=== PATIENT | male | born 1955 | race Caucasian/White ===

== ENCOUNTER → 2017-02-24 | Outpatient (CLI) | payer BC ==
--- NOTE | 2017-02-24 15:54 | MR ---
EXAMINATION TYPE: MR shoulder RT wo con DATE OF EXAM: 02/24/2017 COMPARISON: NONE HISTORY: Rt shoulder pain TECHNIQUE: Multiplanar, multisequence imaging of the right shoulder is performed without contrast. FINDINGS: Rotator Cuff: There is complete tear of the supraspinatus tendon. The supraspinatus muscle is severel y atrophic with fatty signal change. Small joint effusion is present. The infraspinatus muscle has so me fatty infiltration and degenerative changes. Acromioclavicular Joint: Hypertrophy with mild inferior spurring Glenohumeral Joint: Narrowed Labrum: There is degenerative type change within the glenoid labrum Biceps Tendon: Long head of the biceps tendon is poorly visualized. Small portion may be visualized w ithin the bicipital groove. Bone marrow signal: Postsurgical changes are within the humeral head. Marrow signal appears normal Other: The recess appears to have a filling defect present. Loose body could be present. Postsurgical changes are within the shoulder. IMPRESSION: 1. Complete tear of the supraspinatus tendon with retraction. 2. Probable complete tear of the infraspinatus tendon. 3. Fatty infiltration and atrophy of supraspinatus muscle and to a lesser degree the infraspinatus mu scle. 4. Small joint effusion. 5. Degenerative joint changes glenohumeral junction
== END | disposition home or self-care (01) ==
LOC: RADMRIMAIN 06:59
PROVIDERS: ATTEND Orthopaedic Surgery
DX: M75.121 Complete rotator cuff tear or rupture of right shoulder, not specified as traumatic (principal); M62.511 Muscle wasting and atrophy, not elsewhere classified, right shoulder

== ENCOUNTER → 2017-04-30 | Outpatient (CLI) | payer BC ==
[2017-04-30 12:54] LABS: Basophils # (A) 0.1 k/uL (0-0.2); Basophils % (A) 0 %; CH 29.9; CHCM 33.2; Eosinophils # (A) 0.2 k/uL (0-0.7); Eosinophils % (A) 2 %; HCT 45.4 % (39.0-53.0); HDW 2.73; HGB 15.3 gm/dL (13.0-17.5); Luc # (Auto) 0.33; Luc % (Auto) 2; Lymphocytes # (A) 2.5 k/uL (1.0-4.8); Lymphocytes % (A) 18 %; MCH 30.6 pg (25.0-35.0); MCHC 33.7 g/dL (31.0-37.0); MCV 90.6 fL (80.0-100.0); Mean Platelet Volume 7.7; Monocytes # (A) 0.9 k/uL (0-1.0); Monocytes % (A) 7 %; Neutrophils # (A) 9.7 k/uL (1.3-7.7); Neutrophils % (A) 71 %; RBC 5.01 m/uL (4.30-5.90); RDW 15.5 % (11.5-15.5); WBC 13.7 k/uL (3.8-10.6); WBC (Perox) 13.53
[2017-04-30 13:10] LABS: Anion Gap 9 mmol/L; Blood Urea Nitrogen 16 mg/dL (9-20); Calcium 9.1 mg/dL (8.4-10.2); Carbon Dioxide 24 mmol/L (22-30); Chloride 102 mmol/L (98-107); Glucose 143 mg/dL (74-99); Non-African American GFR(MDRD) >60 (>60 ml/min/1.73 sqM); Potassium 4.5 mmol/L (3.5-5.1); Sodium 135 mmol/L (137-145)
== END | disposition home or self-care (01) ==
LOC: LABWHC1 12:24
PROVIDERS: ATTEND Internal Medicine
DX: M12.812 Other specific arthropathies, not elsewhere classified, left shoulder (principal); Z79.1 Long term (current) use of non-steroidal anti-inflammatories (NSAID); Z79.84 Long term (current) use of oral hypoglycemic drugs; Z79.899 Other long term (current) drug therapy
CPT/HCPCS: 36415; 80048; 85025

== ENCOUNTER → 2017-08-12 | Outpatient (CLI) | payer BC ==
[2017-08-12 12:22] LABS: HCT 52.7 % (39.0-53.0); HGB 17.3 gm/dL (13.0-17.5); MCH 29.1 pg (25.0-35.0); MCHC 32.8 g/dL (31.0-37.0); MCV 88.8 fL (80.0-100.0); Mean Platelet Volume 7.1; Platelet Count 249 k/uL (150-450); RBC 5.94 m/uL (4.30-5.90); RDW 14.8 % (11.5-15.5); WBC 12.2 k/uL (3.8-10.6)
[2017-08-12 12:40] LABS: ALT 47 U/L (21-72); AST 25 U/L (17-59); Albumin 4.4 g/dL (3.5-5.0); Alkaline Phosphatase 73 U/L (38-126); Anion Gap 9 mmol/L; Blood Urea Nitrogen 19 mg/dL (9-20); Calcium 10.3 mg/dL (8.4-10.2); Carbon Dioxide 29 mmol/L (22-30); Chloride 102 mmol/L (98-107); Glucose 144 mg/dL (74-99); Potassium 5.3 mmol/L (3.5-5.1); Sodium 140 mmol/L (137-145); Total Bilirubin 0.5 mg/dL (0.2-1.3); Total Protein 7.8 g/dL (6.3-8.2)
== END | disposition home or self-care (01) ==
LOC: LABWHC1 11:59
PROVIDERS: ATTEND Physical Medicine & Rehabilitation
DX: Z51.81 Encounter for therapeutic drug level monitoring (principal); Z79.1 Long term (current) use of non-steroidal anti-inflammatories (NSAID)
CPT/HCPCS: 36415; 80053; 85027

== ENCOUNTER → 2019-08-31 | Outpatient (CLI) | payer BC, MEDICARE ==
--- NOTE | 2019-08-31 14:36 | US ---
EXAMINATION TYPE: US carotid duplex BILAT DATE OF EXAM: 08/31/2019 COMPARISON: NONE CLINICAL HISTORY: R10.84 Abd pain, R09.89 Carotid bruit, R22.41. Bruit EXAM MEASUREMENTS: RIGHT: Peak Systolic Velocity (PSV) cm/sec ----- Right CCA: 53.2 ----- Right ICA: 247.6 ----- Right ECA: 176.5 ICA/CCA ratio: 4.7 RIGHT: End Diastole cm/sec ----- Right CCA: 21.2 ----- Right ICA: 105.4 ----- Right ECA: 53.7 LEFT: Peak Systolic Velocity (PSV) cm/sec ----- Left CCA: 53.5 ----- Left ICA: 97.9 ----- Left ECA: 104.3 ICA/CCA ratio: 1.8 LEFT: End Diastole cm/sec ----- Left CCA: 20.5 ----- Left ICA: 46.2 ----- Left ECA: 22.0 VERTEBRALS (direction of flow): Right Vertebral: Antegrade Left Vertebral: Antegrade Rhythm: Normal Bilateral plaque in bulbs and right ICA. Elevated velocities in right ICA and ECA. IMPRESSION: 1. Greater than 70% stenosis within the right internal and external carotid arteries. 2. No hemodynamically significant stenosis seen in the visualized left carotid arterial system. Criteria for Assigning % of Stenosis / Diameter reduction (Estimation based on the indirect measurements of the internal carotid artery velocities (ICA PSV). 1. Normal (no stenosis)=ICA PSV < 125 cm/s: ratio < 2.0: ICA EDV<40 cm/s. 2. Less than 50% stenosis=ICA PSV < 125 cm/s: ratio < 2.0: ICA EDV<40 cm/s. 3. 50 to 69% stenosis=ICA PSV of 125 to 230 cm/s: ration 2.0 ? 4.0: ICA EDV 40-100 cm/s. 4. Greater than 70% stenosis to near occlusion= ICA PSV > 230 cm/s: ratio > 4.0: ICA EDV > 100 cm/s. 5. Near occlusion= ICA PSV velocities may be low or undetectable: variable ratio and ICA EDV. 6. Total occlusion=unable to detect flow.
--- NOTE | 2019-08-31 14:38 | US ---
EXAMINATION TYPE: US abdomen complete DATE OF EXAM: 08/31/2019 COMPARISON: NONE CLINICAL HISTORY: R10.84 Abd pain, R09.89 Carotid bruit, R22.41. Pain EXAM MEASUREMENTS: Liver Length: 18.0 cm Gallbladder Wall: .2 cm CBD: .4 cm Spleen: 13.6 cm Right Kidney: 11.5 x 4.7 x 4.5 cm Left Kidney: 12.3 x 4.8 x 4.7 cm Pancreas: Tail obscured by overlying bowel gas Liver: There is increased echogenicity of the hepatic parenchyma with diminished visualization of th e portal triads most commonly relating to hepatic steatosis and limiting evaluation for underlying he patic masses. Gallbladder: wnl Evidence for sonographic Tracy's sign: No CBD: wnl Spleen: Upper limits Right Kidney: wnl Left Kidney: Cystic area upper pole 4.8 x 4.8 x 4.8 cm. Upper IVC: wnl Abd Aorta: wnl The liver is heterogenous and hyperechoic. The intrahepatic portion of the IVC and proximal abdomina l aorta are within normal limits. There is no evidence of cholelithiasis. Common bile duct is unrem arkable. The visualized portions of the pancreas are homogenous. The spleen is upper limits of norm al size. IMPRESSION: 1. Sonographic findings most commonly related to hepatic steatosis. Correlate with liver function emy ts. 2. Borderline splenomegaly. 3. Left renal cyst measuring 4.8 cm appears simple.
== END | disposition home or self-care (01) ==
LOC: RADUSWWP 11:29
PROVIDERS: ATTEND Internal Medicine
DX: I65.21 Occlusion and stenosis of right carotid artery (principal); K76.0 Fatty (change of) liver, not elsewhere classified; N28.1 Cyst of kidney, acquired
CPT/HCPCS: 76700; 93880; 93922; 93923

== ENCOUNTER → 2019-11-05 | Outpatient (CLI) | payer MEDICARE ==
[2019-11-05 10:10] LABS: HGB 14.9 gm/dL (13.0-17.5); MCH 30.5 pg (25.0-35.0); MCHC 33.9 g/dL (31.0-37.0); Mean Platelet Volume 7.5; Platelet Count 229 k/uL (150-450); RBC 4.88 m/uL (4.30-5.90); RDW 14.3 % (11.5-15.5); WBC 13.2 k/uL (3.8-10.6)
[2019-11-05 10:15] LABS: INR 0.9 (<1.2); Prothrombin Time 9.8 sec (9.0-12.0)
[2019-11-05 10:22] LABS: ALT 24 U/L (4-49); AST 20 U/L (17-59); African American GFR (CKD) >90 (>60 ml/min/1.73 sqM); Albumin 4.4 g/dL (3.5-5.0); Albumin/Globulin Ratio 1.3; Alkaline Phosphatase 74 U/L (38-126); Anion Gap 10 mmol/L; Blood Urea Nitrogen 15 mg/dL (9-20); Calcium 9.7 mg/dL (8.4-10.2); Carbon Dioxide 23 mmol/L (22-30); Chloride 103 mmol/L (98-107); Globulin 3.3 g/dL; Glucose 167 mg/dL (74-99); Non-African American GFR(CKD) >90 (>60 ml/min/1.73 sqM); Potassium 4.5 mmol/L (3.5-5.1); Sodium 136 mmol/L (137-145); Total Bilirubin 0.5 mg/dL (0.2-1.3); Total Protein 7.7 g/dL (6.3-8.2)
== END | disposition home or self-care (01) ==
LOC: LABWHC1 08:40
PROVIDERS: ATTEND Internal Medicine Interventional Cardiology
DX: M79.604 Pain in right leg (principal); M79.605 Pain in left leg
CPT/HCPCS: 36415; 80053; 85027; 85610

== ENCOUNTER → 2019-11-22 | Outpatient (CLI) | payer MEDICARE ==
[2019-11-22 09:15] LABS: HCT 44.3 % (39.0-53.0); HGB 15.3 gm/dL (13.0-17.5); MCH 31.1 pg (25.0-35.0); MCHC 34.5 g/dL (31.0-37.0); MCV 90.2 fL (80.0-100.0); Mean Platelet Volume 7.6; Platelet Count 249 k/uL (150-450); RBC 4.91 m/uL (4.30-5.90); RDW 14.5 % (11.5-15.5); WBC 11.8 k/uL (3.8-10.6)
[2019-11-22 18:42] LABS: Albumin 4.4 g/dL (3.80-4.90); Albumin/Globulin Ratio 1.57 (1.60-3.17); Bilirubin, Conjugated 0.2 mg/dL (0.20-0.40); Bilirubin,Unconjugated 0.3 mg/dL; Chol/HDL Ratio 4.04; Globulin 2.8 g/dL (1.6-3.3); LDL Cholesterol,Calculated 39.8 mg/dL (0.0-131.0); Total Bilirubin 0.5 mg/dL (0.3-1.2); Total Protein 7.2 g/dL (6.2-8.2); VLDL Calculation 36.2 mg/dL (5.00-40.00)
== END | disposition home or self-care (01) ==
LOC: LABWHC1 08:29
PROVIDERS: ATTEND Internal Medicine
DX: E11.9 Type 2 diabetes mellitus without complications (principal); D72.829 Elevated white blood cell count, unspecified; E78.5 Hyperlipidemia, unspecified
CPT/HCPCS: 36415; 80061; 80076; 85027

== ENCOUNTER → 2019-11-27 | Outpatient (CLI) | payer MEDICARE ==
[2019-11-27 12:10] LABS: HCT 42.8 % (39.0-53.0); HGB 14.2 gm/dL (13.0-17.5); MCH 30.2 pg (25.0-35.0); MCHC 33.3 g/dL (31.0-37.0); MCV 90.6 fL (80.0-100.0); Mean Platelet Volume 7.6; Platelet Count 213 k/uL (150-450); RBC 4.72 m/uL (4.30-5.90); RDW 14.3 % (11.5-15.5); WBC 10.7 k/uL (3.8-10.6)
[2019-11-27 12:11] LABS: Prothrombin Time 10.2 sec (9.0-12.0)
[2019-11-27 19:34] LABS: African American GFR (CKD) 73.6 (60.0-200.0); Albumin 4.4 g/dL (3.80-4.90); Albumin/Globulin Ratio 1.69 (1.60-3.17); Anion Gap 10.3 mmol/L (4.00-12.00); Calcium 9.6 mg/dL (8.7-10.3); Carbon Dioxide 21.7 mmol/L (21.6-31.8); Globulin 2.6 g/dL (1.6-3.3); Non-African American GFR(CKD) 63.5 (60.0-200.0); Potassium 4.5 mmol/L (3.5-5.5); Total Bilirubin 0.5 mg/dL (0.3-1.2)
== END | disposition home or self-care (01) ==
LOC: LABWHC1 10:08
PROVIDERS: ATTEND Internal Medicine Interventional Cardiology
DX: I70.212 Atherosclerosis of native arteries of extremities with intermittent claudication, left leg (principal)
CPT/HCPCS: 36415; 80053; 85027; 85610

== ENCOUNTER 2020-01-05 19:46 | Emergency (ER) | payer MEDICARE ==
[2020-01-05 20:17] VITALS: BP 122/69; PULSE 96; RESP 20; TEMP 99.1
--- NOTE | 2020-01-05 20:57 | ED ---
Extremity Problem HPI - General Chief complaint: Extremity Problem,Nontraumatic Stated complaint: swelling at procedure site Time Seen by Provider: 01/05/20 20:28 Source: patient, family Mode of arrival: ambulatory Limitations: no limitations - History of Present Illness Initial comments: 64-year-old male patient presents to the emergency department today for evaluation of bruising and swelling to the left groin. Patient states a couple days ago he had stents placed in his right leg. States the access the site twice. States today he noticed that the area looked bruised and is swollen. States it is mildly tender but denies any pain to the area without palpation. Denies any difficulty with walking. Denies numbness, tingling, or swelling to the leg. Denies fever or chills. Patient denies any recent rash, cough, shortness of breath, chest pain, abdominal pain, nausea, vomiting, diarrhea, constipation, back pain, numbness, tingling, dizziness, weakness, hematuria, dysuria, urinary urgency, urinary frequency, headache, visual changes, or any other complaints. - Related Data Home Medications Medication Instructions Recorded Confirmed Empagliflozin/Linagliptin 1 tab PO DAILY 04/22/17 04/26/17 [Glyxambi 25 mg-5 mg Tablet] Ibuprofen [Motrin] 800 mg PO TID 04/22/17 04/26/17 Previous Rx's Medication Instructions Recorded Rivaroxaban [Xarelto] 10 mg PO DAILY #12 tab 04/26/17 Lisinopril [Prinivil] 5 mg PO DAILY #30 tablet 04/27/17 oxyCODONE-APAP 10-325MG [Percocet 1 tab PO Q6HR PRN #40 tab 04/27/17 10-325 mg] Allergies Allergy/AdvReac Type Severity Reaction Status Date / Time adhesive tape AdvReac Unknown Rash/Hives Verified 01/05/20 20:17 Review of Systems ROS Statement: Those systems with pertinent positive or pertinent negative responses have been documented in the HPI. ROS Other: All systems not noted in ROS Statement are negative. Past Medical History Past Medical History: Diabetes Mellitus Additional Past Medical History / Comment(s): STATES TYPE 2 DIABETES-NO LONGER NEEDS MEDICATION DUE TO WT LOSS-BUT TAKES IT TO HELP WITH CONTINUED WT LOSS. , PAST HX OF STAPH INFECTION RIGHT SHOULDER WITH PICC LINE ., STATES PAIN RIGHT SHOULDER AND NECK. History of Any Multi-Drug Resistant Organisms: None Reported Past Surgical History: Orthopedic Surgery Additional Past Surgical History / Comment(s): RIGHT SHOULDER X8., LEFT SHOULDER X2., PICC LINE. Past Anesthesia/Blood Transfusion Reactions: No Reported Reaction Past Psychological History: No Psychological Hx Reported Smoking Status: Former smoker Past Alcohol Use History: Occasional Past Drug Use History: None Reported - Past Family History Father Family Medical History: Cancer Additional Family Medical History / Comment(s): PROSTATE CANCER General Exam Limitations: no limitations General appearance: alert, in no apparent distress, other (This is a well- developed, well-nourished adult male patient in no acute distress. Vital signs upon presentation are temperature 99.1F, pulse 96, respirations 20, blood pressure 122/69, pulse ox 98% on room air.) Respiratory exam: Present: normal lung sounds bilaterally. Absent: respiratory distress, wheezes, rales, rhonchi, stridor Cardiovascular Exam: Present: regular rate, normal rhythm, normal heart sounds. Absent: systolic murmur, diastolic murmur, rubs, gallop, clicks GI/Abdominal exam: Present: soft, normal bowel sounds. Absent: distended, tenderness, guarding, rebound, rigid Extremities exam: Present: full ROM, normal capillary refill, other (Left groin exhibits a 2cm x 3cm area of ecchymosis and swelling. The are is tender. skin is otherwise pink, warm, dry. Cap refills less than 3 seconds. Pedal and posttibial pulses are 2+ and equal bilaterally). Absent: tenderness, pedal edema, joint swelling, calf tenderness Neurological exam: Present: alert, oriented X3, CN II-XII intact Psychiatric exam: Present: normal affect, normal mood Skin exam: Present: warm, dry, intact, normal color. Absent: rash Course Vital Signs 01/05/20 20:13 Temperature 99.1 F Pulse Rate 96 Respiratory 20 Rate Blood Pressure 122/69 O2 Sat by Pulse 98 Oximetry Medical Decision Making - Medical Decision Making 64-year-old male patient presents to the emergency department today for evaluation of bruising to the left groin. Patient had stents placed to the right leg through this access site. Physical examination did reveal a 3 cm area of ecchymosis and swelling. This is consistent with hematoma. Patient has no pain with ambulation, neurovascular status is intact to the leg. Patient be discharged follow-up with his vascular specialist for further evaluation as is possible. Return parameters discussed in detail. He verbalizes understanding and agrees with this plan. Disposition Clinical Impression: Hematoma of left lower extremity Disposition: HOME SELF-CARE Condition: Good Instructions (If sedation given, give patient instructions): Hematoma (ED) Additional Instructions: Apply ice to the area. Continue your medications as directed. Follow-up with your administrative library assistant for further evaluation as soon as possible. Return to the emergency department immediately for any new, worsening, or concerning symptoms. Is patient prescribed a controlled substance at d/c from ED?: No Referrals: None,Stated [Primary Care Provider] - 1-2 days Time of Disposition: 20:57
== END 2020-01-05 21:13 | disposition home or self-care (01) ==
LOC: EC 19:46
DX: S80.12XA Contusion of left lower leg, initial encounter (principal); E11.9 Type 2 diabetes mellitus without complications; Z79.84 Long term (current) use of oral hypoglycemic drugs; Z87.891 Personal history of nicotine dependence; Z91.048 Other nonmedicinal substance allergy status; Z98.890 Other specified postprocedural states; X58.XXXA Exposure to other specified factors, initial encounter
CPT/HCPCS: 99283

== ENCOUNTER → 2020-04-15 | Outpatient (CLI) | payer MEDICARE ==
[2020-04-15 11:24] LABS: African American GFR (CKD) 81.8 (60.0-200.0); Non-African American GFR(CKD) 70.6 (60.0-200.0)
== END | disposition home or self-care (01) ==
LOC: LABWHC1 07:04
PROVIDERS: ATTEND Surgery Vascular Surgery
DX: Z01.818 Encounter for other preprocedural examination (principal); I73.9 Peripheral vascular disease, unspecified
CPT/HCPCS: 36415; 82565; 84520

== ENCOUNTER → 2021-06-18 | Outpatient (CLI) | payer MEDICARE | END | disposition home or self-care (01) | LOC: RADUSWWP 12:12 | PROVIDERS: ATTEND Surgery Vascular Surgery | DX: M16.11 Unilateral primary osteoarthritis, right hip (principal); M87.051 Idiopathic aseptic necrosis of right femur | CPT/HCPCS: 93923 ==

== ENCOUNTER 2021-10-19 02:50 | Emergency (ER) | payer MEDICARE ==
[2021-10-19] MEDS ORDERED: PANTOPRAZOLE 40 MG/10 ML VIAL IVP STA (02:58)
[2021-10-19] MEDS ORDERED: MORPHINE SULFATE 4 MG/ML SYRINGE IV STA (03:27)
[2021-10-19 03:28] LABS: Anisocytosis Slight; Basophils % (A) 0 %; Eosinophils # (A) 0.1 k/uL (0-0.7); Eosinophils % (A) 1 %; Hypochromasia Marked; Lymphocytes # (A) 2.4 k/uL (1.0-4.8); Lymphocytes % (A) 15 %; MCH 26.8 pg (25.0-35.0); MCHC 30.9 g/dL (31.0-37.0); MCV 86.8 fL (80.0-100.0); Mean Platelet Volume 8.2; Monocytes % (A) 6 %; Neutrophils # (A) 11.7 k/uL (1.3-7.7); Neutrophils % (A) 75 %; Platelet Count 285 k/uL (150-450); Poikilocytosis Moderate; RBC 1.92 m/uL (4.30-5.90); RDW 16.2 % (11.5-15.5); WBC 15.7 k/uL (3.8-10.6)
[2021-10-19 03:37] LABS: INR 1.3 (<1.2); Partial Thromboplastin Time 26.4 sec (22.0-30.0)
--- NOTE | 2021-10-19 03:40 | ED ---
Abdominal Pain HPI - General Chief Complaint: Abdominal Pain Stated Complaint: Abd Pain Time Seen by Provider: 10/19/21 02:58 Source: patient, EMS Mode of arrival: EMS Limitations: no limitations - History of Present Illness Initial Comments: This patient is a 66-year-old man who presents to have evaluation for left-sided upper abdominal pain. He also had some blood with last bowel movement. The patient states that the pains of been going on someone intermittently for number days to week. Tonight the pain was worse. The patient usually takes Percocet but states she is out of this. He has not noted fever or chills. No vomiting. No change in urination. MD Complaint: abdominal pain -: days(s) Location: [facility] Radiation: none Migration to: no migration Severity: severe Quality: cramping, stabbing Consistency: intermittent Improves With: nothing Worsens With: nothing Associated Symptoms: hematochezia - Related Data Home Medications Medication Instructions Recorded Confirmed Atorvastatin [Lipitor] 40 mg PO DAILY 10/19/21 10/19/21 Clopidogrel [Plavix] 75 mg PO DAILY 10/19/21 10/19/21 Famotidine [Pepcid] 20 mg PO DAILY 10/19/21 10/19/21 Ferrous Sulfate [Feosol] 325 mg PO DAILY 10/19/21 10/19/21 Gabapentin [Neurontin] 100 mg PO HS 10/19/21 10/19/21 Glimepiride [Amaryl] 1 mg PO AC-BID 10/19/21 10/19/21 lisinopriL [Zestril] 2.5 mg PO DAILY 10/19/21 10/19/21 metFORMIN HCL [Glucophage] 1,000 mg PO BID 10/19/21 10/19/21 oxyCODONE-APAP 7.5-325MG [Percocet 1 tab PO TID PRN 10/19/21 10/19/21 7.5-325 mg] Allergies Allergy/AdvReac Type Severity Reaction Status Date / Time adhesive tape AdvReac Unknown Rash/Hives Verified 10/19/21 03:12 Review of Systems ROS Statement: Those systems with pertinent positive or pertinent negative responses have been documented in the HPI. ROS Other: All systems not noted in ROS Statement are negative. Constitutional: Denies: fever, chills, weakness Respiratory: Denies: cough, dyspnea Cardiovascular: Denies: chest pain, palpitations, orthopnea, edema, syncope Gastrointestinal: Reports: abdominal pain, hematochezia. Denies: nausea, vomiting, diarrhea, constipation, hematemesis, melena Genitourinary: Denies: dysuria, hematuria Musculoskeletal: Denies: back pain Skin: Denies: rash Neurological: Denies: headache, weakness, numbness Hematological/Lymphatic: Reports: easy bleeding Past Medical History Past Medical History: Diabetes Mellitus Additional Past Medical History / Comment(s): STATES TYPE 2 DIABETES-NO LONGER NEEDS MEDICATION DUE TO WT LOSS-BUT TAKES IT TO HELP WITH CONTINUED WT LOSS. , PAST HX OF STAPH INFECTION RIGHT SHOULDER WITH PICC LINE ., STATES PAIN RIGHT S HOULDER AND NECK. History of Any Multi-Drug Resistant Organisms: None Reported Past Surgical History: Orthopedic Surgery Additional Past Surgical History / Comment(s): RIGHT SHOULDER X8., LEFT SHOULDER X2., PICC LINE. Past Anesthesia/Blood Transfusion Reactions: No Reported Reaction Past Psychological History: No Psychological Hx Reported Smoking Status: Former smoker Past Alcohol Use History: Occasional Past Drug Use History: None Reported - Past Family History Father Family Medical History: Cancer Additional Family Medical History / Comment(s): PROSTATE CANCER General Exam Limitations: no limitations General appearance: alert, in no apparent distress Head exam: Present: atraumatic, normocephalic Eye exam: Present: normal appearance, other (Conjunctival pallor). Absent: scleral icterus, conjunctival injection ENT exam: Present: other (Because of pallor) Neck exam: Present: normal inspection, full ROM. Absent: tenderness, meningismus Respiratory exam: Present: normal lung sounds bilaterally. Absent: respiratory distress, wheezes, rales, rhonchi, stridor Cardiovascular Exam: Present: regular rate, normal rhythm, normal heart sounds. Absent: systolic murmur, diastolic murmur, rubs, gallop GI/Abdominal exam: Present: soft, tenderness (There is some mild tenderness left-sided abdomen.). Absent: distended, guarding, rebound, rigid, mass Extremities exam: Present: normal inspection, normal capillary refill. Absent: pedal edema, calf tenderness Back exam: Present: normal inspection. Absent: CVA tenderness (R), CVA tenderness (L) Neurological exam: Present: alert Skin exam: Present: warm, dry, intact, pallor. Absent: rash Course Vital Signs 10/19/21 10/19/21 10/19/21 03:00 03:38 05:17 Temperature 97.2 F L 98.0 F Pulse Rate 99 99 91 Respiratory 20 20 18 Rate Blood Pressure 89/65 82/54 93/58 O2 Sat by Pulse 98 100 Oximetry 10/19/21 10/19/21 10/19/21 05:27 05:57 06:15 Temperature 97.4 F L 97.9 F 97.9 F Pulse Rate 92 96 98 Respiratory 22 20 22 Rate Blood Pressure 95/62 100/76 100/76 O2 Sat by Pulse 100 Oximetry 10/19/21 10/19/21 10/19/21 08:00 08:15 08:30 Temperature 98.2 F 98.5 F Pulse Rate 98 101 H 99 Respiratory 22 22 22 Rate Blood Pressure 103/74 116/73 119/104 O2 Sat by Pulse 99 98 98 Oximetry 10/19/21 10/19/21 10/19/21 08:45 09:00 09:15 Temperature 98.4 F 98.0 F 98.2 F Pulse Rate 93 97 99 Respiratory 22 22 22 Rate Blood Pressure 122/75 118/75 118/90 O2 Sat by Pulse 98 100 98 Oximetry 10/19/21 10/19/21 10/19/21 09:35 09:54 10:42 Temperature 98.4 F Pulse Rate 100 86 Respiratory 22 20 Rate Blood Pressure 128/87 133/94 O2 Sat by Pulse 100 100 100 Oximetry Medical Decision Making - Medical Decision Making This patient is 66-year-old man presenting with lower gastrointestinal bleeding, abdominal pain. On the exam he does appear to be pale. The abdominal exam is not remarkable there is no real tenderness on the exam. The patient is not having further bleeding here in emergency department. Transfusion is started. Patient given analgesia. The troponin is rechecked and is approximately the same. The patient's EKG does not appear frankly ischemic. Further questioning reveals that over the course the past month he has had episodes of chest pain but not having any now. Given that there is no GI coverage here today, I discussed with patient and he would prefer to go back to [facility] where he has some establish care. Case is discussed with the electronic funds transfer coordinator there and they did connect me with Dr. Wu. We discussed the details of the case and he accepts patient for transfer. There is concern for diverticular disease versus ischemic bowel, the patient taking Xarelto so no additional coagulation especially in light of the GI bleed/anemia - Lab Data Result diagrams: 10/19/21 03:16 10/19/21 03:16 Lab Results 10/19/21 10/19/21 10/19/21 Range/Units 03:10 03:15 03:16 WBC 15.7 H (3.8-10.6) k/uL RBC 1.92 L (4.30-5.90) m/uL Hgb 5.1 L* (13.0-17.5) gm/dL Hct 16.7 L* (39.0-53.0) % MCV 86.8 (80.0-100.0) fL MCH 26.8 (25.0-35.0) pg MCHC 30.9 L (31.0-37.0) g/dL RDW 16.2 H (11.5-15.5) % Plt Count 285 (150-450) k/uL MPV 8.2 Neutrophils % 75 % Lymphocytes % 15 % Monocytes % 6 % Eosinophils % 1 % Basophils % 0 % Neutrophils # 11.7 H (1.3-7.7) k/uL Lymphocytes # 2.4 (1.0-4.8) k/uL Monocytes # 1.0 (0-1.0) k/uL Eosinophils # 0.1 (0-0.7) k/uL Basophils # 0.0 (0-0.2) k/uL Hypochromasia Marked Poikilocytosis Moderate Anisocytosis Slight PT (9.0-12.0) sec INR (<1.2) APTT (22.0-30.0) sec Sodium (137-145) mmol/L Potassium (3.5-5.1) mmol/L Chloride (98-107) mmol/L Carbon Dioxide (22-30) mmol/L Anion Gap mmol/L BUN (9-20) mg/dL Creatinine (0.66-1.25) mg/dL Est GFR (CKD-EPI)AfAm (>60 ml/min/1.73 sqM) Est GFR (CKD-EPI)NonAf (>60 ml/min/1.73 sqM) Glucose (74-99) mg/dL Lactic Ac Sepsis Rflx Plasma Lactic Acid Jeremiah (0.7-2.0) mmol/L Calcium (8.4-10.2) mg/dL Total Bilirubin (0.2-1.3) mg/dL AST (17-59) U/L ALT (4-49) U/L Alkaline Phosphatase (38-126) U/L Troponin I (0.000-0.034) ng/mL Total Protein (6.3-8.2) g/dL Albumin (3.5-5.0) g/dL Blood Type O Negative Blood Type Confirm O Negative Blood Type Recheck No Previous Record Bld Type Recheck Status CABO Indicated Antibody Screen NEGATIVE Crossmatch See Detail Spec Expiration Date 10/22/2021 - 230910/19/21 10/19/21 10/19/21 Range/Units 03:16 03:16 03:16 WBC (3.8-10.6) k/uL RBC (4.30-5.90) m/uL Hgb (13.0-17.5) gm/dL Hct (39.0-53.0) % MCV (80.0-100.0) fL MCH (25.0-35.0) pg MCHC (31.0-37.0) g/dL RDW (11.5-15.5) % Plt Count (150-450) k/uL MPV Neutrophils % % Lymphocytes % % Monocytes % % Eosinophils % % Basophils % % Neutrophils # (1.3-7.7) k/uL Lymphocytes # (1.0-4.8) k/uL Monocytes # (0-1.0) k/uL Eosinophils # (0-0.7) k/uL Basophils # (0-0.2) k/uL Hypochromasia Poikilocytosis Anisocytosis PT 14.0 H (9.0-12.0) sec INR 1.3 H (<1.2) APTT 26.4 (22.0-30.0) sec Sodium 129 L (137-145) mmol/L Potassium 4.9 (3.5-5.1) mmol/L Chloride 97 L (98-107) mmol/L Carbon Dioxide 16 L (22-30) mmol/L Anion Gap 16 mmol/L BUN 47 H (9-20) mg/dL Creatinine 1.57 H (0.66-1.25) mg/dL Est GFR (CKD-EPI)AfAm 52 (>60 ml/min/1.73 sqM) Est GFR (CKD-EPI)NonAf 45 (>60 ml/min/1.73 sqM) Glucose 136 H (74-99) mg/dL Lactic Ac Sepsis Rflx Plasma Lactic Acid Jeremiah 9.4 H* (0.7-2.0) mmol/L Calcium 9.4 (8.4-10.2) mg/dL Total Bilirubin 0.5 (0.2-1.3) mg/dL AST 49 (17-59) U/L ALT 31 (4-49) U/L Alkaline Phosphatase 52 (38-126) U/L Troponin I (0.000-0.034) ng/mL Total Protein 6.3 (6.3-8.2) g/dL Albumin 3.6 (3.5-5.0) g/dL Blood Type Blood Type Confirm Blood Type Recheck Bld Type Recheck Status Antibody Screen Crossmatch Spec Expiration Date 10/19/21 10/19/21 10/19/21 Range/Units 03:16 04:14 06:21 WBC (3.8-10.6) k/uL RBC (4.30-5.90) m/uL Hgb (13.0-17.5) gm/dL Hct (39.0-53.0) % MCV (80.0-100.0) fL MCH (25.0-35.0) pg MCHC (31.0-37.0) g/dL RDW (11.5-15.5) % Plt Count (150-450) k/uL MPV Neutrophils % % Lymphocytes % % Monocytes % % Eosinophils % % Basophils % % Neutrophils # (1.3-7.7) k/uL Lymphocytes # (1.0-4.8) k/uL Monocytes # (0-1.0) k/uL Eosinophils # (0-0.7) k/uL Basophils # (0-0.2) k/uL Hypochromasia Poikilocytosis Anisocytosis PT (9.0-12.0) sec INR (<1.2) APTT (22.0-30.0) sec Sodium (137-145) mmol/L Potassium (3.5-5.1) mmol/L Chloride (98-107) mmol/L Carbon Dioxide (22-30) mmol/L Anion Gap mmol/L BUN (9-20) mg/dL Creatinine (0.66-1.25) mg/dL Est GFR (CKD-EPI)AfAm (>60 ml/min/1.73 sqM) Est GFR (CKD-EPI)NonAf (>60 ml/min/1.73 sqM) Glucose (74-99) mg/dL Lactic Ac Sepsis Rflx Y Plasma Lactic Acid Jeremiah (0.7-2.0) mmol/L Calcium (8.4-10.2) mg/dL Total Bilirubin (0.2-1.3) mg/dL AST (17-59) U/L ALT (4-49) U/L Alkaline Phosphatase (38-126) U/L Troponin I 3.050 H* 3.610 H* (0.000-0.034) ng/mL Total Protein (6.3-8.2) g/dL Albumin (3.5-5.0) g/dL Blood Type Blood Type Confirm Blood Type Recheck Bld Type Recheck Status Antibody Screen Crossmatch Spec Expiration Date - EKG Data -: EKG Interpreted by Nv EKG shows normal: sinus rhythm, axis (Normal), intervals (Normal), QRS complexes (Normal), ST-T waves (Normal) Rate: normal (Rate 98 bpm) Interpretation: normal EKG Disposition Clinical Impression: GI bleeding, Anemia, Abdominal pain Narrative: Possible ischemic bowel versus diverticular disease Disposition: OTHER INSTITUTION NOT DEFINED Condition: Serious Instructions (If sedation given, give patient instructions): Abdominal Pain (ED) Is patient prescribed a controlled substance at d/c from ED?: No Referrals: Abbey Radford MD [Primary Care Provider] - 1-2 days - Out of Hospital Transfer - Req. Specs Out of Hospital Transfer - Requested Specifics: Medical ICU
[2021-10-19 03:58] LABS: Albumin 3.6 g/dL (3.5-5.0); Calcium 9.4 mg/dL (8.4-10.2); Potassium 4.9 mmol/L (3.5-5.1); Total Bilirubin 0.5 mg/dL (0.2-1.3); Total Protein 6.3 g/dL (6.3-8.2)
[2021-10-19 03:59] LABS: HCT 16.7 % (39.0-53.0); HGB 5.1 gm/dL (13.0-17.5)
[2021-10-19] MEDS ORDERED: SODIUM CHLORIDE 0.9% 500 ML 500 ML IV STA (05:20)
[2021-10-19] MEDS ORDERED: SODIUM CHLORIDE 0.9% 1,000 ML IV STA (05:20)
--- NOTE | 2021-10-19 05:53 | CT ---
EXAMINATION TYPE: CT abdomen pelvis wo con DATE OF EXAM: 10/19/2021 COMPARISON: None HISTORY: pain Blood in the stool. CT DLP: 781.7 mGycm Automated exposure control for dose reduction was used. Images obtained from the diaphragm to the floor the pelvis without contrast. There is some patchy mild atelectasis at the lung bases. There is no pleural effusion. There is no pe ricardial effusion. Heart is borderline enlarged. Liver and spleen are intact. Stomach is intact. There is no pancreatic mass. The bile ducts are not d ilated. Gallbladder has normal size. There is no adrenal mass. There is a 5 cm cortical cyst upper pole left kidney. There is a 5 mm calcu brannon interpolar right kidney. No hydronephrosis. Ureters are not dilated. There is no retroperitoneal adenopathy. Appendix is posterior and appears normal. There is no mesenteric edema. There is no ascit es or free air. No bowel obstruction. Bladder distends smoothly. There is some fat stranding and complex density in the right inguinal august on. There is atherosclerotic vascular calcification in the femoral arteries. 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 There is 2.4 cm irregular mass on the anterior aspect of the proximal right femoral artery. There is no evidence of inguinal hernia. No free fluid in the pelvis. No mesenteric edema. There is n o ascites or free air. No bowel obstruction. The lumbar vertebrae have normal alignment. There is degenerative disc space narrowing at L4-5 and L5 -S1 with spurring and vacuum disc. The bony pelvis is intact. Hip joints are intact. There are degene rative cysts in the right acetabulum. IMPRESSION: Mild subsegmental atelectasis of the lung bases. Mild hepatomegaly. Liver measures 20 cm. Nonobstructing right renal calculus. Right inguinal mass that could be aneurysm or hematoma on the anterior aspect of the right femoral ar any. Atherosclerotic vascular disease. Correlation with the surgical history is needed. Normal appen joseph. I do not see a cause for rectal bleeding.
[2021-10-19] MEDS ORDERED: HYDROmorphone 1 MG/ML 1 ML SYRINGE IVP STA (05:55)
[2021-10-19] MEDS ORDERED: HYDROmorphone 0.5 MG/0.5 ML SYRINGE IVP STA (06:43)
[2021-10-19] MEDS ORDERED: PIPERACILLIN-TAZOBACTAM 3.375 GM in SODIUM CHLORIDE 0.9% 100 ML IVPB STA (09:04)
[2021-10-19 09:55] VITALS: TEMP 98.4
--- NOTE | 2021-10-19 10:27 | XR ---
EXAMINATION TYPE: XR chest 1V portable DATE OF EXAM: 10/19/2021 COMPARISON: CT abdomen pelvis same date HISTORY: Dyspnea TECHNIQUE: Single frontal view of the chest is obtained. FINDINGS: Patient is rotated, there are overlying leads. Interstitium is increased, patchy density in the perihilar regions, lower lobes. There is no pleural effusion or pneumothorax seen. The cardiac silhouette size is within normal limits. The osseous structures are remarkable for postop change th e right shoulder, arthropathy noted in the left shoulder. IMPRESSION: Correlate for possible interstitial lung disease, there may be basilar atelectasis, diff icult to exclude pneumonia, consider follow-up PA and lateral chest x-ray
[2021-10-19 10:44] VITALS: BP 133/94; PULSE 86; RESP 20
== END 2021-10-19 11:19 | disposition other institution (70) ==
LOC: EC 02:50
DX: D64.9 Anemia, unspecified (principal); N20.0 Calculus of kidney; E11.9 Type 2 diabetes mellitus without complications; Z79.84 Long term (current) use of oral hypoglycemic drugs; Z87.891 Personal history of nicotine dependence; Z79.4 Long term (current) use of insulin; Z91.09 Other allergy status, other than to drugs and biological substances
CPT/HCPCS: 36415; 94660; 93005; 86900; 86901; 80053; 83605; 84484; 85025; 85610; 85730; 86850; 86920; 71045; 74176; 99285; 96374; 96375; 96376; 96361; P9016; J2270; J1170 ×2; C9113

== ENCOUNTER 2021-11-19 08:02 | Observation (INO) | payer MEDICARE ==
--- NOTE | 2021-11-19 08:23 | ED ---
General Adult HPI - General Stated complaint: SHEMAR Time Seen by Provider: 11/19/21 08:04 Source: patient, EMS, RN notes reviewed, old records reviewed Mode of arrival: EMS Limitations: no limitations - History of Present Illness Initial comments: Patient is a 66 from male with past medical history remarkable for CAD, diabetes who recently had 4 cardiac stents placed over the last 2 weeks, last receiving 3 since yesterday presents emergency Department complaining of progressively worsening shortness of breath. She also has a history of peripheral vascular disease with multiple peripheral stents. States that the shortness of breath began last night, however he woke this morning it was worse. Patient was hypoxic on room air for EMS and the 80%'s. He was dyspneic intact. Has been having a mild nonproductive cough. Denies any fevers. Denies any chest pain or discomfort. Denies any abdominal pain, nausea, vomiting. Is on aspirin and Plavix. Received aspirin from EMS. Patient's only complaint is shortness of breath. Uncertain what is causing it. Denies any lower extremity swelling, history of blood clots. Denies any history of heart failure. Once again, sta emy he has never had chest pain over the last few days. - Related Data Home Medications Medication Instructions Recorded Confirmed Atorvastatin [Lipitor] 40 mg PO DAILY 10/19/21 11/19/21 Clopidogrel [Plavix] 75 mg PO DAILY 10/19/21 11/19/21 Ferrous Sulfate [Feosol] 325 mg PO DAILY 10/19/21 11/19/21 Glimepiride [Amaryl] 1 mg PO AC-BID 10/19/21 11/19/21 metFORMIN HCL [Glucophage] 1,000 mg PO DIRECTED 10/19/21 11/19/21 Aspirin 81 mg PO DAILY 11/19/21 11/19/21 Folic Acid 1 mg PO DAILY 11/19/21 11/19/21 Isosorbide Mononitrate ER [Imdur] 30 mg PO DAILY 11/19/21 11/19/21 Nitroglycerin Sl Tabs [Nitrostat] 0.4 mg SUBLINGUAL Q5M PRN 11/19/21 11/19/21 carvediloL [Coreg] 3.125 mg PO BID 11/19/21 11/19/21 lisinopriL [Zestril] 5 mg PO DAILY 11/19/21 11/19/21 Allergies Allergy/AdvReac Type Severity Reaction Status Date / Time adhesive tape Allergy Unknown Rash/Hives Verified 11/19/21 09:43 Review of Systems ROS Statement: Those systems with pertinent positive or pertinent negative responses have been documented in the HPI. Review of Systems: CONST: Denies fever EYES: Denies blurry vision ENT: Denies nasal congestion C/V: Denies Chest pain RESP: Endorses shortness of breath GI: Denies abdominal pain : Denies dysuria SKIN: Denies rash. MSK: Denies joint pain. NEURO: Denies headache ROS Other: All systems not noted in ROS Statement are negative. Past Medical History Past Medical History: Coronary Artery Disease (CAD), Diabetes Mellitus Additional Past Medical History / Comment(s): STATES TYPE 2 DIABETES-NO LONGER NEEDS MEDICATION DUE TO WT LOSS-BUT TAKES IT TO HELP WITH CONTINUED WT LOSS. , PAST HX OF STAPH INFECTION RIGHT SHOULDER WITH PICC LINE ., STATES PAIN RIGHT SHOULDER AND NECK. History of Any Multi-Drug Resistant Organisms: None Reported Past Surgical History: Heart Catheterization With Stent, Orthopedic Surgery Additional Past Surgical History / Comment(s): RIGHT SHOULDER X8., LEFT SHOULDER X2., PICC LINE. Past Anesthesia/Blood Transfusion Reactions: No Reported Reaction Past Psychological History: No Psychological Hx Reported Smoking Status: Former smoker Past Alcohol Use History: Occasional Past Drug Use History: None Reported - Past Family History Father Family Medical History: Cancer Additional Family Medical History / Comment(s): PROSTATE CANCER General Exam - General Exam Comments Initial Comments: General: Appears in no acute distress. HEAD: Normal with no signs of head trauma. EYES: PERRLA, EOMI, conjunctiva normal, no discharge. ENT: Hearing grossly intact, normal oropharynx. RESPIRATORY: Bilateral crackles. Increased work of breathing. Saturating 96- 100% on nonrebreather. C/V: Regular rate and rhythm. S1 and S2 auscultated, no edema, peripheral pulses 2+ and intact throughout ABD: Abd is soft, nontender, nondistended EXT: Normal range of motion, no obvious deformity SKIN: No rashes or lesions observed on exposed skin. NEURO: Alert and oriented 4. No focal sensory strength deficits. Limitations: no limitations Course Vital Signs 11/19/21 11/19/21 11/19/21 08:02 08:12 08:13 Temperature 97.7 F Pulse Rate 121 H Respiratory 44 H Rate Blood Pressure 194/130 O2 Sat by Pulse 96 Oximetry Fraction of 100 100 Inspired Oxygen (FIO2) 11/19/21 11/19/21 11/19/21 08:15 08:22 08:31 Temperature Pulse Rate 115 H 101 H Respiratory 42 H 44 H 30 H Rate Blood Pressure 163/116 139/90 O2 Sat by Pulse 100 100 Oximetry Fraction of Inspired Oxygen (FIO2) 11/19/21 11/19/21 11/19/21 08:45 09:10 09:11 Temperature Pulse Rate 105 H Respiratory 36 H Rate Blood Pressure 147/103 141/95 O2 Sat by Pulse 100 Oximetry Fraction of 60 Inspired Oxygen (FIO2) 11/19/21 09:45 Temperature Pulse Rate 97 Respiratory 23 Rate Blood Pressure 121/75 O2 Sat by Pulse 100 Oximetry Fraction of Inspired Oxygen (FIO2) Medical Decision Making - Medical Decision Making Based on the patient's presentation and physical exam, he is having significant respiratory distress. He is to, tachycardiac. Mildly hypertensive as well. He'll be placed on BiPAP immediately upon arrival. I did do a bedside echo, which revealed bilateral pulmonary edema in the upper, mid, lower lobes. IVC is plethoric as well. This is suggestive of volume overloaded state, possible flash pulmonary edema or cardiogenic cause. Difficult to obtain EF. Therefore we'll obtain cardiac labs, EKG, chest x-ray as well as CT angiogram rule out pulmonary embolism. He was in agreement with this plan. He will be maintained on BiPAP at this time. Will be given nitro if he is persistently hypertensive. Patient was in agreement this plan. He already received 324mg of aspirin from EMS. We will contact [facility] the patient received his cardiac stents to attempt to obtain further records. Patient's EKG shows precordial lead T-wave inversions in V4 through V6. No other acute findings other than the T-wave inversion in II. Chest x-ray shows bilateral pulmonary edema. At this time, patient's respirations are improved. Saturations are improved. Vital signs are normalizing. Tachycardia is resolving. He is maintained on BiPAP at this time. He states he is breathing more easily at this time. Patient's hypertension did resolve on BiPAP alone. We'll continue treatment at this time. We will continue to monitor the patient, I do not believe that he requires any form of Preload reduction with nitroglycerin, as his hypertension has resolved as well as improvement in SHEMAR. Patient was in agreement with this plan. Laboratory studies were remarkable for a leukocytosis of 16.7. Patient's hemoglobin 11 is 11.2, which is slightly decreased below baseline however he did recently have a procedure. No obvious signs of bleeding. D-dimer is elevated to 1.41. Troponin is elevated to 0.594. BNP is elevated to 3800. Patient is Covid and flu negative. CT chests and dry for PE was obtained which revealed no pulmonary embolism but did show bilateral pulmonary edema. There are also trace small pleural effusions bilaterally. Per CT imaging, findings consistent with CHF. On reevaluation, patient's vital signs have normalized. He is on BiPAP. Difficulty in breathing has vastly improved. Echo is pending. I discussed with him that I would like to admit him to the hospital at this time. Be started on IV Lasix. He was in agreement this plan. I did speak with cardiology, Dr. Marley who was in agreement this plan. We discussed elevated troponin which is likely secondary to his recent catheterization and stent placement, for which records are still pending. He recommended trending the troponin, as well as subcutaneous epinephrine at this time which I was in agreement with. He is already on dual antiplatelet therapy, received aspirin as well as morning but we will restart home meds which includes Plavix. I discussed the case with Dr. aldana the admitting physician who accepted the patient. Patient was therefore admitted to 3 S. stepdown on BiPAP in serious condition. Patients documentation from the outside hospital arrived and show that he receiv ed a circumflex stent as well as two RCA stents yesterday. - Lab Data Result diagrams: 11/19/21 08:11 11/19/21 08:11 Lab Results 11/19/21 11/19/21 11/19/21 Range/Units 08:11 08:11 08:11 WBC 16.7 H (3.8-10.6) k/uL RBC 3.93 L (4.30-5.90) m/uL Hgb 11.2 L D (13.0-17.5) gm/dL Hct 35.3 L (39.0-53.0) % MCV 90.0 (80.0-100.0) fL MCH 28.6 (25.0-35.0) pg MCHC 31.8 (31.0-37.0) g/dL RDW 17.8 H (11.5-15.5) % Plt Count 184 (150-450) k/uL MPV 7.6 Neutrophils % 80 % Lymphocytes % 11 % Monocytes % 6 % Eosinophils % 1 % Basophils % 0 % Neutrophils # 13.4 H (1.3-7.7) k/uL Lymphocytes # 1.9 (1.0-4.8) k/uL Monocytes # 1.0 (0-1.0) k/uL Eosinophils # 0.2 (0-0.7) k/uL Basophils # 0.1 (0-0.2) k/uL Hypochromasia Slight Poikilocytosis Slight Anisocytosis Slight PT 10.3 (9.0-12.0) sec INR 0.9 (<1.2) APTT 18.1 L (22.0-30.0) sec D-Dimer 1.41 H (<0.60) mg/L FEU Sodium 135 L (137-145) mmol/L Potassium 4.7 (3.5-5.1) mmol/L Chloride 105 (98-107) mmol/L Carbon Dioxide 19 L (22-30) mmol/L Anion Gap 11 mmol/L BUN 18 (9-20) mg/dL Creatinine 1.04 (0.66-1.25) mg/dL Est GFR (CKD-EPI)AfAm 87 (>60 ml/min/1.73 sqM) Est GFR (CKD-EPI)NonAf 75 (>60 ml/min/1.73 sqM) Glucose 154 H (74-99) mg/dL Plasma Lactic Acid Jeremiah (0.7-2.0) mmol/L Calcium 8.7 (8.4-10.2) mg/dL Total Bilirubin 0.9 (0.2-1.3) mg/dL AST 31 (17-59) U/L ALT 27 (4-49) U/L Alkaline Phosphatase 68 (38-126) U/L Troponin I (0.000-0.034) ng/mL NT-Pro-B Natriuret Pep pg/mL Total Protein 7.3 (6.3-8.2) g/dL Albumin 4.0 (3.5-5.0) g/dL Coronavirus (PCR) (Not Detectd) Influenza Type A RNA (Not Detectd) Influenza Type B (PCR) (Not Detectd) 11/19/21 11/19/21 11/19/21 Range/Units 08:11 08:11 08:11 WBC (3.8-10.6) k/uL RBC (4.30-5.90) m/uL Hgb (13.0-17.5) gm/dL Hct (39.0-53.0) % MCV (80.0-100.0) fL MCH (25.0-35.0) pg MCHC (31.0-37.0) g/dL RDW (11.5-15.5) % Plt Count (150-450) k/uL MPV Neutrophils % % Lymphocytes % % Monocytes % % Eosinophils % % Basophils % % Neutrophils # (1.3-7.7) k/uL Lymphocytes # (1.0-4.8) k/uL Monocytes # (0-1.0) k/uL Eosinophils # (0-0.7) k/uL Basophils # (0-0.2) k/uL Hypochromasia Poikilocytosis Anisocytosis PT (9.0-12.0) sec INR (<1.2) APTT (22.0-30.0) sec D-Dimer (<0.60) mg/L FEU Sodium (137-145) mmol/L Potassium (3.5-5.1) mmol/L Chloride (98-107) mmol/L Carbon Dioxide (22-30) mmol/L Anion Gap mmol/L BUN (9-20) mg/dL Creatinine (0.66-1.25) mg/dL Est GFR (CKD-EPI)AfAm (>60 ml/min/1.73 sqM) Est GFR (CKD-EPI)NonAf (>60 ml/min/1.73 sqM) Glucose (74-99) mg/dL Plasma Lactic Acid Jeremiah 2.0 (0.7-2.0) mmol/L Calcium (8.4-10.2) mg/dL Total Bilirubin (0.2-1.3) mg/dL AST (17-59) U/L ALT (4-49) U/L Alkaline Phosphatase (38-126) U/L Troponin I 0.594 H* (0.000-0.034) ng/mL NT-Pro-B Natriuret Pep 3850 pg/mL Total Protein (6.3-8.2) g/dL Albumin (3.5-5.0) g/dL Coronavirus (PCR) (Not Detectd) Influenza Type A RNA (Not Detectd) Influenza Type B (PCR) (Not Detectd) 11/19/21 11/19/21 Range/Units 08:11 08:11 WBC (3.8-10.6) k/uL RBC (4.30-5.90) m/uL Hgb (13.0-17.5) gm/dL Hct (39.0-53.0) % MCV (80.0-100.0) fL MCH (25.0-35.0) pg MCHC (31.0-37.0) g/dL RDW (11.5-15.5) % Plt Count (150-450) k/uL MPV Neutrophils % % Lymphocytes % % Monocytes % % Eosinophils % % Basophils % % Neutrophils # (1.3-7.7) k/uL Lymphocytes # (1.0-4.8) k/uL Monocytes # (0-1.0) k/uL Eosinophils # (0-0.7) k/uL Basophils # (0-0.2) k/uL Hypochromasia Poikilocytosis Anisocytosis PT (9.0-12.0) sec INR (<1.2) APTT (22.0-30.0) sec D-Dimer (<0.60) mg/L FEU Sodium (137-145) mmol/L Potassium (3.5-5.1) mmol/L Chloride (98-107) mmol/L Carbon Dioxide (22-30) mmol/L Anion Gap mmol/L BUN (9-20) mg/dL Creatinine (0.66-1.25) mg/dL Est GFR (CKD-EPI)AfAm (>60 ml/min/1.73 sqM) Est GFR (CKD-EPI)NonAf (>60 ml/min/1.73 sqM) Glucose (74-99) mg/dL Plasma Lactic Acid Jeremiah (0.7-2.0) mmol/L Calcium (8.4-10.2) mg/dL Total Bilirubin (0.2-1.3) mg/dL AST (17-59) U/L ALT (4-49) U/L Alkaline Phosphatase (38-126) U/L Troponin I (0.000-0.034) ng/mL NT-Pro-B Natriuret Pep pg/mL Total Protein (6.3-8.2) g/dL Albumin (3.5-5.0) g/dL Coronavirus (PCR) Not Detected (Not Detectd) Influenza Type A RNA Not Detected (Not Detectd) Influenza Type B (PCR) Not Detected (Not Detectd) - EKG Data -: EKG Interpreted by Me EKG Comments: 12-lead Electrocardiogram Interpretation Note EKG was reviewed and interpreted by myself. 12-lead ECG performed at 0823 is interpreted by me as revealing normal sinus rhythm at a rate of 107 beats per minute. [place] is normal. [place] interval is 167 ms, QRS duration 72 ms, QTc is 417 ms.. There are new T-wave inversions in lateral precordial leads as well as lead 2 which were not seen on prior EKGs. Could be secondary to recent cardiac catheterization and multiple stents placed yesterday. No other acute ST segment changes to suggest acute ischemia.. R wave progression across the precordium wa s satisfactory. By my interpretation, this EKG does reveal possible new onset findings of ischemia including precordial T-wave inversions in the lateral precordial leads. Could be secondary to recent cardiac stenting.. Critical Care Time Critical Care Time: Yes Total Critical Care Time: 35 Critical Care Time: Upon my evaluation, this patient had a high probability of imminent or life- threatening deterioration due to CHF exacerbation, hypoxia likely secondary to flash pulmonary edema, hypertensive urgency which has improved, which required my direct attention, intervention, and personal management. I have personally provided 35 minutes of critical care time exclusive of time spent on separately billable procedures. Time includes review of laboratory data, radiology results, discussion with consultants, and monitoring for potential decompensation. Interventions were performed as documented in my note. Disposition Clinical Impression: Congestive heart failure, Flash pulmonary edema, Hypertensive urgency, Elevated troponin Disposition: ADMITTED IP TO THIS HOSP Condition: Serious Time of Disposition: 09:50
--- NOTE | 2021-11-19 08:27 | XR ---
EXAMINATION TYPE: XR chest 1V portable DATE OF EXAM: 11/19/2021 Comparison: 10/19/2021 Clinical History: 66-year-old male shortness of breath, cough Findings: Heart is enlarged. Perihilar and diffuse interstitial opacities. No sizable pleural effusion. Partial ly visualized traversing right shoulder arthroplasty. Degenerative changes left shoulder. Aeration sl ightly worsened from prior exam. Impression: Cardiomegaly with perihilar and diffuse interstitial opacities. Consider CHF with interstitial pulmon dahlia edema versus atypical pneumonias.
[2021-11-19 08:34] LABS: Calcium 8.7 mg/dL (8.4-10.2); Potassium 4.7 mmol/L (3.5-5.1); Total Bilirubin 0.9 mg/dL (0.2-1.3); Total Protein 7.3 g/dL (6.3-8.2)
[2021-11-19 08:36] LABS: Anisocytosis Slight; Basophils # (A) 0.1 k/uL (0-0.2); Basophils % (A) 0 %; Eosinophils # (A) 0.2 k/uL (0-0.7); Eosinophils % (A) 1 %; HCT 35.3 % (39.0-53.0); HGB 11.2 gm/dL (13.0-17.5); Hypochromasia Slight; Lymphocytes # (A) 1.9 k/uL (1.0-4.8); Lymphocytes % (A) 11 %; MCH 28.6 pg (25.0-35.0); MCHC 31.8 g/dL (31.0-37.0); Mean Platelet Volume 7.6; Monocytes % (A) 6 %; Neutrophils # (A) 13.4 k/uL (1.3-7.7); Neutrophils % (A) 80 %; Platelet Count 184 k/uL (150-450); Poikilocytosis Slight; RBC 3.93 m/uL (4.30-5.90); RDW 17.8 % (11.5-15.5); WBC 16.7 k/uL (3.8-10.6)
[2021-11-19 08:44] LABS: INR 0.9 (<1.2); Prothrombin Time 10.3 sec (9.0-12.0)
[2021-11-19 08:46] LABS: Partial Thromboplastin Time 18.1 sec (22.0-30.0)
[2021-11-19] MEDS ORDERED: FUROSEMIDE 10 MG/ML 4 ML VIAL IV ONE (09:15)
--- NOTE | 2021-11-19 09:52 | CT ---
EXAMINATION TYPE: CT angio chest DATE OF EXAM: 11/19/2021 COMPARISON: Radiograph 11/19/2021 HISTORY: 66-year-old male shortness of breath, Recent hospitalization, concern for PE TECHNIQUE: Contiguous axial scanning of the chest performed with IV Contrast, patient injected with 1 00 ml mL of Isovue 370. Coronal/sagittal MIP reconstructions performed. CT DLP: 491 mGycm Automated exposure control for dose reduction was used. FINDINGS: Heart upper limits of normal in size without pericardial effusion. No flattening of the interventricu lar septum reflux of contrast into the hepatic veins. Extensive LAD and circumflex coronary artery ca lcifications are present. Ectatic ascending aorta at 3.7 cm. Mild atherosclerotic arch calcifications. Conventional vessel bran dmitriy anatomy. Portions of the pulmonary arterial system opacifies appropriately but there are limitations due to th e motion artifact. Segmental and more distal arterial branches of the lower lungs are limited to nond iagnostic and emboli in these locations cannot be excluded on the basis of this exam. No large centra l or lobar branch pulmonary embolus. No thoracic lymphadenopathy by CT size criteria. Diffuse smooth septal lines. Minimal patchy groundglass. Small bilateral pleural effusions with adjacent atelectasis. A 5.8 cm cyst medial upper pole left kidney. Bones: Partially visualized reversed shoulder arthroplasty. Moderate to advanced degenerative disc di sease mid to lower thoracic spine. Scattered facet arthropathy. IMPRESSION: 1. MOTION ARTIFACT LIMITING THE EVALUATION. MANY OF THE SEGMENTAL AND MORE DISTAL ARTERIAL BRANCHES O F THE LOWER LUNGS ARE LIMITED TO NONDIAGNOSTIC. NO LARGE CENTRAL OR LOBAR BRANCH PULMONARY EMBOLUS. 2. BORDERLINE HEART SIZE, EXTENSIVE LAD AND CIRCUMFLEX CORONARY ARTERY CALCIFICATIONS, DIFFUSE SMOOTH SEPTAL LINES, MINIMAL SCATTERED GROUNDGLASS. CONSTELLATION OF FINDINGS SUGGEST CHF WITH DEVELOPING I NTERSTITIAL PULMONARY EDEMA. 3. SMALL PLEURAL EFFUSIONS WITH ADJACENT ATELECTASIS.
[2021-11-19] MEDS ORDERED: NALOXONE 0.4 MG/ML 1 ML VIAL IV PRN (10:03)
[2021-11-19] MEDS: CLOPIDOGREL 75 MG TAB PO SCH (10:27)
[2021-11-19] MEDS: carvediloL 3.125 MG TAB PO SCH ×2 (10:27→18:58)
[2021-11-19] MEDS: ISOSORBIDE MONONITRATE ER 30 MG TAB.ER.24H PO SCH (10:27)
[2021-11-19] MEDS: lisinopriL 5 MG TAB PO SCH (10:27)
[2021-11-19] MEDS: FERROUS SULFATE 325 MG TAB PO SCH (10:27)
[2021-11-19] MEDS: HEPARIN SODIUM,PORCINE/PF 5,000 UNIT/0.5 ML SYRINGE SQ SCH ×3 (10:28→22:31)
[2021-11-19] MEDS: FOLIC ACID 1 MG TAB PO SCH (10:28)
--- NOTE | 2021-11-19 11:34 | P.CRDCN ---
History of Present Illness History of present illness: This is a 66 year old male with a past medical history of Coronary artery disease s/p recent stenting (mid circumflex, mid RCA, and distal RCA) on 11/18/21, Also states he had a PCI last week, Peripheral artery disease s/p stenting recently in September 2021, and stenting to the right SFA, right common femoral artery, right iliac artery 11/2019, hypertension, dyslipidemia, former smoker. He follows with Dr. Hinojosa in [place]. We are asked to see in consultation for heart failure. Patient presented with acute onset of shortness of breath that began at 530am. He underwent 3 vessel PCI yesterday 11/18/21 and was discharged same day. He states he was doing well at home. However, overnight woke up severely short of breath, worsened this morning. He called EMS spO2 was in the 80s on room air and was brought to the emergency department for further evaluation. Patient placed on BIPAP and IV Lasix, BP improved. He states he was undergoing "normal" workup for his heart and was told he needed a heart catheterization. He states he had a "scan". He denies being told he has heart failure or cardiomyopathy, He denies history of NE or Stroke. DIAGNOSTICS EKG reveals sinus tachycardia, heart rate 107, T wave inversions in leads II, lateral leads, V4-V6, old anterior NE Telemetry tracings indicate sinus rhythm Chest xray cardiomegaly with perihilar diffuse opacities. Laboratory reviewed, no evidence of pulmonary embolism, extensive LAD and circumflex coronary artery calcifications, developing interstitial pulmonary edema. Small pleural effusions. Current home cardiac medications include Plavix 75 mg daily, atorvastatin 40 mg daily, lisinopril 5 mg daily, Coreg 3.125 mg twice a day, Imdur 30 mg daily, aspirin 81 mg daily REVIEW OF SYSTEMS At the time of my exam: CONSTITUTIONAL: Denies fever or chills. CARDIOVASCULAR: Denies chest pain, Reports shortness of breath, +orthopnea, +PND Denies palpitations. RESPIRATORY: Denies cough. GASTROINTESTINAL: Denies abdominal pain, diarrhea, constipation, nausea or vomiting. MUSCULOSKELETAL: Denies myalgias. NEUROLOGIC: Denies numbness, tingling, headacbe or weakness. ENDOCRINE: Denies fatigue, weight change, polydipsia or polyurina. GENITOURINARY: Denies burning, hematuria or urgency with micturation. HEMATOLOGIC: Denies history of anemia or bleeding. PHYSICAL EXAMINATION Blood pressure 116/59 HR 81 afebrile 100% on BIPAP CONSTITUTIONAL: Short of breath HEENT: Head is normocephalic. Pupils are equal, round. Sclerae anicteric. Mucous membranes of the mouth are moist. No JVD. No carotid bruit. CHEST EXAMINATION: Lungs are mild crackles in bases to auscultation. No chest wall tenderness is noted on palpation or with deep breathing. HEART EXAMINATION: Regular rate and rhythm. S1, S2 heard. No murmurs, gallops or rub. ABDOMEN: Soft, nontender. Positive bowel sounds. EXTREMITIES: 2+ peripheral pulses, no lower extremity edema and no calf tenderness. NEUROLOGIC EXAMINATION: Patient is awake, alert and oriented x3. ASSESSMENT Acute on chronic heart failure, likely flash pulmonary edema, echo pending Coronary artery disease s/p recent stenting (mid circumflex, mid RCA, and distal RCA) on 11/18/21, Also states he had a PCI in end 10/2021 Peripheral artery disease s/p stenting recently in September 2021, and stenting to the right SFA, right common femoral artery, right iliac artery 11/2019 Hypertension Dyslipidemia Former smoker PLAN Continue IV Lasix 40mg BID Monitor I/Os, daily weights Monitor renal function and electrolytes Continue dual antiplatelet therapy with aspirin and Plavix Continue statin, Coreg, Imdur, Lisinopril Obtain 2D echocardiogram and doppler study to assess cardiac structure and function. Further recommendations based on clinical course Nurse practitioner note has been reviewed by physician. Signing provider agrees with the documented findings, assessment, and plan of care. Past Medical History Past Medical History: Coronary Artery Disease (CAD), Diabetes Mellitus Additional Past Medical History / Comment(s): STATES TYPE 2 DIABETES-NO LONGER NEEDS MEDICATION DUE TO WT LOSS-BUT TAKES IT TO HELP WITH CONTINUED WT LOSS. , PAST HX OF STAPH INFECTION RIGHT SHOULDER WITH PICC LINE ., STATES PAIN RIGHT SHOULDER AND NECK. History of Any Multi-Drug Resistant Organisms: None Reported Past Surgical History: Heart Catheterization With Stent, Orthopedic Surgery Additional Past Surgical History / Comment(s): RIGHT SHOULDER X8., LEFT SHOULDER X2., PICC LINE. Past Anesthesia/Blood Transfusion Reactions: No Reported Reaction Past Psychological History: No Psychological Hx Reported Smoking Status: Former smoker Past Alcohol Use History: Occasional Past Drug Use History: None Reported - Past Family History Father Family Medical History: Cancer Additional Family Medical History / Comment(s): PROSTATE CANCER Medications and Allergies Home Medications Medication Instructions Recorded Confirmed Type Atorvastatin [Lipitor] 40 mg PO DAILY 10/19/21 11/19/21 History Clopidogrel [Plavix] 75 mg PO DAILY 10/19/21 11/19/21 History Ferrous Sulfate [Feosol] 325 mg PO DAILY 10/19/21 11/19/21 History Glimepiride [Amaryl] 1 mg PO AC-BID 10/19/21 11/19/21 History metFORMIN HCL [Glucophage] 1,000 mg PO DIRECTED 10/19/21 11/19/21 History Aspirin 81 mg PO DAILY 11/19/21 11/19/21 History Folic Acid 1 mg PO DAILY 11/19/21 11/19/21 History Isosorbide Mononitrate ER [Imdur] 30 mg PO DAILY 11/19/21 11/19/21 History Nitroglycerin Sl Tabs [Nitrostat] 0.4 mg SUBLINGUAL Q5M PRN 11/19/21 11/19/21 History carvediloL [Coreg] 3.125 mg PO BID 11/19/21 11/19/21 History lisinopriL [Zestril] 5 mg PO DAILY 11/19/21 11/19/21 History Allergies Allergy/AdvReac Type Severity Reaction Status Date / Time adhesive tape Allergy Unknown Rash/Hives Verified 11/19/21 09:43 Physical Exam Vitals: Vital Signs Temp Pulse Resp BP Pulse Ox FiO2 11/19/21 09:45 97 23 121/75 100 11/19/21 09:11 60 11/19/21 09:10 105 H 36 H 141/95 100 11/19/21 08:45 147/103 11/19/21 08:31 101 H 30 H 139/90 100 11/19/21 08:22 115 H 44 H 163/116 100 11/19/21 08:15 42 H 11/19/21 08:13 100 11/19/21 08:12 100 11/19/21 08:02 97.7 F 121 H 44 H 194/130 96 Intake and Output 11/18/21 11/19/21 11/19/21 22:59 06:59 14:59 Output Total 1400 Balance -1400 Output: Urine 1400 Other: Weight 82.554 kg Results 11/19/21 08:11 11/19/21 08:11 Cardiac Enzymes 11/19/21 11/19/21 Range/Units 08:11 08:11 AST 31 (17-59) U/L Troponin I 0.594 H* (0.000-0.034) ng/mL Coagulation 11/19/21 Range/Units 08:11 PT 10.3 (9.0-12.0) sec APTT 18.1 L (22.0-30.0) sec CBC 11/19/21 Range/Units 08:11 WBC 16.7 H (3.8-10.6) k/uL RBC 3.93 L (4.30-5.90) m/uL Hgb 11.2 L D (13.0-17.5) gm/dL Hct 35.3 L (39.0-53.0) % Plt Count 184 (150-450) k/uL Comprehensive Metabolic Panel 11/19/21 Range/Units 08:11 Sodium 135 L (137-145) mmol/L Potassium 4.7 (3.5-5.1) mmol/L Chloride 105 (98-107) mmol/L Carbon Dioxide 19 L (22-30) mmol/L BUN 18 (9-20) mg/dL Creatinine 1.04 (0.66-1.25) mg/dL Glucose 154 H (74-99) mg/dL Calcium 8.7 (8.4-10.2) mg/dL AST 31 (17-59) U/L ALT 27 (4-49) U/L Alkaline Phosphatase 68 (38-126) U/L Total Protein 7.3 (6.3-8.2) g/dL Albumin 4.0 (3.5-5.0) g/dL Current Medications Generic Name Dose Route Start Last Admin Trade Name Freq PRN Reason Stop Dose Admin Aspirin 81 mg 11/20/21 09:00 Aspirin 81 Mg PO DAILY [facility] Atorvastatin Calcium 40 mg 11/20/21 09:00 Atorvastatin 40 Mg Tab PO DAILY [facility] Carvedilol 3.125 mg 11/19/21 10:15 11/19/21 10:27 Carvedilol 3.125 Mg Tab PO 3.125 mg BID-W/MEALS [facility] Administration Clopidogrel Bisulfate 75 mg 11/19/21 10:15 11/19/21 10:27 Clopidogrel 75 Mg Tab PO 75 mg DAILY [facility] Administration Ferrous Sulfate 325 mg 11/19/21 10:15 11/19/21 10:27 Ferrous Sulfate 325 Mg Tab PO 325 mg DAILY [facility] Administration Folic Acid 1 mg 11/19/21 10:15 11/19/21 10:28 Folic Acid 1 Mg Tab PO 1 mg DAILY [facility] Administration Furosemide 40 mg 11/19/21 21:00 Furosemide 10 Mg/Ml 4 Ml Vial IV Q12HR [facility] Glimepiride 1 mg 11/19/21 17:30 Glimepiride 1 Mg Tab PO AC-BID [facility] Heparin Sodium (Porcine) 5,000 unit 11/19/21 10:15 11/19/21 10:28 Heparin Sodium,Porcine/Pf 5,000 Unit/0.5 Ml Syringe SQ 5,000 unit Q8HR [facility] Administration Isosorbide Mononitrate 30 mg 11/19/21 10:15 11/19/21 10:27 Isosorbide Mononitrate Er 30 Mg Tab.Er.24h PO 30 mg DAILY [facility] Administration Lisinopril 5 mg 11/19/21 10:15 11/19/21 10:27 Lisinopril 5 Mg Tab PO 5 mg DAILY [facility] Administration Metformin HCl 1,000 mg 11/21/21 07:30 Metformin 500 Mg Tab PO BID-W/MEALS [facility] Naloxone HCl 0.2 mg 11/19/21 10:03 Naloxone 0.4 Mg/Ml 1 Ml Vial IV Q2M PRN Opioid Reversal Intake and Output 11/18/21 11/19/21 11/19/21 22:59 06:59 14:59 Output Total 1400 Balance -1400 Output: Urine 1400 Other: Weight 82.554 kg Patient Weight 11/20/21 06:59 Weight 82.554 kg 11/19/21 08:11 11/19/21 08:11
--- NOTE | 2021-11-19 12:19 | CA ---
Transthoracic Echo Report Name: Yvon Washington Age: 66 Gender: M : 1955 Exam Date: 11/19/2021 09:20 Exam Location: [facility] Ht (in): 68 Wt (lb): 182 Ordering Physician: Gurinder Williamson MD Attending/Referring Phys: Anger Control Counselor Abril Corona RDCS Procedure CPT: Indications: flash pulmonary edema/chf Cardiac Hx: Technical Quality: Technically difficult study Contrast 1: Lumason Total Dose (mL): 4 Contrast 2: Total Dose (mL): MEASUREMENTS (Male / Female) Normal Values 2D ECHO LV Diastolic Diameter PLAX 6.1 cm 4.2 - 5.9 / 3.9 - 5.3 cm LV Systolic Diameter PLAX 4.4 cm IVS Diastolic Thickness 0.9 cm 0.6 - 1.0 / 0.6 - 0.9 cm LVPW Diastolic Thickness 1.2 cm 0.6 - 1.0 / 0.6 - 0.9 cm LV Relative Wall Thickness 0.3 RV Internal Dim ED PLAX 3.9 cm LA Volume 91.5 cm??? 18 - 58 / 22 - 52 cm??? M-MODE Aortic Root Diameter MM 3.4 cm LA Systolic Diameter MM 4.6 cm LA Ao Ratio MM 1.4 AV Cusp Separation MM 1.9 cm DOPPLER AV Peak Velocity 173.4 cm/s AV Peak Gradient 12.0 mmHg LVOT Peak Velocity 80.6 cm/s LVOT Peak Gradient 2.6 mmHg MV Area PHT 5.0 cm??? Mitral E Point Velocity 102.9 cm/s Mitral A Point Velocity 69.6 cm/s Mitral E to A Ratio 1.5 MV Deceleration Time 152.5 ms TR Peak Velocity 267.8 cm/s TR Peak Gradient 28.7 mmHg Right Ventricular Systolic Press 33.4 mmHg FINDINGS Left Ventricle Mildly increased left ventricular diastolic diameter. Left ventricular ejection fraction is estimated at 25 %. Mainly apical hypokinesis with basal sparing which may be seen with Takotsubo's cardiomyopathy. Right Ventricle Normal right ventricular size. Right ventricular systolic pressure within normal limits. Right Atrium Normal right atrial size. Left Atrium Severely increased left atrial volume. No evidence for an atrial septal defect. Mitral Valve Moderate mitral regurgitation. Aortic Valve No aortic stenosis. Tricuspid Valve Mild tricuspid regurgitation. Pulmonic Valve Trace pulmonic regurgitation. Pericardium No pleural effusion. Aorta Normal size aortic root and proximal ascending aorta. CONCLUSIONS Left ventricular ejection fraction 25% Mainly apical hypokinesis with basal sparing which may be seen with Takotsubo's cardiomyopathy. Clinical correlation recommended. Severely dilated left atrium Moderate mitral regurgitation Mild tricuspid regurgitation RVSP 33 Previewed by: Dr. Dale Fuchs DO (Electronically Signed) Final Date: 19 November 2021 12:18
--- NOTE | 2021-11-19 13:37 | HP ---
HISTORY AND PHYSICAL DATE OF SERVICE: 11/19/2021 CHIEF COMPLAINT: Shortness of breath. HISTORY OF PRESENT ILLNESS: This 66-year-old gentleman with a past medical history of CAD, CABG, history of diabetes mellitus, type 2, peripheral vascular disease, being followed by Dr. Radfrod in the outpatient setting, was complaining of increasing shortness of breath. The patient had features of flash pulmonary edema. Chest x-ray showed diffuse opacity. Cardiology is following the patient. Patient was started on Lasix and also on BiPAP for acute respiratory failure. CTA showed cardiomegaly and small pleural effusions. A 2D echo which was done today showed ejection fraction about 25%. There is no history of any fever, rigors, chills. PAST MEDICAL HISTORY: History of CAD, diabetes mellitus. MEDICATIONS: Home medications are reviewed and include Plavix. Doses and other medications are noted. ALLERGIES: TAPE. FAMILY HISTORY: History of prostate cancer. SOCIAL HISTORY: Previous history of smoking. REVIEW OF SYSTEMS: Fourteen-point review of systems negative except as mentioned earlier. PHYSICAL EXAMINATION: Pulse 81, blood pressure 116/59, respiration 19, pulse ox is 100% on BiPAP. The patient is extremely short of breath. HEENT: Conjunctivae normal. NECK: No jugular venous distention. CARDIOVASCULAR: S1, S2 muffled. RESPIRATION: Bilateral scattered rhonchi and crackles. Expiratory wheezing. ABDOMEN: Soft. LEGS: No edema. No swelling. NERVOUS SYSTEM: No focal deficit. LABS: WBC 16.3, hemoglobin 11.7. Sodium 135. ASSESSMENT: 1. Congestive heart failure, acute exacerbation, with acute on chronic systolic dysfunction, ejection fraction 15%. 2. Acute hypoxic respiratory failure, on BiPAP. 3. History of coronary artery disease. 4. Diabetes mellitus, type 2. 5. History of nicotine dependence. RECOMMENDATIONS AND DISCUSSION: In this 66-year-old gentleman who presented with multiple complex medical issues, we will monitor the patient closely, continue the current medications, continue with Lasix. Will also add bronchodilators. Cardiology and pulmonology consultations. COPD is also another possibility. We will monitor the patient closely. See orders for further details. Further recommendations to follow. MMODL / IJN: [id number] /
[2021-11-19] MEDS ORDERED: IPRATROPIUM-ALBUTEROL 3 ML NEB INHALATION PRN (13:57)
--- NOTE | 2021-11-19 14:16 | P.CNPUL ---
History of Present Illness Consult date: 11/19/21 Requesting physician: Jemal Amin Reason for consult: dyspnea, hypoxemia, abnormal CXR/CT Chief complaint: Acute hypoxic respiratory failure, shortness of breath History of present illness: 66-year-old male patient of Dr. Radford, with past medical history of coronary artery disease with previous bypass grafting, diabetes mellitus type 2, peripheral vascular disease with previous intervention, [id number] smoking history, hypertension, hyperlipidemia, who was discharged from [facility] in [place], [place] yesterday on 11/18/2021. Patient has been increasingly short of breath, and noted that his oxygen saturations were low in the 80s at home. Patient underwent coronary artery stenting 3 this week, and one stent was placed last week. In addition patient stated that he had spent 20 days in the hospital for recent history of GI bleeding where he required transfusion with 12 units of packed red blood cells. This morning he presented to the emergency department on 11/19/2021 with complaints of severe shortness of breath, patient could not get his breath and, when EMS arrived his pulse ox was in the 80s. He was having a mild nonproductive cough, denied any fevers, no chest pain, or discomfort, denies any lower extremity swelling, no history of blood clots. Denies any history of heart failure. Chest x-ray showed cardiomegaly with perihilar and diffuse interstitial opacities. Patient was placed on 100% nonrebreather show and subsequently required BiPAP support. He was tachycardic with a rate of 121 but sinus mechanism, respiratory rate was in the 40s, she was in severe respiratory distress. Was given a dose of IV Lasix 40 mg 1, and was started on maintenance dose of Lasix 40 mg every 8 hours, has produced 2.7 L and urine output, he is breathing much easier, currently on 4 L of oxygen with pulse ox of 99%. He was seen by cardiology, echocardiogram has been completed showing left ventricular ejection fraction of 25%, and mainly apical hypokinesis with basal sparing that could be seen with Dr. Thorne cardiomyopathy. There was severely increased left atrial volume, moderate mitral regurgitation, mild tricuspid regurgitation, right ventricular systolic pressure was 33 mmHg. currently breathing much comfortably. Able to speak in full sentences, denies any chest pain. Review of Systems All systems: negative Constitutional: Denies chills, Denies fever Eyes: denies blurred vision, denies pain Ears, nose, mouth and throat: Denies headache, Denies sore throat Cardiovascular: Denies chest pain, Denies shortness of breath Respiratory: Reports dyspnea, Denies cough Gastrointestinal: Denies abdominal pain, Denies diarrhea, Denies nausea, Denies vomiting Musculoskeletal: Denies myalgias Integumentary: Denies pruritus, Denies rash Neurological: Denies numbness, Denies weakness Psychiatric: Denies anxiety, Denies depression Endocrine: Denies fatigue, Denies weight change Past Medical History Past Medical History: Coronary Artery Disease (CAD), Diabetes Mellitus Additional Past Medical History / Comment(s): STATES TYPE 2 DIABETES-NO LONGER NEEDS MEDICATION DUE TO WT LOSS-BUT TAKES IT TO HELP WITH CONTINUED WT LOSS. , PAST HX OF STAPH INFECTION RIGHT SHOULDER WITH PICC LINE ., STATES PAIN RIGHT SHOULDER AND NECK. History of Any Multi-Drug Resistant Organisms: None Reported Past Surgical History: Heart Catheterization With Stent, Orthopedic Surgery Additional Past Surgical History / Comment(s): RIGHT SHOULDER X8., LEFT SHOULDER X2., PICC LINE. Past Anesthesia/Blood Transfusion Reactions: No Reported Reaction Past Psychological History: No Psychological Hx Reported Smoking Status: Former smoker Past Alcohol Use History: Occasional Past Drug Use History: None Reported - Past Family History Father Family Medical History: Cancer Additional Family Medical History / Comment(s): PROSTATE CANCER Medications and Allergies Home Medications Medication Instructions Recorded Confirmed Type Atorvastatin [Lipitor] 40 mg PO DAILY 10/19/21 11/19/21 History Clopidogrel [Plavix] 75 mg PO DAILY 10/19/21 11/19/21 History Ferrous Sulfate [Feosol] 325 mg PO DAILY 10/19/21 11/19/21 History Glimepiride [Amaryl] 1 mg PO AC-BID 10/19/21 11/19/21 History metFORMIN HCL [Glucophage] 1,000 mg PO DIRECTED 10/19/21 11/19/21 History Aspirin 81 mg PO DAILY 11/19/21 11/19/21 History Folic Acid 1 mg PO DAILY 11/19/21 11/19/21 History Isosorbide Mononitrate ER [Imdur] 30 mg PO DAILY 11/19/21 11/19/21 History Nitroglycerin Sl Tabs [Nitrostat] 0.4 mg SUBLINGUAL Q5M PRN 11/19/21 11/19/21 History carvediloL [Coreg] 3.125 mg PO BID 11/19/21 11/19/21 History lisinopriL [Zestril] 5 mg PO DAILY 11/19/21 11/19/21 History Allergies Allergy/AdvReac Type Severity Reaction Status Date / Time adhesive tape Allergy Unknown Rash/Hives Verified 11/19/21 09:43 Physical Exam Vitals: Vital Signs Temp Pulse Resp BP Pulse Ox FiO2 11/19/21 13:50 99 11/19/21 13:00 88 20 103/66 99 11/19/21 11:00 81 18 116/59 100 40 11/19/21 09:45 97 23 121/75 100 11/19/21 09:11 60 11/19/21 09:10 105 H 36 H 141/95 100 11/19/21 08:45 147/103 11/19/21 08:31 101 H 30 H 139/90 100 11/19/21 08:22 115 H 44 H 163/116 100 11/19/21 08:15 42 H 11/19/21 08:13 100 11/19/21 08:12 100 11/19/21 08:02 97.7 F 121 H 44 H 194/130 96 Intake and Output 11/18/21 11/19/21 11/19/21 22:59 06:59 14:59 Output Total 2700 Balance -2700 Output: Urine 2700 Other: Weight 82.554 kg GENERAL EXAM: Alert, very pleasant, 66-year-old white male, on 4 L of oxygen pulse ox of 99%, currently off BiPAP support was on BiPAP support with pressure of 12 and 6 and FiO2 of 40% previously comfortable in no apparent distress. HEAD: Normocephalic/atraumatic. EYES: Normal reaction of pupils, equal size. Conjunctiva pink, sclera white. NOSE: Clear with pink turbinates. THROAT: No erythema or exudates. NECK: No masses, no JVD, no thyroid enlargement, no adenopathy. CHEST: No chest wall deformity. Symmetrical expansion. LUNGS: Equal air entry with diffuse crackles CVS: Regular rate and rhythm, normal S1 and S2, no gallops, no murmurs, no rubs ABDOMEN: Soft, nontender. No hepatosplenomegaly, normal bowel sounds, no guarding or rigidity. EXTREMITIES: No clubbing, no edema, no cyanosis, 2+ pulses and upper and lower extremities. MUSCULOSKELETAL: Muscle strength and tone normal. SPINE: No scoliosis or deformity SKIN: No rashes CENTRAL NERVOUS SYSTEM: Alert and oriented -3. No focal deficits, tone is normal in all 4 extremities. PSYCHIATRIC: Alert and oriented -3. Appropriate affect. Intact judgment and insight. Results - Laboratory Findings CBC and BMP: 11/19/21 08:11 11/19/21 08:11 PT/INR, D-dimer PT 10.3 sec (9.0-12.0) 11/19/21 08:11 INR 0.9 (<1.2) 11/19/21 08:11 D-Dimer 1.41 mg/L FEU (<0.60) H 11/19/21 08:11 Abnormal lab findings: Abnormal Labs 11/19/21 11/19/21 11/19/21 08:11 08:11 08:11 WBC 16.7 H RBC 3.93 L Hgb 11.2 L D Hct 35.3 L RDW 17.8 H Neutrophils # 13.4 H APTT 18.1 L D-Dimer 1.41 H Sodium 135 L Carbon Dioxide 19 L Glucose 154 H Troponin I 11/19/21 08:11 WBC RBC Hgb Hct RDW Neutrophils # APTT D-Dimer Sodium Carbon Dioxide Glucose Troponin I 0.594 H* - Diagnostic Findings Chest x-ray: report reviewed CT scan - chest: report reviewed Additional studies: EKG reviewed Assessment and Plan Plan: Assessment: #1. Acute pulmonary edema, related to acute systolic CHF, echocardiogram showed severely impaired LV function with EF of 25%, and apical hypokinesis #2. Possible Takotsubo cardiomyopathy #3. Acute hypoxic respiratory failure related to the above #4. Coronary artery disease with recent stenting, patient received 3 stents this week and one stent the week prior at the [facility] #5. Peripheral vascular disease with previous intervention to the right SFA, right common femoral artery and right iliac artery #6. History of [id number] smoking #7. Leukocytosis, possibly reactive #8. Elevated troponin level, rule out non-ST elevated myocardial infarction #9. Diabetes mellitus type 2 #10. Hypertension #11. Hyperlipidemia Plan: Continue IV diuretics Patient is on Coreg and lisinopril He is tolerating nasal cannula trial May use BiPAP support intermittently Monitor electrolytes, renal profile, Continue weaning FiO2 to maintain O2 saturations at or above 94% Breathing much more comfortably Echocardiogram has been noted Cardiology recommendations Continue to follow I have personally seen and examined the patient, performed the documentation and the assessment and plan as written. Number of minutes spent on the visit: [15] Time with Patient: Greater than 30
[2021-11-19] MEDS: IPRATROPIUM-ALBUTEROL 3 ML NEB INHALATION SCH ×2 (15:27→19:32)
[2021-11-19] MEDS: FUROSEMIDE 10 MG/ML 4 ML VIAL IV SCH ×2 (16:59→22:31)
[2021-11-19] MEDS: GLIMEPIRIDE 1 MG TAB PO SCH (17:00)
[2021-11-19 20:09] LABS: Glucose,Whole Blood 94 mg/dL (75-99)
[2021-11-19] MEDS ORDERED: FUROSEMIDE 10 MG/ML 4 ML VIAL IV SCH (21:00)
[2021-11-19] MEDS: ALPRAZolam 0.25 MG TAB PO PRN (22:29)
[2021-11-20 06:28] LABS: Glucose,Whole Blood 151 mg/dL (75-99)
[2021-11-20] MEDS: carvediloL 3.125 MG TAB PO SCH (06:55)
[2021-11-20] MEDS: GLIMEPIRIDE 1 MG TAB PO SCH ×2 (06:55→17:05)
[2021-11-20 06:59] LABS: Anisocytosis Slight; Basophils % (A) 0 %; Eosinophils # (A) 0.1 k/uL (0-0.7); Eosinophils % (A) 2 %; HCT 33.3 % (39.0-53.0); HGB 10.8 gm/dL (13.0-17.5); Lymphocytes # (A) 1.5 k/uL (1.0-4.8); Lymphocytes % (A) 22 %; MCH 29.3 pg (25.0-35.0); MCHC 32.5 g/dL (31.0-37.0); MCV 90.1 fL (80.0-100.0); Mean Platelet Volume 7.8; Monocytes # (A) 0.6 k/uL (0-1.0); Monocytes % (A) 9 %; Neutrophils # (A) 4.5 k/uL (1.3-7.7); Neutrophils % (A) 65 %; Platelet Count 162 k/uL (150-450); Poikilocytosis Slight; WBC 6.9 k/uL (3.8-10.6)
[2021-11-20 07:11] LABS: Calcium 8.8 mg/dL (8.4-10.2); Total Bilirubin 0.7 mg/dL (0.2-1.3); Total Protein 7.1 g/dL (6.3-8.2)
[2021-11-20] MEDS: IPRATROPIUM-ALBUTEROL 3 ML NEB INHALATION SCH ×4 (07:46→20:52)
--- NOTE | 2021-11-20 08:22 | XR ---
EXAMINATION TYPE: XR chest 1V DATE OF EXAM: 11/20/2021 CLINICAL HISTORY: Difficulty breathing progress study. TECHNIQUE: Single AP portable upright view of the chest is obtained. COMPARISON: Chest x-ray and CTA chest from 2 days earlier FINDINGS: Improved bilateral increased opacities. Cardiac silhouette size stable and within normal l imits. Metallic hardware from prior shoulder surgery is partially imaged. IMPRESSION: Improved bilateral edema and/or infiltrates and small bilateral pleural effusions.
[2021-11-20] MEDS: ISOSORBIDE MONONITRATE ER 30 MG TAB.ER.24H PO SCH (09:35)
[2021-11-20] MEDS: HEPARIN SODIUM,PORCINE/PF 5,000 UNIT/0.5 ML SYRINGE SQ SCH (09:35)
[2021-11-20] MEDS: ASPIRIN 81 MG PO SCH (09:35)
[2021-11-20] MEDS: FUROSEMIDE 10 MG/ML 4 ML VIAL IV SCH (09:36)
[2021-11-20] MEDS: ATORVASTATIN 40 MG TAB PO SCH (09:36)
[2021-11-20] MEDS: CLOPIDOGREL 75 MG TAB PO SCH (09:36)
[2021-11-20] MEDS: lisinopriL 5 MG TAB PO SCH (09:36)
[2021-11-20] MEDS: ENOXAPARIN 100 MG/ML SYRINGE SQ SCH ×2 (12:22→20:36)
[2021-11-20] MEDS: FOLIC ACID 1 MG TAB PO SCH (12:23)
[2021-11-20] MEDS: FERROUS SULFATE 325 MG TAB PO SCH (12:23)
--- NOTE | 2021-11-20 12:34 | P.PN ---
Subjective Progress Note Date: 11/20/21 Principal diagnosis: Shortness of breath, CHF. 66-year-old male patient of Dr. Radford, with past medical history of coronary artery disease with previous bypass grafting, diabetes mellitus type 2, peripheral vascular disease with previous intervention, 56-[id number] smoking history, hypertension, hyperlipidemia, who was discharged from [facility] in [place], [place] yesterday on 11/18/2021. Patient has been increasingly short of breath, and noted that his oxygen saturations were low in the 80s at home. Patient underwent coronary artery stenting 3 this week, and one stent was placed last week. In addition patient stated that he had spent 20 days in the hospital for recent history of GI bleeding where he required transfusion with 12 units of packed red blood cells. This morning he presented to the emergency department on 11/19/2021 with complaints of severe shortness of breath, patient could not get his breath and, when EMS arrived his pulse ox was in the 80s. He was having a mild nonproductive cough, denied any fevers, no chest pain, or discomfort, denies any lower extremity swelling, no history of blood clots. Denies any history of heart failure. Chest x-ray showed cardiomegaly with perihilar and diffuse interstitial opacities. Patient was placed on 100% nonrebreather show and subsequently required BiPAP support. He was tachycardic with a rate of 121 but sinus mechanism, respiratory rate was in the 40s, she was in severe respiratory distress. Was given a dose of IV Lasix 40 mg 1, and was started on maintenance dose of Lasix 40 mg every 8 hours, has produced 2.7 L and urine output, he is breathing much easier, currently on 4 L of oxygen with pulse ox of 99%. He was seen by cardiology, echocardiogram has been completed showing left ventricular ejection fraction of 25%, and mainly apical hypokinesis with basal sparing that could be seen with Dr. Thorne cardiomyopathy. There was severely increased left atrial volume, moderate mitral regurgitation, mild tricuspid regurgitation, right ventricular systolic pressure was 33 mmHg. currently breathing much comfortably. Able to speak in full sentences, denies any chest pain. Progress note dated 11/20/2021. 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 The patient does have a history of CAD, significant tobacco use, hypertension, hyperlipidemia, and recent catheterization with stent placements. Currently, the patient's doing much better. He's feeling much better. His breathing is much improved. He is currently on 4 L nasal cannula. Saturations are excellent, and his vital signs are stable. White count 6.9, hemoglobin 10.8, hematocrit 33.3, and platelet count 262,000. Sodium 136, potassium 4, chlorides 102, CO2 26, BUN 19, and creatinine 1.12. Troponins were 0.594, 1.470, and 1.150. N-terminal proBNP was 3850. Chest x-ray showed a pattern of pulmonary edema. Today's chest x-ray, is nearly normal. Objective - Vital Signs Vital signs: Vital Signs Temp 97.5 F L 11/20/21 09:29 Pulse 72 11/20/21 11:53 Resp 17 11/20/21 09:29 BP 106/69 11/20/21 09:29 Pulse Ox 98 11/20/21 09:29 FiO2 40 11/19/21 11:00 Intake & Output 11/19/21 11/20/21 11/20/21 18:59 06:59 18:59 Output Total 3600 2360 Balance -3600 -2360 Weight 82.554 kg Output: Urine 3600 2360 Other: Voiding Method Bedside Commode Urinal Urinal Urinal # Voids 3 - Exam No acute distress, oriented 3. Currently on 4 L nasal cannula. HEENT examination is grossly unremarkable. Neck supple. Full range of motion. No adenopathy thyromegaly or neck vein distention. Cardiovascular examination reveals regular rhythm rate. S1-S2 normal. No S3 or S4. No discernible murmur noted. Heart rate is 74 bpm. Lungs reveal mostly clear breath sounds. Minimal scattered rhonchi. No wheezes. No crackles. Saturations are 98%. Breath sounds are equal bilaterally. Abdomen soft bowel sounds are heard. No masses or tenderness. Extremities are intact. No cyanosis clubbing or edema. Skin is without rash or lesion. Neurologic examination is brief but nonfocal. - Labs CBC & Chem 7: 11/20/21 06:18 11/20/21 06:18 Labs: Abnormal Lab Results - Last 24 Hours (Table) 11/19/21 11/20/21 11/20/21 Range/Units 13:15 06:18 06:18 RBC 3.70 L (4.30-5.90) m/uL Hgb 10.8 L (13.0-17.5) gm/dL Hct 33.3 L (39.0-53.0) % RDW 18.0 H (11.5-15.5) % Sodium 136 L (137-145) mmol/L Glucose 134 H (74-99) mg/dL POC Glucose (mg/dL) (75-99) mg/dL Troponin I 1.470 H* (0.000-0.034) ng/mL 11/20/21 11/20/21 Range/Units 06:18 06:24 RBC (4.30-5.90) m/uL Hgb (13.0-17.5) gm/dL Hct (39.0-53.0) % RDW (11.5-15.5) % Sodium (137-145) mmol/L Glucose (74-99) mg/dL POC Glucose (mg/dL) 151 H (75-99) mg/dL Troponin I 1.150 H* (0.000-0.034) ng/mL Assessment and Plan Assessment: Acute pulmonary edema, likely related to acute systolic dysfunction and CHF, with an ejection fraction of 25% and apical hypokinesis. Possible Takotsubo's cardiomyopathy. CAD, with recent stenting 3. Peripheral last occlusive disease. History of 79-[id number]-[id number] tobacco use. Elevated troponin, rule out non-ST segment elevation myocardial infarction. Type 2 diabetes mellitus. History of hypertension. History of hyperlipidemia. Plan: Plan dated 11/20/2021. The patient looks clinically much better today than he did yesterday. His chest x-ray today is nearly normal. The patient is currently nothing by mouth. Aime arently according to the nurse, cardiology is considering a heart catheterization. The patient's pest control chemical technician is a [place], [place]. He may wait and the catheterization done elsewhere. From the pulmonary standpoint, the patient's doing well. He remains on 4 L nasal cannula. No additional rec ommendations are made. He can use BiPAP intermittently if he wishes. Time with Patient: Less than 30
--- NOTE | 2021-11-20 12:54 | P.PN ---
Subjective This is a 66 year old male with a past medical history of Coronary artery disease s/p recent stenting (mid circumflex, mid RCA, and distal RCA) on 11/18/21, Also states he had a PCI last week, known ischemic cardiomyopathy with EF (25- 30% per patient), Given a Lifevest, Peripheral artery disease s/p stenting recently in September 2021, and stenting to the right SFA, right common femoral artery, right iliac artery 11/2019, hypertension, dyslipidemia, former smoker. He follows with Dr. Hinojosa in [place]. We are asked to see in consultation for heart failure. Patient presented with acute onset of shortness of breath that began at 530am. He underwent 3 vessel PCI yesterday 11/18/21 and was discharged same day. He states he was doing well at home. However, overnight woke up severely short of breath, worsened this morning. He called EMS spO2 was in the 80s on room air and was brought to the emergency department for further evaluation. Patient placed on BIPAP and IV Lasix, BP improved. 11/20/2021 Patient seen and examined at bedside, no acute distress. He is feeling much better today. After further discussion with the patient he states that he has been told he has EF 25-30% and was given a LifeVest but has chosen not to wear it. He is breathing better. 5.9L urine output over the past 24 hours. Telemetry reviewed, sinus mechanism, occasional PVC, one episode 3 beat run NSVT Echocardiogram reveals an EF 25%, mainly apical hypokinesis which may be seen with Takotsubo cardiomyopathy, severely dilated left atrium, mitral regurgitation and mild tricuspid regurgitation, RVSP of 33 mmHg. Labs: Sodium 136, potassium 4.0, BUN 19, serum creatinine 1.1, troponin 1.4, 1.1 Patient is currently maintained on aspirin 81 mg daily, Plavix 75 mg daily, atorvastatin 40 mg daily, IV Lasix 40 mg Q8hr, Imdur 30mg daily, Lisinopril 2.5mg nightly PHYSICAL EXAMINATION Blood pressure CONSTITUTIONAL: Short of breath HEENT: Neck Supple. No JVD. CHEST EXAMINATION: Lungs are mild crackles in bases to auscultation. No chest wall tenderness is noted on palpation or with deep breathing. HEART EXAMINATION: Regular rate and rhythm. S1, S2 heard. Systolic ejection murmur No gallops or rub. ABDOMEN: Soft, nontender. Positive bowel sounds. EXTREMITIES: 2+ peripheral pulses, no lower extremity edema and no calf tenderness. NEUROLOGIC EXAMINATION: Patient is awake, alert and oriented x3. ASSESSMENT Acute on chronic heart failure with reduced ejection fraction, likely flash pulmonary edema Elevated troponin, likely related to recent stenting and heart failure Ischemic cardiomyopathy with EF 25% Coronary artery disease s/p recent stenting (mid circumflex, mid RCA, and distal RCA) on 11/18/21, Also states he had a PCI in end 10/2021 Peripheral artery disease s/p stenting recently in September 2021, and stenting to the right SFA, right common femoral artery, right iliac artery 11/2019 Hypertension Dyslipidemia Former smoker PLAN After further discussion with the patient he states that he has been told he has EF 25-30% and was given a LifeVest but has chosen not to wear it. We discussed repeat cardiac catherization with the patient, he has chosen to continue with medical therapy. We have discussed the risks, benefits and alternative therapies. Decrease IV Lasix 40mg BID, Transition to PO Tomorrow Increase Carvedilol 6.25mg BID Decrease lisinopril 2.5mg nightly Monitor I/Os, daily weights Monitor renal function and electrolytes Continue dual antiplatelet therapy with aspirin and Plavix Continue statin, Imdur From a cardiology perspective, if patient is stable likely discharge in the next 24 hours Recommend close follow up with his transportation assistant Dr. Hinojosa Discussed with patient indication for LifeVest and importance of continuously wearing it to reduce risk of sudden cardiac , patient states he is aware of the benefits and risks. Further recommendations based on clinical course Nurse practitioner note has been reviewed by physician. Signing provider agrees with the documented findings, assessment, and plan of care. Objective - Vital Signs Vital signs: Vital Signs Temp 97.5 F L 11/20/21 09:29 Pulse 72 11/20/21 11:53 Resp 17 11/20/21 09:29 BP 106/69 11/20/21 09:29 Pulse Ox 98 11/20/21 09:29 FiO2 40 11/19/21 11:00 Intake & Output 11/19/21 11/20/21 11/20/21 18:59 06:59 18:59 Output Total 3600 2360 Balance -3600 -2360 Weight 82.554 kg Output: Urine 3600 2360 Other: Voiding Method Bedside Commode Urinal Urinal Urinal # Voids 3 - Labs CBC & Chem 7: 11/20/21 06:18 11/20/21 06:18 Labs: Abnormal Lab Results - Last 24 Hours (Table) 11/19/21 11/20/21 11/20/21 Range/Units 13:15 06:18 06:18 RBC 3.70 L (4.30-5.90) m/uL Hgb 10.8 L (13.0-17.5) gm/dL Hct 33.3 L (39.0-53.0) % RDW 18.0 H (11.5-15.5) % Sodium 136 L (137-145) mmol/L Glucose 134 H (74-99) mg/dL POC Glucose (mg/dL) (75-99) mg/dL Troponin I 1.470 H* (0.000-0.034) ng/mL 11/20/21 11/20/21 Range/Units 06:18 06:24 RBC (4.30-5.90) m/uL Hgb (13.0-17.5) gm/dL Hct (39.0-53.0) % RDW (11.5-15.5) % Sodium (137-145) mmol/L Glucose (74-99) mg/dL POC Glucose (mg/dL) 151 H (75-99) mg/dL Troponin I 1.150 H* (0.000-0.034) ng/mL
[2021-11-20] MEDS: ALPRAZolam 0.25 MG TAB PO PRN ×2 (15:26→20:36)
[2021-11-20] MEDS: carvediloL 6.25 MG TAB PO SCH (17:05)
[2021-11-20] MEDS ORDERED: FUROSEMIDE 10 MG/ML 4 ML VIAL IV SCH (21:00)
[2021-11-21] MEDS: carvediloL 6.25 MG TAB PO SCH (05:37)
[2021-11-21] MEDS: GLIMEPIRIDE 1 MG TAB PO SCH (06:00)
[2021-11-21 06:09] LABS: Glucose,Whole Blood 172 mg/dL (75-99)
--- NOTE | 2021-11-21 07:03 | P.PN ---
Subjective Progress Note Date: 11/20/21 11/20/2021 Patient is a 66 year old male who was recently admitted with severe shortness of breath with CHF exacerbation and features of flash pulmonary and was started on Bipap with cardiology and pulmonary following. Patient respiratory status improved with IV lasix and is now room air and being closely monitored. Recommend to continue with IV lasix for another 24 hours and will possibly transition to oral lasix in the am. Patient is asking when he will be able to go home. Patient is afebrile and denies any chest pain or worsening shortness of breath. Encouraged increase activity as tolerated. Recommend repeat labs. Review of systems: Constitutional: No reports of fatigue, fever, or chills Cardiovascular: No reports of chest pain or palpitations Respiratory: reports of shortness of breath with significant improvement from yesterday. Exerts easily with activity GI: No reports of nausea, no reports of of vomiting : No reports of dysuria or retention Neurovascular: no reports of generalized weakness All medications have been reviewed Active Medications Albuterol/Ipratropium (Ipratropium-Albuterol 3 Ml Neb) 3 ml INHALATION RT-QID [facility] Last Admin: 11/20/21 20:52 Dose: Not Given Albuterol/Ipratropium (Ipratropium-Albuterol 3 Ml Neb) 3 ml INHALATION RT-QID PRN PRN Reason: Shortness Of Breath Or Wheezing Alprazolam (Alprazolam 0.25 Mg Tab) 0.25 mg PO TID PRN PRN Reason: Anxiety Last Admin: 11/20/21 20:36 Dose: 0.25 mg Aspirin (Aspirin 81 Mg) 81 mg PO DAILY [facility] Last Admin: 11/20/21 09:35 Dose: 81 mg Atorvastatin Calcium (Atorvastatin 40 Mg Tab) 40 mg PO DAILY [facility] Last Admin: 11/20/21 09:36 Dose: 40 mg Carvedilol (Carvedilol 6.25 Mg Tab) 6.25 mg PO BID-W/MEALS [facility] Last Admin: 11/21/21 05:37 Dose: 6.25 mg Clopidogrel Bisulfate (Clopidogrel 75 Mg Tab) 75 mg PO DAILY [facility] Last Admin: 11/20/21 09:36 Dose: 75 mg Enoxaparin Sodium (Enoxaparin 100 Mg/Ml Syringe) 90 mg SQ Q12HR [facility] Last Admin: 11/20/21 20:36 Dose: 90 mg Ferrous Sulfate (Ferrous Sulfate 325 Mg Tab) 325 mg PO DAILY [facility] Last Admin: 11/20/21 12:23 Dose: 325 mg Folic Acid (Folic Acid 1 Mg Tab) 1 mg PO DAILY [facility] Last Admin: 11/20/21 12:23 Dose: 1 mg Furosemide (Furosemide 10 Mg/Ml 4 Ml Vial) 40 mg IV Q12HR [facility] Stop: 11/21/21 08:00 Last Admin: 11/20/21 20:36 Dose: 40 mg Furosemide (Furosemide 40 Mg Tab) 40 mg PO DAILY [facility] Furosemide (Furosemide 20 Mg Tab) 20 mg PO DAILY@2100 [facility] Glimepiride (Glimepiride 1 Mg Tab) 1 mg PO AC-BID [facility] Last Admin: 11/21/21 06:00 Dose: 1 mg Isosorbide Mononitrate (Isosorbide Mononitrate Er 30 Mg Tab.Er.24h) 30 mg PO DAILY [facility] Last Admin: 11/20/21 09:35 Dose: 30 mg Lisinopril (Lisinopril 2.5 Mg Tab) 2.5 mg PO HS [facility] Metformin HCl (Metformin 500 Mg Tab) 1,000 mg PO BID-W/MEALS [facility] Last Admin: 11/21/21 05:37 Dose: 1,000 mg Naloxone HCl (Naloxone 0.4 Mg/Ml 1 Ml Vial) 0.2 mg IV Q2M PRN PRN Reason: Opioid Reversal PHYSICAL EXAMINATION: GENERAL: The patient is alert and oriented x4, Well developed, well nourished. HEENT: Pupils are round and equally reacting to light. EOMI. no scleral icterus. No conjunctival pallor. Normocephalic, atraumatic. No pharyngeal erythema. No t hyromegaly. CARDIOVASCULAR: S1 and S2 muffled PULMONARY: diminished breath sounds bilaterally with no some scattered crackles and rhonchi noted. ABDOMEN: soft. non-tender on exam. non-distended, normoactive bowel sounds. No palpable organomegaly. MUSCULOSKELETAL: No joint swelling or deformity. EXTREMITIES: No cyanosis, clubbing, or pedal edema. NEUROLOGICAL: Gross neurological examination did not reveal any focal deficits. SKIN: No rashes. Assessment: Congestive heart failure, acute exacerbation, with acute on chronic systolic dysfunction, ef 25% Acute hypoxic respiratory failure, on Bipap history of coronary artery disease with recent stenting Diabetes mellitus, type 2 History of nicotine dependence GI prophylaxis DVT prophylaxis Full code Plan: Recommend to continue with current medications and management with cardiology and pulmonary following. Recommend to continue with IV lasix for 24 more hours and possible transition to oral. Recommend repeat labs in the a.m. and will continue to monitor closely. Patient is off bipap and currently on room air. Encouraged increased activity as tolerated as patient still becomes short of breath with exertion. Due to multiple complex medical issues prognosis is guarded. Possible discharge in 24-48 hours. The impression and plan of care has been dictated by Sarah Guerra, nurse practitioner as directed. MD Jonny I have performed a history and examination and MDM of this patient, discussed the same with the dictator, and agree with the dictator's assessment and plan as written ,documented as a scribe. Based on total visit time, I have performed more than 50% of the visit. Any additional findings or plans will be noted. Objective - Vital Signs Vital signs: Vital Signs Temp 97.6 F 11/20/21 12:15 Pulse 62 11/20/21 12:15 Resp 17 11/20/21 12:15 BP 82/48 11/20/21 12:15 Pulse Ox 99 11/20/21 12:15 FiO2 40 11/19/21 11:00 Intake & Output 11/19/21 11/20/21 11/20/21 18:59 06:59 18:59 Output Total 3600 2360 Balance -3600 -2360 Weight 82.554 kg Output: Urine 3600 2360 Other: Voiding Method Bedside Commode Urinal Urinal Urinal # Voids 3 - Labs CBC & Chem 7: 11/20/21 06:18 11/20/21 06:18 Labs: Abnormal Lab Results - Last 24 Hours (Table) 11/19/21 11/20/21 11/20/21 Range/Units 13:15 06:18 06:18 RBC 3.70 L (4.30-5.90) m/uL Hgb 10.8 L (13.0-17.5) gm/dL Hct 33.3 L (39.0-53.0) % RDW 18.0 H (11.5-15.5) % Sodium 136 L (137-145) mmol/L Glucose 134 H (74-99) mg/dL POC Glucose (mg/dL) (75-99) mg/dL Troponin I 1.470 H* (0.000-0.034) ng/mL 11/20/21 11/20/21 Range/Units 06:18 06:24 RBC (4.30-5.90) m/uL Hgb (13.0-17.5) gm/dL Hct (39.0-53.0) % RDW (11.5-15.5) % Sodium (137-145) mmol/L Glucose (74-99) mg/dL POC Glucose (mg/dL) 151 H (75-99) mg/dL Troponin I 1.150 H* (0.000-0.034) ng/mL
[2021-11-21] MEDS: IPRATROPIUM-ALBUTEROL 3 ML NEB INHALATION SCH ×2 (07:18→11:08)
[2021-11-21] MEDS ORDERED: metFORMIN 500 MG TAB PO SCH (07:30)
[2021-11-21] MEDS ORDERED: FUROSEMIDE 40 MG TAB PO SCH (09:00)
[2021-11-21 09:56] LABS: Calcium 8.8 mg/dL (8.4-10.2)
[2021-11-21] MEDS: FERROUS SULFATE 325 MG TAB PO SCH (09:57)
[2021-11-21] MEDS: CLOPIDOGREL 75 MG TAB PO SCH (09:57)
[2021-11-21] MEDS: ASPIRIN 81 MG PO SCH (09:57)
[2021-11-21] MEDS: FOLIC ACID 1 MG TAB PO SCH (09:57)
[2021-11-21] MEDS: ATORVASTATIN 40 MG TAB PO SCH (09:57)
[2021-11-21] MEDS: ENOXAPARIN 100 MG/ML SYRINGE SQ SCH (09:58)
[2021-11-21] MEDS: ISOSORBIDE MONONITRATE ER 30 MG TAB.ER.24H PO SCH (10:02)
[2021-11-21 10:05] LABS: Potassium 4.2 mmol/L (3.5-5.1)
[2021-11-21 10:16] VITALS: BP 117/66; RESP 16; TEMP 97.5
--- NOTE | 2021-11-21 11:03 | P.PN ---
Subjective Progress Note Date: 11/21/21 This is a 66 year old male with a past medical history of Coronary artery disease s/p recent stenting (mid circumflex, mid RCA, and distal RCA) on 11/18/21, Also states he had a PCI last week, known ischemic cardiomyopathy with EF (25- 30% per patient), Given a Lifevest, Peripheral artery disease s/p stenting recently in September 2021, and stenting to the right SFA, right common femoral artery, right iliac artery 11/2019, hypertension, dyslipidemia, former smoker. He follows with Dr. Hinojosa in [place]. We are asked to see in consultation for heart failure. Patient presented with acute onset of shortness of breath that began at 530am. He underwent 3 vessel PCI yesterday 11/18/21 and was discharged same day. He states he was doing well at home. However, overnight woke up severely short of breath, worsened this morning. He called EMS spO2 was in the 80s on room air and was brought to the emergency department for further evaluation. Patient placed on BIPAP and IV Lasix, BP improved. 11/20/2021 Patient seen and examined at bedside, no acute distress. He is feeling much better today. After further discussion with the patient he states that he has been told he has EF 25-30% and was given a LifeVest but has chosen not to wear it. He is breathing better. 5.9L urine output over the past 24 hours. Telemetry reviewed, sinus mechanism, occasional PVC, one episode 3 beat run NSVT Echocardiogram reveals an EF 25%, mainly apical hypokinesis which may be seen with Takotsubo cardiomyopathy, severely dilated left atrium, mitral regurgitation and mild tricuspid regurgitation, RVSP of 33 mmHg. Labs: Sodium 136, potassium 4.0, BUN 19, serum creatinine 1.1, troponin 1.4, 1.1 Patient is currently maintained on aspirin 81 mg daily, Plavix 75 mg daily, atorvastatin 40 mg daily, IV Lasix 40 mg Q8hr, Imdur 30mg daily, Lisinopril 2.5mg nightly 11/21/2021 Patient examined this point the bedside. Patient denies chest pain or pressure. He denies shortness of breath. He has been transitioned to oral Lasix. Vital signs are stable. Patient is hoping to be discharged home today. PHYSICAL EXAMINATION Blood pressure CONSTITUTIONAL: Short of breath HEENT: Neck Supple. No JVD. CHEST EXAMINATION: Lungs diminished to auscultation. No chest wall tenderness is noted on palpation or with deep breathing. HEART EXAMINATION: Regular rate and rhythm. S1, S2 heard. Systolic ejection murmur No gallops or rub. ABDOMEN: Soft, nontender. Positive bowel sounds. EXTREMITIES: 2+ peripheral pulses, no lower extremity edema and no calf tenderness. NEUROLOGIC EXAMINATION: Patient is awake, alert and oriented x3. ASSESSMENT Acute on chronic heart failure with reduced ejection fraction, likely flash pulmonary edema Elevated troponin, likely related to recent stenting and heart failure Ischemic cardiomyopathy with EF 25% Coronary artery disease s/p recent stenting (mid circumflex, mid RCA, and distal RCA) on 11/18/21, Also states he had a PCI in end 10/2021 Peripheral artery disease s/p stenting recently in September 2021, and stenting to the right SFA, right common femoral artery, right iliac artery 11/2019 Hypertension Dyslipidemia Former smoker PLAN Continue current cardiac medications Discussed importance of patient wearing his LifeVest at home. Patient agreeable to wearing his LifeVest at home Patient may be discharged home today from a cardiac standpoint He is to follow up with his primary bulbs farmworker, Dr. Hinojosa Nurse practitioner note has been reviewed by physician. Signing provider agrees with the documented findings, assessment, and plan of care. Objective - Vital Signs Vital signs: Vital Signs Temp 97.5 F L 11/21/21 09:55 Pulse 67 11/21/21 09:55 Resp 16 11/21/21 09:55 BP 117/66 11/21/21 09:55 Pulse Ox 99 11/21/21 09:55 FiO2 21 11/20/21 16:27 Intake & Output 11/20/21 11/21/21 11/21/21 18:59 06:59 18:59 Intake Total 480 Output Total 2039 Balance -2039 480 Weight 85.5 kg 87.1 kg Intake: Oral 480 Output: Urine 2039 Other: Voiding Method Urinal Urinal - Labs CBC & Chem 7: 11/20/21 06:18 11/21/21 09:11 Labs: Abnormal Lab Results - Last 24 Hours (Table) 11/20/21 11/21/21 11/21/21 Range/Units 06:18 06:07 09:11 Sodium 136 L (137-145) mmol/L BUN 22 H (9-20) mg/dL Glucose 183 H (74-99) mg/dL POC Glucose (mg/dL) 172 H (75-99) mg/dL Troponin I 1.150 H* (0.000-0.034) ng/mL
[2021-11-21 11:21] VITALS: PULSE 77
[2021-11-21 11:24] LABS: Glucose,Whole Blood 147 mg/dL (75-99)
--- NOTE | 2021-11-21 11:28 | P.PN ---
Subjective Progress Note Date: 11/21/21 Principal diagnosis: Shortness of breath, CHF. 66-year-old male patient of Dr. Radford, with past medical history of coronary artery disease with previous bypass grafting, diabetes mellitus type 2, peripheral vascular disease with previous intervention, [id number] smoking history, hypertension, hyperlipidemia, who was discharged from [facility] in [place], [place] yesterday on 11/18/2021. Patient has been increasingly short of breath, and noted that his oxygen saturations were low in the 80s at home. Patient underwent coronary artery stenting 3 this week, and one stent was placed last week. In addition patient stated that he had spent 20 days in the hospital for recent history of GI bleeding where he required transfusion with 12 units of packed red blood cells. This morning he presented to the emergency department on 11/19/2021 with complaints of severe shortness of breath, patient could not get his breath and, when EMS arrived his pulse ox was in the 80s. He was having a mild nonproductive cough, denied any fevers, no chest pain, or discomfort, denies any lower extremity swelling, no history of blood clots. Denies any history of heart failure. Chest x-ray showed cardiomegaly with perihilar and diffuse interstitial opacities. Patient was placed on 100% nonrebreather show and subsequently required BiPAP support. He was tachycardic with a rate of 121 but sinus mechanism, respiratory rate was in the 40s, she was in severe respiratory distress. Was given a dose of IV Lasix 40 mg 1, and was started on maintenance dose of Lasix 40 mg every 8 hours, has produced 2.7 L and urine output, he is breathing much easier, currently on 4 L of oxygen with pulse ox of 99%. He was seen by cardiology, echocardiogram has been completed showing left ventricular ejection fraction of 25%, and mainly apical hypokinesis with basal sparing that could be seen with Dr. Thorne cardiomyopathy. There was severely increased left atrial volume, moderate mitral regurgitation, mild tricuspid regurgitation, right ventricular systolic pressure was 33 mmHg. currently breathing much comfortably. Able to speak in full sentences, denies any chest pain. Progress note dated 11/20/2021. This is a 66-year-old male, who sees a local family doctor, but her desktop operator, in [place], [place], who presented to the emergency department with shortness of breath, and flash pulmonary edema. The patient does have a history of CAD, significant tobacco use, hypertension, hyperlipidemia, and recent catheterization with stent placements. Currently, the patient's doing much better. He's feeling much better. His breathing is much improved. He is currently on 4 L nasal cannula. Saturations are excellent, and his vital signs are stable. White count 6.9, hemoglobin 10.8, hematocrit 33.3, and platelet count 262,000. Sodium 136, potassium 4, chlorides 102, CO2 26, BUN 19, and creatinine 1.12. Troponins were 0.594, 1.470, and 1.150. N-terminal proBNP was 3850. Chest x-ray showed a pattern of pulmonary edema. Today's chest x-ray, is nearly normal. Progress note dated 11/21/2021. The patient is seen and examined. The patient appears be doing much better. His family doctors here in [facility], but he sees a desktop operator in [place], [place]. The patient recently had a catheterization, and 3 stents placed. He presented the next day to the hospital with a episode of acute pulmonary edema. Currently, he's on room air. He's not receiving any IV fluids. Lab data today includes a sodium 136, potassium 4.2, chlorides 101, CO2 27, BUN 22, and creatinine 1.08. No new chest x-ray today to review. Objective - Vital Signs Vital signs: Vital Signs Temp 97.5 F L 11/21/21 09:55 Pulse 77 11/21/21 11:21 Resp 16 11/21/21 09:55 BP 117/66 11/21/21 09:55 Pulse Ox 99 11/21/21 09:55 FiO2 21 11/20/21 16:27 Intake & Output 11/20/21 11/21/21 11/21/21 18:59 06:59 18:59 Intake Total 480 Output Total 2039 Balance -2039 480 Weight 85.5 kg 87.1 kg Intake: Oral 480 Output: Urine 2039 Other: Voiding Method Urinal Urinal Urinal - Exam No acute distress, oriented 3. Currently on room air. HEENT examination is grossly unremarkable. Neck supple. Full range of motion. No adenopathy thyromegaly or neck vein distention. Cardiovascular examination reveals regular rhythm rate. S1-S2 normal. No S3 or S4. No discernible murmur noted. Heart rate is 77 bpm. Lungs reveal mostly clear breath sounds. Minimal scattered rhonchi. No wheezes. No crackles. Saturations are 99%. Breath sounds are equal bilaterally. Abdomen soft bowel sounds are heard. No masses or tenderness. Extremities are intact. No cyanosis clubbing or edema. Skin is without rash or lesion. Neurologic examination is brief but nonfocal. - Labs CBC & Chem 7: 11/20/21 06:18 11/21/21 09:11 Labs: Abnormal Lab Results - Last 24 Hours (Table) 11/20/21 11/21/21 11/21/21 Range/Units 06:18 06:07 09:11 Sodium 136 L (137-145) mmol/L BUN 22 H (9-20) mg/dL Glucose 183 H (74-99) mg/dL POC Glucose (mg/dL) 172 H (75-99) mg/dL Troponin I 1.150 H* (0.000-0.034) ng/mL 11/21/21 Range/Units 11:23 Sodium (137-145) mmol/L BUN (9-20) mg/dL Glucose (74-99) mg/dL POC Glucose (mg/dL) 147 H (75-99) mg/dL Troponin I (0.000-0.034) ng/mL Assessment and Plan Assessment: Acute pulmonary edema, likely related to acute systolic dysfunction and CHF, with an ejection fraction of 25% and apical hypokinesis. Possible Takotsubo's cardiomyopathy. CAD, with recent stenting 3. Peripheral vascular occlusive disease. History of [id number] tobacco use. Elevated troponin, rule out non-ST segment elevation myocardial infarction. Type 2 diabetes mellitus. History of hypertension. History of hyperlipidemia. Plan: Plan dated 11/20/2021. The patient looks clinically much better today than he did yesterday. His chest x-ray today is nearly normal. The patient is currently nothing by mouth. Apparently according to the nurse, cardiology is considering a heart catheterization. The patient's desktop operator is a [place], [place]. He may wait and the catheterization done elsewhere. From the pulmonary standpoint, the patient's doing well. He remains on 4 L nasal cannula. No additional recommendations are made. He can use BiPAP intermittently if he wishes. Plan dated 11/21/2021. The patient may be discharged home today. He'll follow-up with his own desktop operator in [place], [place]. His family doctor is here in town. The patient is not requiring any supplemental oxygen. The patient is not on any IV fluids. Additional recommendations and suggestions are forthcoming. Prognosis is guarded. No need to continue to follow this patient, from the pulmonary standpoint. Time with Patient: Less than 30
--- NOTE | 2021-11-21 15:27 | DS ---
DISCHARGE SUMMARY FINAL DIAGNOSIS: 1. Congestive heart failure, acute exacerbation, with acute on chronic systolic dysfunction, ejection fraction 25%. 2. Acute hypoxic respiratory failure, status post BiPAP. 3. History of coronary artery disease, recent stenting. 4. Diabetes mellitus, type 2. 5. Multiple medical issues. HISTORY OF PRESENT ILLNESS: This 66-year-old gentleman with a past medical history of multiple medical problems had a recent stent. The patient presented with CHF, acute exacerbation, was treated with IV Lasix and the rest of the medication. Patient improved significantly. On exam, vitals are stable. CARDIOVASCULAR: S1, S2 muffled. ABDOMEN: Soft. NERVOUS SYSTEM: No focal deficit. The patient was seen by Cardiology and Pulmonology. Discharged home with Lasix. Please refer to the discharge reconciliation medication list for list of medications. Otherwise, continue the rest of the medications and ad-eqrvy-tyuo diet. Follow with the patient's cardiology doctor, Dr. Hinojosa, as well as primary physician, Dr. Radford. MMKIM / CLARISSEN: [id number] /
[2021-11-21] MEDS ORDERED: FUROSEMIDE 20 MG TAB PO SCH (21:00)
== END 2021-11-21 14:46 | disposition home health service (06) ==
LOC: EC 08:02 → INTOOBSV 10:06 → 3SCARD 10:06 → UNDODISIN 11-21 14:46
PROVIDERS: ADMIT Hospitalist; ATTEND Hospitalist
PROC: 5A09357 Assistance with Respiratory Ventilation, Less than 24 Consecutive Hours, Continuous Positive Airway Pressure (ICD-10-PCS; principal; 2021-11-19)
DX: I13.0 Hypertensive heart and chronic kidney disease with heart failure and stage 1 through stage 4 chronic kidney disease, or unspecified chronic kidney disease (principal); I50.23 Acute on chronic systolic (congestive) heart failure; J96.01 Acute respiratory failure with hypoxia; I16.0 Hypertensive urgency; J81.0 Acute pulmonary edema; N18.9 Chronic kidney disease, unspecified; I25.5 Ischemic cardiomyopathy; E78.5 Hyperlipidemia, unspecified; I47.2 Ventricular tachycardia; E11.22 Type 2 diabetes mellitus with diabetic chronic kidney disease; I08.1 Rheumatic disorders of both mitral and tricuspid valves; I25.10 Atherosclerotic heart disease of native coronary artery without angina pectoris; E11.51 Type 2 diabetes mellitus with diabetic peripheral angiopathy without gangrene; D72.829 Elevated white blood cell count, unspecified; R79.89 Other specified abnormal findings of blood chemistry; I25.2 Old myocardial infarction; M54.2 Cervicalgia; Z20.822 Contact with and (suspected) exposure to COVID-19; M25.511 Pain in right shoulder; Z79.02 Long term (current) use of antithrombotics/antiplatelets; Z79.82 Long term (current) use of aspirin; Z79.84 Long term (current) use of oral hypoglycemic drugs; Z79.899 Other long term (current) drug therapy; Z91.048 Other nonmedicinal substance allergy status; Z95.828 Presence of other vascular implants and grafts; Z95.1 Presence of aortocoronary bypass graft; Z95.5 Presence of coronary angioplasty implant and graft; Z87.891 Personal history of nicotine dependence; Z87.19 Personal history of other diseases of the digestive system; Z86.19 Personal history of other infectious and parasitic diseases; Z98.890 Other specified postprocedural states; Z80.42 Family history of malignant neoplasm of prostate
CPT/HCPCS: 96376 ×2; 96372 ×4; 96374; 99291; 36415; 94660; 94640 ×4; 94760; 93005; 85379; 83880; 80053 ×2; 80048; 83605; 83735; 84484 ×2; 85025 ×2; 85610; 85730; 87502; 87635; 71045 ×2; 71275; G0378 ×3; C8929; J1940 ×2; J1650 ×2; Q9950; Q9967; J1644 ×2; 93306

== ENCOUNTER → 2022-04-02 | Outpatient (CLI) | payer MEDICARE ==
--- NOTE | 2022-04-02 14:55 | NM ---
EXAMINATION TYPE: NM rest [facility]a cardiac DATE OF EXAM: 04/02/2022 COMPARISON: NONE HISTORY: 66-year-old male I 5 0.20. Previous outside MUGA scan EF measured at 28% per tech history. Technique: Following administration of 3ml PYP 25.7 mCi Tc 99m Sodium Pertechnate. Images 10 minutes post injection. Gated equilibrium images were acquired in the anterior and left anterior oblique (MAURITANIAN) projections. Computer estimated left ventricular ejection fraction (LVEF) was calculated from the total counts in the end-systolic and end-diastolic left ventricular regions with background correction. FINDINGS: Morphology of the left ventricle is grossly normal with left ventricular ejection fraction calculated at 23.1% (Normal 50-80%). Right ventricle Morphology: No gross abnormal abnormality. IMPRESSION: Markedly diminished LVEF measured at 23.1%. Clinically correlate.
== END | disposition home or self-care (01) ==
LOC: RADNMMAIN 12:38
PROVIDERS: ATTEND Internal Medicine Interventional Cardiology
DX: I50.20 Unspecified systolic (congestive) heart failure (principal)
CPT/HCPCS: 78472; A9560

== ENCOUNTER → 2022-05-18 | Outpatient (CLI) | payer MEDICARE ==
--- NOTE | 2022-05-19 08:07 | US ---
EXAMINATION TYPE: US kidneys/renal and bladder DATE OF EXAM: 05/18/2022 COMPARISON: NONE CLINICAL HISTORY: R31.9 HEMATURIA, UNSPECIFIED. Hematuria EXAM MEASUREMENTS: Right Kidney: 10.5 x 5.1 x 3.9 cm Left Kidney: 11.7 x 4.7 x 4.7 cm Right Kidney: No hydronephrosis or masses seen Left Kidney: Hypoechoic area seen upper pole 4.8 x 4.9 x 4.8 cm. Bladder: Hypoechoic area seen 1.8 x 2.1 x 2.7 cm. Bilateral Jets seen: Left only. There is no evidence for hydronephrosis at this point in time. No nephrolithiasis is seen. IMPRESSION: Bilateral simple appearing renal cysts.
== END | disposition home or self-care (01) ==
LOC: RADUSWWP 16:05
PROVIDERS: ATTEND Internal Medicine
DX: N28.1 Cyst of kidney, acquired (principal); R31.9 Hematuria, unspecified
CPT/HCPCS: 76770

== ENCOUNTER → 2022-07-08 | Outpatient (CLI) | payer MEDICARE ==
[2022-07-08 21:13] LABS: Basophils # (A) 0.03 X 10*3/uL (0.00-0.10); Basophils % (A) 0.3 %; Eosinophils # (A) 0.27 X 10*3/uL (0.04-0.35); Eosinophils % (A) 2.5 %; HCT 37.8 % (39.6-50.0); Immature Grans, Automated 0.5 %; Lymphocytes # (A) 2.44 X 10*3/uL (0.90-5.00); Lymphocytes % (A) 22.2 %; MCH 29.3 pg (27.0-32.0); MCHC 31.7 g/dL (32.0-37.0); MCV 92.2 fL (80.0-97.0); Mean Platelet Volume 10.2 fL (9.5-12.2); Monocytes # (A) 1.04 X 10*3/uL (0.20-1.00); Monocytes % (A) 9.5 %; NRBC Per 100 WBC 0 /100 WBCS (0.0-0.0); Neutrophils # (A) 7.15 X 10*3/uL (1.80-7.70); Platelet Count 264 X 10*3/uL (140-440); RDW 14.6 % (11.5-14.5); WBC 10.98 X 10*3/uL (4.50-10.00)
[2022-07-09 00:32] LABS: African American GFR (CKD) 67.8 (60.0-200.0); Albumin 4.3 g/dL (3.8-4.9); Albumin/Globulin Ratio 1.42 (1.60-3.17); Anion Gap 13.1 mmol/L (10.00-18.00); BUN/Creat Ratio 14.25 Ratio (12.00-20.00); Blood Urea Nitrogen 18.1 mg/dL (9.0-27.0); Calcium 9.5 mg/dL (8.7-10.3); Carbon Dioxide 23.5 mmol/L (20.0-27.5); Globulin 3.1 g/dL (1.6-3.3); Non-African American GFR(CKD) 58.5 (60.0-200.0); Potassium 4.3 mmol/L (3.5-5.5); Total Bilirubin 0.3 mg/dL (0.30-1.20); Total Protein 7.4 g/dL (6.2-8.2)
== END | disposition home or self-care (01) ==
LOC: LABWHC1 13:17
PROVIDERS: ATTEND Internal Medicine Interventional Cardiology
DX: I10 Essential (primary) hypertension (principal)
CPT/HCPCS: 36415; 80053; 85025

== ENCOUNTER → 2022-09-14 | Outpatient (CLI) | payer MEDICARE ==
[2022-09-14 12:41] LABS: Basophils % (A) 0 %; Eosinophils # (A) 0.3 k/uL (0-0.7); Eosinophils % (A) 3 %; HCT 36.1 % (39.0-53.0); Lymphocytes # (A) 1.7 k/uL (1.0-4.8); Lymphocytes % (A) 22 %; MCH 28.7 pg (25.0-35.0); MCHC 33.2 g/dL (31.0-37.0); MCV 86.3 fL (80.0-100.0); Mean Platelet Volume 7.8; Monocytes # (A) 0.6 k/uL (0-1.0); Monocytes % (A) 7 %; Neutrophils % (A) 64 %; Platelet Count 211 k/uL (150-450); RBC 4.18 m/uL (4.30-5.90); RDW 15.3 % (11.5-15.5); WBC 7.7 k/uL (3.8-10.6)
[2022-09-14 12:53] LABS: Partial Thromboplastin Time 23.3 sec (22.0-30.0); Prothrombin Time 10.5 sec (9.0-12.0)
[2022-09-14 12:57] LABS: ALT 22 U/L (4-49); AST 20 U/L (17-59); African American GFR (CKD) 74 (>60 ml/min/1.73 sqM); Albumin 4.3 g/dL (3.5-5.0); Albumin/Globulin Ratio 1.3; Alkaline Phosphatase 74 U/L (38-126); Anion Gap 10 mmol/L; Blood Urea Nitrogen 18 mg/dL (9-20); Calcium 9.3 mg/dL (8.4-10.2); Carbon Dioxide 28 mmol/L (22-30); Chloride 98 mmol/L (98-107); Globulin 3.2 g/dL; Glucose 132 mg/dL (74-99); Non-African American GFR(CKD) 64 (>60 ml/min/1.73 sqM); Potassium 4.8 mmol/L (3.5-5.1); Sodium 136 mmol/L (137-145); Total Bilirubin 0.7 mg/dL (0.2-1.3); Total Protein 7.5 g/dL (6.3-8.2)
== END | disposition home or self-care (01) ==
LOC: LABWHC1 11:42
PROVIDERS: ATTEND Internal Medicine Interventional Cardiology
DX: I25.10 Atherosclerotic heart disease of native coronary artery without angina pectoris (principal); D68.318 Other hemorrhagic disorder due to intrinsic circulating anticoagulants, antibodies, or inhibitors; I73.9 Peripheral vascular disease, unspecified; E78.5 Hyperlipidemia, unspecified
CPT/HCPCS: 36415; 80053; 85025; 85610; 85730

== ENCOUNTER 2022-12-22 16:25 | Emergency (ER) | payer OTHER, MEDICARE ==
[2022-12-22 17:01] VITALS: RESP 16
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
[2022-12-22] MEDS ORDERED: KETOROLAC 15 MG/ML 1 ML VIAL IM STA (19:39)
[2022-12-22] MEDS ORDERED: Acetaminophen-Codeine 300-30mg TAB PO STA (19:39)
[2022-12-22] MEDS ORDERED: IBUPROFEN 600 MG STARTER PACK 4 TAB BTL PO STA (19:40)
[2022-12-22] MEDS ORDERED: ACET/COD 300 MG/30 MG STARTER PACK 6 TAB BTL PO STA (19:40)
[2022-12-22] MEDS ORDERED: diazePAM 2 MG TAB PO STA (20:00)
[2022-12-22 20:12] VITALS: BP 130/87; PULSE 83; TEMP 98.6
== END 2022-12-22 20:12 | disposition home or self-care (01) ==
LOC: EC 16:25
DX: S20.219A Contusion of unspecified front wall of thorax, initial encounter (principal); S16.1XXA Strain of muscle, fascia and tendon at neck level, initial encounter; S93.401A Sprain of unspecified ligament of right ankle, initial encounter; I25.10 Atherosclerotic heart disease of native coronary artery without angina pectoris; E11.9 Type 2 diabetes mellitus without complications; Z87.891 Personal history of nicotine dependence; Z88.8 Allergy status to other drugs, medicaments and biological substances; Z79.84 Long term (current) use of oral hypoglycemic drugs; Z79.82 Long term (current) use of aspirin; Z79.02 Long term (current) use of antithrombotics/antiplatelets; V49.40XA Driver injured in collision with unspecified motor vehicles in traffic accident, initial encounter
CPT/HCPCS: 72050; 73610; 71046; 99284; 96372; J1885

== ENCOUNTER 2023-01-02 20:14 | Inpatient (IN) | payer MEDICARE ==
[2023-01-02] MEDS ORDERED: FUROSEMIDE 10 MG/ML 4 ML VIAL IV STA (20:54)
[2023-01-02 21:18] LABS: Anisocytosis Slight; Basophils % (A) 0 %; Eosinophils # (A) 0.3 k/uL (0-0.7); Eosinophils % (A) 3 %; HCT 32.8 % (39.0-53.0); HGB 10.7 gm/dL (13.0-17.5); Hypochromasia Slight; Lymphocytes # (A) 1.3 k/uL (1.0-4.8); Lymphocytes % (A) 13 %; MCHC 32.5 g/dL (31.0-37.0); MCV 89.2 fL (80.0-100.0); Mean Platelet Volume 8.3; Monocytes # (A) 0.5 k/uL (0-1.0); Monocytes % (A) 5 %; Neutrophils # (A) 7.8 k/uL (1.3-7.7); Neutrophils % (A) 78 %; Platelet Count 250 k/uL (150-450); RBC 3.68 m/uL (4.30-5.90); RDW 17.7 % (11.5-15.5); WBC 10.1 k/uL (3.8-10.6)
[2023-01-02 21:22] LABS: Partial Thromboplastin Time 22.9 sec (22.0-30.0)
[2023-01-02 21:25] LABS: ALT 30 U/L (4-49); AST 28 U/L (17-59); African American GFR (CKD) 60 (>60 ml/min/1.73 sqM); Alkaline Phosphatase 73 U/L (38-126); Anion Gap 12 mmol/L; Blood Urea Nitrogen 22 mg/dL (9-20); Calcium 8.6 mg/dL (8.4-10.2); Carbon Dioxide 23 mmol/L (22-30); Chloride 100 mmol/L (98-107); Glucose 164 mg/dL (74-99); Magnesium 1.3 mg/dL (1.6-2.3); Non-African American GFR(CKD) 52 (>60 ml/min/1.73 sqM); Potassium 3.9 mmol/L (3.5-5.1); Sodium 135 mmol/L (137-145); Total Bilirubin 0.9 mg/dL (0.2-1.3); Total Protein 6.8 g/dL (6.3-8.2)
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
[2023-01-02] MEDS ORDERED: LORazepam 2 MG/ML INJ IV STA ×2 (21:54→22:02)
[2023-01-02] MEDS ORDERED: NALOXONE 0.4 MG/ML 1 ML VIAL IV PRN (23:05)
--- NOTE | 2023-01-02 23:05 | ED ---
General Adult HPI - General Chief complaint: Shortness of Breath Stated complaint: [place] Time Seen by Provider: 01/02/23 20:34 Source: patient Mode of arrival: ambulatory Limitations: no limitations - History of Present Illness Initial comments: This is a 67-year-old male with extensive past medical history including congestive heart failure, defibrillator placed, 4 previous cardiac stents and peripheral vascular disease presented to the emergency department for increasing shortness of breath. The patient stated over the last several days he has had increasing shortness of [place] "terrible time and shriveled to breathe [place] The patient stated he woke up several times to the night coughing and unable to catch his breath. The patient stated it feels as if his congestive heart failure is worsening. The patient was having mild soreness of breath while I asked him questions but stated that he did not have any lightheadedness or dizziness or chest pain noted. The patient denied any nausea or vomiting. - Related Data Home Medications Medication Instructions Recorded Confirmed Atorvastatin [Lipitor] 40 mg PO DAILY 10/19/21 11/19/21 Clopidogrel [Plavix] 75 mg PO DAILY 10/19/21 11/19/21 Ferrous Sulfate [Iron (65 MG 325 mg PO DAILY 10/19/21 11/19/21 Elemental)] Glimepiride [Amaryl] 1 mg PO AC-BID 10/19/21 11/19/21 metFORMIN HCL [Glucophage] 1,000 mg PO DIRECTED 10/19/21 11/19/21 Aspirin 81 mg PO DAILY 11/19/21 11/19/21 Folic Acid 1 mg PO DAILY 11/19/21 11/19/21 Isosorbide Mononitrate ER [Imdur] 30 mg PO DAILY 11/19/21 11/19/21 Nitroglycerin Sl Tabs [Nitrostat] 0.4 mg SUBLINGUAL Q5M PRN 11/19/21 11/19/21 carvediloL [Coreg] 3.125 mg PO BID 11/19/21 11/19/21 lisinopriL [Zestril] 5 mg PO DAILY 11/19/21 11/19/21 Previous Rx's Medication Instructions Recorded Furosemide [Lasix] 40 mg PO DAILY #30 tab 11/21/21 Allergies Allergy/AdvReac Type Severity Reaction Status Date / Time adhesive tape Allergy Unknown Rash/Hives Verified 12/22/22 16:57 Review of Systems ROS Statement: Those systems with pertinent positive or pertinent negative responses have been documented in the HPI. ROS Other: All systems not noted in ROS Statement are negative. Past Medical History Past Medical History: Coronary Artery Disease (CAD), Heart Failure, Diabetes Mellitus Additional Past Medical History / Comment(s): STATES TYPE 2 DIABETES-NO LONGER NEEDS MEDICATION DUE TO WT LOSS-BUT TAKES IT TO HELP WITH CONTINUED WT LOSS. , PAST HX OF STAPH INFECTION RIGHT SHOULDER WITH PICC LINE ., STATES PAIN RIGHT SHOULDER AND NECK. History of Any Multi-Drug Resistant Organisms: None Reported Past Surgical History: Heart Catheterization With Stent, Orthopedic Surgery Additional Past Surgical History / Comment(s): RIGHT SHOULDER X8., LEFT SHOULDER X2., PICC LINE. internal defibulator Past Anesthesia/Blood Transfusion Reactions: No Reported Reaction Date of Last Stent Placement:: 11/18/21 Past Psychological History: No Psychological Hx Reported Smoking Status: Former smoker Past Alcohol Use History: Occasional Past Drug Use History: None Reported - Past Family History Father Family Medical History: Cancer Additional Family Medical History / Comment(s): PROSTATE CANCER General Exam Limitations: no limitations General appearance: alert, in no apparent distress Head exam: Present: atraumatic, normocephalic, normal inspection Eye exam: Present: normal appearance, PERRL Pupils: Present: normal accommodation ENT exam: Present: normal exam, normal oropharynx, mucous membranes moist Neck exam: Present: normal inspection, full ROM Respiratory exam: Present: respiratory distress (Mild respiratory distress), other (Mild crackles heard bilaterally) Cardiovascular Exam: Present: regular rate, normal rhythm, normal heart sounds GI/Abdominal exam: Present: soft, normal bowel sounds Extremities exam: Present: normal inspection, full ROM Back exam: Present: normal inspection, full ROM Neurological exam: Present: alert, oriented X3, CN II-XII intact Psychiatric exam: Present: normal affect, normal mood Skin exam: Present: warm, dry Course Vital Signs 01/02/23 01/02/23 01/02/23 20:16 21:07 22:30 Temperature 98 F Pulse Rate 102 H 91 85 Respiratory 26 H 20 20 Rate Blood Pressure 123/83 98/72 94/67 O2 Sat by Pulse 97 97 98 Oximetry EKG Findings - EKG Comments: EKG Findings:: An EKG was obtained and was interpreted by myself showing a rate of 89, MD interval 187, QRS duration of 106 and QTC of 426. This EKG showed a electronically ventricularly paced rhythm with no ST segment elevation or depression noted. Medical Decision Making - Medical Decision Making Was pt. sent in by a medical professional or institution (DAVINA Ozuna, [employer]JUSTER, urgent care, hospital, or jail...) When possible be specific @ -No Did you speak to anyone other than the patient for history (EMS, parent, family, police, friend...)? What history was obtained from this source @ -No Did you review nursing and triage notes (agree or disagree)? Why? @ -I reviewed and agree with nursing and triage notes Were old charts reviewed (outside hosp., previous admission, EMS record, old EKG, old radiological studies, urgent care reports/EKG's, jail records)? Report findings @ -No old charts were reviewed Differential Diagnosis (chest pain, altered mental status, abdominal pain women, abdominal pain men, vaginal bleeding, weakness, fever, dyspnea, syncope, headache, dizziness, GI bleed, back pain, seizure, CVA, palpatations, mental health)? @ -Congestive heart failure exacerbation, ACS, pneumonia, pneumothorax EKG interpreted by me (3pts min.). @ -As above X-rays interpreted by me (1pt min.). @ -Chest x-ray was obtained and was interpreted by myself showing cardiomegaly and vascular congestion CT interpreted by me (1pt min.). @ -None done U/S interpreted by me (1pt. min.). @ -None done What testing was considered but not performed or refused? (CT, X-rays, U/S, labs)? Why? @ -None What meds were considered but not given or refused? Why? @ -None Did you discuss the management of the patient with other professionals (professionals i.e. DAVINA Ozuna, [employer], lab, RT, psych nurse, social worker school, cabinetmaker supervisor, teacher, information security officer, disease case manager)? Give summary @ -Admitting team was contacted regarding admission. Was smoking cessation discussed for >3mins.? @ -No Was critical care preformed (if so, how long)? @ -No Were there social determinants of health that impacted care today? How? (Homelessness, low income, unemployed, alcoholism, drug addiction, transportation, low edu. Level, literacy, decrease access to med. care, [facility] [facility], rehab)? @ -No Was there de-escalation of care discussed even if they declined (Discuss DNR or withdrawal of care, Hospice)? DNR status @ -No What co-morbidities impacted this encounter? (DM, HTN, Smoking, COPD, CAD, Cancer, CVA, ARF, Chemo, Hep., AIDS, mental health diagnosis, sleep apnea, morbid obesity)? @ -Extensive cardiac history including 4 previous stents, CHF and definitive placement as well as peripheral vascular disease Was patient admitted / discharged? Hospital course, mention meds given and route, prescriptions, significant lab abnormalities, going to OR and other pertinent info. @ -The patient was seen and evaluated emergency department. Physical exam, the patient was resting in bed without any acute distress. Vital signs admission were stable however the patient did have tachypnea and mild hypoxia secondary to patient's respiratory status. Due to the patient's symptoms, laboratory workup was obtained and showed mild elevation of the proBNP. The patient did have elevation of his troponin but on further chart review demonstrated a chronic elevation of troponin. The patient was given a dose of Lasix in the emergency department and stated that he felt some mild improvement and did not request BiPAP at this time. The patient continued to remain stable and did receive 1 mg of Ativan as the patient did have increasing anxiety secondary to his shortness of breath. Due to the patient's congestive heart failure exacerbation, the patient will be placed in observation for continued diuresis. The patient was told this plan and was agreeable. The patient was placed in observation in stable condition. Undiagnosed new problem with uncertain prognosis? @ -No Drug Therapy requiring intensive monitoring for toxicity (Heparin, Nitro, Insulin, Cardizem)? @ -No Were any procedures done? @ -No Diagnosis/symptom? @ -Congestive heart failure exacerbation. Acute, or Chronic, or Acute on Chronic? @ -Acute on chronic Uncomplicated (without systemic symptoms) or Complicated (systemic symptoms)? @ -Complicated Side effects of treatment? @ -No Exacerbation, Progression, or Severe Exacerbation? @ -No Poses a threat to life or bodily function? How? (Chest pain, USA, DC, pneumonia, PE, COPD, DKA, ARF, appy, cholecystitis, CVA, Diverticulitis, Homicidal, Suicidal, threat to staff... and all critical care pts) @ -Yes, continued exacerbation of CHF can lead to increasing fluid retention, worsening respiration status and possible . - Lab Data Result diagrams: 01/02/23 20:55 01/02/23 20:55 Lab Results 01/02/23 01/02/23 01/02/23 Range/Units 20:55 20:55 20:55 WBC 10.1 (3.8-10.6) k/uL RBC 3.68 L (4.30-5.90) m/uL Hgb 10.7 L (13.0-17.5) gm/dL Hct 32.8 L (39.0-53.0) % MCV 89.2 (80.0-100.0) fL MCH 29.0 (25.0-35.0) pg MCHC 32.5 (31.0-37.0) g/dL RDW 17.7 H (11.5-15.5) % Plt Count 250 (150-450) k/uL MPV 8.3 Neutrophils % 78 % Lymphocytes % 13 % Monocytes % 5 % Eosinophils % 3 % Basophils % 0 % Neutrophils # 7.8 H (1.3-7.7) k/uL Lymphocytes # 1.3 (1.0-4.8) k/uL Monocytes # 0.5 (0-1.0) k/uL Eosinophils # 0.3 (0-0.7) k/uL Basophils # 0.0 (0-0.2) k/uL Hypochromasia Slight Anisocytosis Slight PT (9.0-12.0) sec INR (<1.2) APTT (22.0-30.0) sec Sodium 135 L (137-145) mmol/L Potassium 3.9 (3.5-5.1) mmol/L Chloride 100 (98-107) mmol/L Carbon Dioxide 23 (22-30) mmol/L Anion Gap 12 mmol/L BUN 22 H (9-20) mg/dL Creatinine 1.40 H (0.66-1.25) mg/dL Est GFR (CKD-EPI)AfAm 60 (>60 ml/min/1.73 sqM) Est GFR (CKD-EPI)NonAf 52 (>60 ml/min/1.73 sqM) Glucose 164 H (74-99) mg/dL Calcium 8.6 (8.4-10.2) mg/dL Magnesium 1.3 L (1.6-2.3) mg/dL Total Bilirubin 0.9 (0.2-1.3) mg/dL AST 28 (17-59) U/L ALT 30 (4-49) U/L Alkaline Phosphatase 73 (38-126) U/L Troponin I 0.522 H* (0.000-0.034) ng/mL NT-Pro-B Natriuret Pep pg/mL Total Protein 6.8 (6.3-8.2) g/dL Albumin 4.0 (3.5-5.0) g/dL 01/02/23 01/02/23 Range/Units 20:55 20:55 WBC (3.8-10.6) k/uL RBC (4.30-5.90) m/uL Hgb (13.0-17.5) gm/dL Hct (39.0-53.0) % MCV (80.0-100.0) fL MCH (25.0-35.0) pg MCHC (31.0-37.0) g/dL RDW (11.5-15.5) % Plt Count (150-450) k/uL MPV Neutrophils % % Lymphocytes % % Monocytes % % Eosinophils % % Basophils % % Neutrophils # (1.3-7.7) k/uL Lymphocytes # (1.0-4.8) k/uL Monocytes # (0-1.0) k/uL Eosinophils # (0-0.7) k/uL Basophils # (0-0.2) k/uL Hypochromasia Anisocytosis PT 11.0 (9.0-12.0) sec INR 1.0 (<1.2) APTT 22.9 (22.0-30.0) sec Sodium (137-145) mmol/L Potassium (3.5-5.1) mmol/L Chloride (98-107) mmol/L Carbon Dioxide (22-30) mmol/L Anion Gap mmol/L BUN (9-20) mg/dL Creatinine (0.66-1.25) mg/dL Est GFR (CKD-EPI)AfAm (>60 ml/min/1.73 sqM) Est GFR (CKD-EPI)NonAf (>60 ml/min/1.73 sqM) Glucose (74-99) mg/dL Calcium (8.4-10.2) mg/dL Magnesium (1.6-2.3) mg/dL Total Bilirubin (0.2-1.3) mg/dL AST (17-59) U/L ALT (4-49) U/L Alkaline Phosphatase (38-126) U/L Troponin I (0.000-0.034) ng/mL NT-Pro-B Natriuret Pep 2150 pg/mL Total Protein (6.3-8.2) g/dL Albumin (3.5-5.0) g/dL Disposition Clinical Impression: CHF exacerbation Disposition: ADMITTED IP TO THIS HOSP Condition: Stable Is patient prescribed a controlled substance at d/c from ED?: No Referrals: Emmanuel Sevilla MD [Primary Care Provider] - 1-2 days Time of Disposition: 21:30 Decision to Admit Reason: Admit from EC Decision Date: 01/02/23 Decision Time: 21:30
[2023-01-03] MEDS ORDERED: IPRATROPIUM-ALBUTEROL 3 ML NEB INHALATION PRN (09:30)
[2023-01-03] MEDS ORDERED: carvediloL 3.125 MG TAB PO SCH (09:30)
[2023-01-03] MEDS ORDERED: DEXTROSE 50% SYRINGE 50 ML IVP PRN ×2 (09:49)
[2023-01-03] MEDS: ASPIRIN 81 MG PO SCH (10:28)
[2023-01-03] MEDS: FUROSEMIDE 10 MG/ML 4 ML VIAL IV SCH ×2 (10:29→20:58)
[2023-01-03] MEDS: ATORVASTATIN 40 MG TAB PO SCH (10:29)
[2023-01-03] MEDS: CLOPIDOGREL 75 MG TAB PO SCH (10:29)
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
[2023-01-03 11:21] LABS: Anisocytosis Slight; Basophils % (A) 0 %; Eosinophils # (A) 0.2 k/uL (0-0.7); Eosinophils % (A) 2 %; HCT 34.2 % (39.0-53.0); HGB 11.1 gm/dL (13.0-17.5); Hypochromasia Slight; Lymphocytes # (A) 1.2 k/uL (1.0-4.8); Lymphocytes % (A) 12 %; MCH 29.1 pg (25.0-35.0); MCHC 32.4 g/dL (31.0-37.0); MCV 89.9 fL (80.0-100.0); Mean Platelet Volume 8.3; Monocytes # (A) 0.5 k/uL (0-1.0); Monocytes % (A) 5 %; Neutrophils # (A) 7.8 k/uL (1.3-7.7); Neutrophils % (A) 79 %; Platelet Count 236 k/uL (150-450); RDW 17.6 % (11.5-15.5); WBC 9.9 k/uL (3.8-10.6)
[2023-01-03 11:24] LABS: Glucose,Whole Blood 286 mg/dL (70-110)
[2023-01-03] MEDS: IPRATROPIUM-ALBUTEROL 3 ML NEB INHALATION SCH ×2 (11:30→20:53)
[2023-01-03 11:36] LABS: African American GFR (CKD) 76 (>60 ml/min/1.73 sqM); Albumin 4.1 g/dL (3.5-5.0); Anion Gap 12 mmol/L; Blood Urea Nitrogen 20 mg/dL (9-20); Calcium 9.1 mg/dL (8.4-10.2); Carbon Dioxide 25 mmol/L (22-30); Chloride 98 mmol/L (98-107); Glucose 275 mg/dL (74-99); Non-African American GFR(CKD) 66 (>60 ml/min/1.73 sqM); Phosphorus 3.4 mg/dL (2.5-4.5); Sodium 135 mmol/L (137-145)
[2023-01-03] MEDS: SACUBITRIL/VALSARTAN 24 MG-26 MG TABLET PO SCH ×2 (13:20→21:26)
[2023-01-03] MEDS: INSULIN ASPART (NovoLOG) 100 UNIT/ML VIAL SQ SCH ×3 (13:20→20:59)
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
[2023-01-03 16:26] LABS: Glucose,Whole Blood 200 mg/dL (70-110)
[2023-01-03] MEDS: carvediloL 6.25 MG TAB PO SCH ×2 (18:15→21:28)
[2023-01-03] MEDS: cilostazoL 100 MG TAB PO SCH (18:15)
[2023-01-03 20:08] LABS: Glucose,Whole Blood 267 mg/dL (70-110)
[2023-01-03] MEDS: ALPRAZolam 0.25 MG TAB PO PRN (21:06)
[2023-01-04 06:09] LABS: Glucose,Whole Blood 241 mg/dL (70-110)
[2023-01-04] MEDS: INSULIN ASPART (NovoLOG) 100 UNIT/ML VIAL SQ SCH ×4 (06:33→20:43)
[2023-01-04] MEDS: cilostazoL 100 MG TAB PO SCH ×2 (06:33→16:50)
[2023-01-04 07:47] LABS: Anisocytosis Slight; Basophils % (A) 0 %; Eosinophils # (A) 0.2 k/uL (0-0.7); Eosinophils % (A) 3 %; HCT 33.6 % (39.0-53.0); HGB 10.8 gm/dL (13.0-17.5); Hypochromasia Slight; Lymphocytes # (A) 1.4 k/uL (1.0-4.8); Lymphocytes % (A) 17 %; MCH 28.7 pg (25.0-35.0); MCHC 32.1 g/dL (31.0-37.0); MCV 89.6 fL (80.0-100.0); Mean Platelet Volume 8.3; Monocytes # (A) 0.5 k/uL (0-1.0); Monocytes % (A) 7 %; Neutrophils # (A) 5.8 k/uL (1.3-7.7); Neutrophils % (A) 72 %; Platelet Count 229 k/uL (150-450); RBC 3.75 m/uL (4.30-5.90); RDW 17.5 % (11.5-15.5); WBC 8.1 k/uL (3.8-10.6)
[2023-01-04] MEDS: ASPIRIN 81 MG PO SCH (08:11)
[2023-01-04] MEDS: CLOPIDOGREL 75 MG TAB PO SCH (08:12)
[2023-01-04] MEDS: ATORVASTATIN 40 MG TAB PO SCH (08:12)
[2023-01-04] MEDS: FUROSEMIDE 10 MG/ML 4 ML VIAL IV SCH ×2 (08:26→20:43)
[2023-01-04 09:14] LABS: Chloride 98 mmol/L (98-107)
[2023-01-04 09:16] LABS: ALT 28 U/L (4-49); AST 24 U/L (17-59); African American GFR (CKD) 76 (>60 ml/min/1.73 sqM); Albumin 3.9 g/dL (3.5-5.0); Alkaline Phosphatase 67 U/L (38-126); Anion Gap 9 mmol/L; Blood Urea Nitrogen 19 mg/dL (9-20); Calcium 9.2 mg/dL (8.4-10.2); Carbon Dioxide 29 mmol/L (22-30); Glucose 172 mg/dL (74-99); Non-African American GFR(CKD) 66 (>60 ml/min/1.73 sqM); Potassium 4.4 mmol/L (3.5-5.1); Sodium 136 mmol/L (137-145); Total Bilirubin 1.1 mg/dL (0.2-1.3); Total Protein 6.9 g/dL (6.3-8.2)
[2023-01-04] MEDS: IPRATROPIUM-ALBUTEROL 3 ML NEB INHALATION SCH ×3 (09:19→21:14)
[2023-01-04 11:27] LABS: Glucose,Whole Blood 231 mg/dL (70-110)
[2023-01-04] MEDS ORDERED: REGADENOSON 0.4 MG/5 ML SYRINGE IV PRN (11:41)
[2023-01-04] MEDS ORDERED: CAFFEINE CITRATE 60 MG/3 ML VIAL IV PRN (11:41)
[2023-01-04] MEDS ORDERED: AMINOPHYLLINE 500 MG/20 ML VIAL IV PRN (11:41)
[2023-01-04] MEDS: SACUBITRIL/VALSARTAN 24 MG-26 MG TABLET PO SCH ×2 (12:22→20:43)
--- NOTE | 2023-01-04 13:08 | P.PN ---
Subjective Progress Note Date: 01/04/23 patient is a 67-year-old gentleman with past medical history significant for coronary artery disease status post stent placements, CHF, AICD placement who presented to the ER because of shortness of breath. Patient stated that he has been noticing increased shortness of breath on exertion for the last few days. [place] he noticed that he was getting short of breath on minimal exertion, patient denied any chest pain at the time. Patient was complaining of orthopnea and was waking up multiple times in the middle the night gasping for air. No complaint of palpitations. Denies any lightheadedness or dizziness. Shortness of breath continued to worsen and he decided come to the ER. Initial lab work done in the ER showed WBC 10.1, hemoglobin 10.7, platelet count 50, sodium 135, potassium 3.9, BUN 22, creatinine 1.40, magnesium 1.3, troponins 0.5-2, proBNP 2150 Chest x-ray done showed cardiomegaly with some pulmonary vascular congestion EKG done showed no acute ST segment elevation, did show T-wave inversions in lead 3 and aVF. Patient was admitted to medicine service 01/04. Patient seen and examined. Still having shortness of breath. There is no swelling of feet. REVIEW OF SYSTEMS: CONSTITUTIONAL: No fever, no malaise,. CARDIOVASCULAR: No chest pain, no palpitations, no syncope. PULMONARY: As mentioned above GASTROINTESTINAL: No diarrhea, no nausea, no vomiting, no abdominal pain. NEUROLOGICAL: No headaches, no weakness, PHYSICAL EXAMINATION: GENERAL: The patient is alert and oriented x3, not in any acute distress. Well developed, well nourished. HEENT: Pupils are round and equally reacting to light. EOMI. No scleral icterus. No conjunctival pallor. Normocephalic, atraumatic. No pharyngeal erythema. No thyromegaly. CARDIOVASCULAR: S1 and S2 present. No murmurs, rubs, or gallops. PULMONARY: Chest is clear to auscultation, no wheezing or crackles. ABDOMEN: Soft, nontender, nondistended, normoactive bowel sounds. No palpable organomegaly. MUSCULOSKELETAL: No joint swelling or deformity. EXTREMITIES: No cyanosis, clubbing, or pedal edema. NEUROLOGICAL: Gross neurological examination did not reveal any focal deficits. SKIN: No rashes. Assessment and plan Acute CHF Hypomagnesemia Elevated troponin Hypertension [id number]-xsfnievnc diabetes mellitus Monitor vital signs Monitor CBC Monitor CMP Continue telemetry monitoring Strict I's and O's, daily weights Continue IV Lasix 40 mg every 12 Follow-up on cardiology recommendations Labs and medication were reviewed.. Continue same treatment. Continue with symptomatic treatment. Resume home medication. Monitor labs and vitals. DVT and GI prophylaxis. Further recommendations as per clinical course of the patient Dictation was produced using [email or web address] dictation software. please excuse any g rammatical, word or spelling errors. Objective - Vital Signs Vital signs: Vital Signs Temp 97.8 F 01/04/23 12:15 Pulse 62 01/04/23 12:15 Resp 20 01/04/23 12:15 BP 96/57 01/04/23 12:15 Pulse Ox 98 01/04/23 12:15 FiO2 Intake & Output 01/03/23 01/04/23 01/04/23 18:59 06:59 18:59 Intake Total 358 360 Output Total 4300 1100 Balance -3942 -740 Weight 90.718 kg 92.3 kg 92.3 kg Intake: Oral 358 360 Output: Urine 4300 1100 Other: # Voids 1 - Labs CBC & Chem 7: 01/04/23 07:21 01/04/23 07:21 Labs: Abnormal Lab Results - Last 24 Hours (Table) 01/03/23 01/03/23 01/04/23 Range/Units 16:24 20:05 06:02 RBC (4.30-5.90) m/uL Hgb (13.0-17.5) gm/dL Hct (39.0-53.0) % RDW (11.5-15.5) % Sodium (137-145) mmol/L Glucose (74-99) mg/dL POC Glucose (mg/dL) 200 H 267 H 241 H (70-110) mg/dL Hemoglobin A1c (<=6.0) % 01/04/23 01/04/23 01/04/23 Range/Units 07:21 07:21 07:21 RBC 3.75 L (4.30-5.90) m/uL Hgb 10.8 L (13.0-17.5) gm/dL Hct 33.6 L (39.0-53.0) % RDW 17.5 H (11.5-15.5) % Sodium 136 L (137-145) mmol/L Glucose 172 H (74-99) mg/dL POC Glucose (mg/dL) (70-110) mg/dL Hemoglobin A1c 7.2 H (<=6.0) % 01/04/23 Range/Units 11:25 RBC (4.30-5.90) m/uL Hgb (13.0-17.5) gm/dL Hct (39.0-53.0) % RDW (11.5-15.5) % Sodium (137-145) mmol/L Glucose (74-99) mg/dL POC Glucose (mg/dL) 231 H (70-110) mg/dL Hemoglobin A1c (<=6.0) %
[2023-01-04] MEDS: carvediloL 6.25 MG TAB PO SCH ×2 (13:14→16:50)
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
[2023-01-04 16:33] LABS: Glucose,Whole Blood 184 mg/dL (70-110)
[2023-01-04 20:15] LABS: Glucose,Whole Blood 247 mg/dL (70-110)
[2023-01-05] MEDS: ALPRAZolam 0.25 MG TAB PO PRN ×2 (04:36→17:16)
[2023-01-05 06:10] LABS: Glucose,Whole Blood 190 mg/dL (70-110)
[2023-01-05] MEDS: carvediloL 6.25 MG TAB PO SCH ×2 (06:30→17:11)
[2023-01-05] MEDS: INSULIN ASPART (NovoLOG) 100 UNIT/ML VIAL SQ SCH ×4 (06:30→21:08)
[2023-01-05] MEDS: cilostazoL 100 MG TAB PO SCH ×2 (06:30→17:11)
[2023-01-05 07:31] LABS: Anisocytosis Slight; Basophils % (A) 0 %; Eosinophils # (A) 0.3 k/uL (0-0.7); Eosinophils % (A) 3 %; HCT 34.3 % (39.0-53.0); HGB 10.9 gm/dL (13.0-17.5); Hypochromasia Slight; Lymphocytes # (A) 1.3 k/uL (1.0-4.8); Lymphocytes % (A) 16 %; MCH 28.7 pg (25.0-35.0); MCHC 31.8 g/dL (31.0-37.0); MCV 90.3 fL (80.0-100.0); Monocytes # (A) 0.5 k/uL (0-1.0); Monocytes % (A) 6 %; Neutrophils # (A) 6.3 k/uL (1.3-7.7); Neutrophils % (A) 73 %; Platelet Count 218 k/uL (150-450); RDW 17.3 % (11.5-15.5); WBC 8.6 k/uL (3.8-10.6)
[2023-01-05 07:42] LABS: ALT 25 U/L (4-49); AST 26 U/L (17-59); African American GFR (CKD) 71 (>60 ml/min/1.73 sqM); Albumin 3.8 g/dL (3.5-5.0); Alkaline Phosphatase 73 U/L (38-126); Anion Gap 8 mmol/L; Blood Urea Nitrogen 25 mg/dL (9-20); Calcium 9.1 mg/dL (8.4-10.2); Carbon Dioxide 30 mmol/L (22-30); Chloride 98 mmol/L (98-107); Glucose 184 mg/dL (74-99); Non-African American GFR(CKD) 62 (>60 ml/min/1.73 sqM); Sodium 136 mmol/L (137-145); Total Bilirubin 0.8 mg/dL (0.2-1.3); Total Protein 6.5 g/dL (6.3-8.2)
[2023-01-05] MEDS ORDERED: REGADENOSON 0.4 MG/5 ML SYRINGE IV ONE (09:00)
[2023-01-05] MEDS: IPRATROPIUM-ALBUTEROL 3 ML NEB INHALATION SCH ×3 (09:03→21:20)
[2023-01-05 11:32] LABS: Glucose,Whole Blood 154 mg/dL (70-110)
--- NOTE | 2023-01-05 11:47 | NM ---
EXAMINATION TYPE: NM stress lexiscan cardiolite DATE OF EXAM: 01/05/2023 COMPARISON: NONE CLINICAL INDICATION: Male, 67 years old with history of CP; TECHNIQUE: After the intravenous administration of 10.1 mCi Tc 99m Sestamibi - Cardiolite resting SP ECT images acquired 45 minutes post injection. The patient received 0.4mg Lexiscan, 25.5 mCi Tc 99m Sestamibi - Stress images obtained [address] injection FINDINGS: Review of stress and rest SPECT images demonstrates fixed perfusion defects involving the mid to apic al casillas circumferentially around. The defects may become slightly larger on stress images. Gated ferny lysis shows marked hypokinesis with an estimated left ventricular ejection fraction of 15 %. TID is upper limits of normal at 1.07. IMPRESSION: 1. Correlate for ischemic cardiomyopathy. Large fixed defects circumferentially around the mid to api juju casillas of the left ventricle. There may also be subtle juanita-infarct ischemia here. 2. Marked global hypokinesis with estimated LVEF of 15 %.
--- NOTE | 2023-01-05 12:15 | CA ---
Lexiscan Nuclear Stress Test Report Name: Yvon Washington Exam Date: 01/05/2023 10:00 Exam Location: [place] Stress Ht (in): 65 Wt (lb): 205 BSA: 2.00 Ordering Phys: Jerome Keenan Referring Phys: JEROME KEENAN,, Technologist: Reginald Arambula Age: 67 Gender: M : 1955 Procedure CPT: Indications: Reflex order-Stress test ICD-10 Codes: Patient History: Medications: SEE CHART Meds past 24 hrs: Pretest Chest Pain: STRESS TEST Lexiscan Protocol Exercise Duration (min:sec): 02:[address] Depressions (mm): Angina Score: Dang Score: Resting HR (bpm): 79 Peak HR (bpm): 90 Resting BP (mmHg): 109 / 81 Peak BP (mmHg): 107 / 85 MPHR: 153 Target HR: 130 % MPHR: 59 METS: 1.0 Total Dose: Peak Dose: Atropine: Double Product: 9630 BP Response: Stress Termination: PROTOCOL COMPLETE Stress Symptoms: NO SYMPTOMS Stress Summary: ECG ANALYSIS Resting ECG: Stress ECG: CONCLUSIONS Resting EKG: Atrial sensed and ventricularly paced rhythm. Heart rate 78 bpm. Patient recieved IV infusion of Lexiscan 0.4mg and at peak infusion Stress EKG showed: Nondiagnostic for ischemia due to underlying paced rhythm. Arrythmias: Occasional premature ventricular contractions. No sustained arrhythmias Conclusions: 1. Atrial sensed and ventricularly paced rhythm but sinus mechanism. Heart rate 78 bpm 2. Nondiagnostic for ischemia due to underlying paced rhythm 3. Nuclear perfusion imaging is reported separately by the radiology team. Please refer to that report for complete interpretation of this study. Dr James Pritchett (Electronically Signed) Final Date: 05 January 2023 12:14
[2023-01-05] MEDS: FUROSEMIDE 10 MG/ML 4 ML VIAL IV SCH (12:17)
[2023-01-05] MEDS: CLOPIDOGREL 75 MG TAB PO SCH (12:18)
[2023-01-05] MEDS: ATORVASTATIN 40 MG TAB PO SCH (12:18)
[2023-01-05] MEDS: ASPIRIN 81 MG PO SCH (12:18)
[2023-01-05] MEDS: SACUBITRIL/VALSARTAN 24 MG-26 MG TABLET PO SCH ×2 (12:20→21:08)
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
--- NOTE | 2023-01-05 14:14 | P.PN ---
Subjective Progress Note Date: 01/05/23 patient is a 67-year-old gentleman with past medical history significant for coronary artery disease status post stent placements, CHF, AICD placement who presented to the ER because of shortness of breath. Patient stated that he has been noticing increased shortness of breath on exertion for the last few days. [place] he noticed that he was getting short of breath on minimal exertion, patient denied any chest pain at the time. Patient was complaining of orthopnea and was waking up multiple times in the middle the night gasping for air. No complaint of palpitations. Denies any lightheadedness or dizziness. Shortness of breath continued to worsen and he decided come to the ER. Initial lab work done in the ER showed WBC 10.1, hemoglobin 10.7, platelet count 50, sodium 135, potassium 3.9, BUN 22, creatinine 1.40, magnesium 1.3, troponins 0.5-2, proBNP 2150 Chest x-ray done showed cardiomegaly with some pulmonary vascular congestion EKG done showed no acute ST segment elevation, did show T-wave inversions in lead 3 and aVF. Patient was admitted to medicine service 01/04. Patient seen and examined. Still having shortness of breath. There is no swelling of feet. 01/05. Patient seen and examined. Nothing by mouth going for stress test today REVIEW OF SYSTEMS: CONSTITUTIONAL: No fever, no malaise,. CARDIOVASCULAR: No chest pain, no palpitations, no syncope. PULMONARY: As mentioned above GASTROINTESTINAL: No diarrhea, no nausea, no vomiting, no abdominal pain. NEUROLOGICAL: No headaches, no weakness, PHYSICAL EXAMINATION: GENERAL: The patient is alert and oriented x3, not in any acute distress. Well developed, well nourished. HEENT: Pupils are round and equally reacting to light. EOMI. No scleral icterus. No conjunctival pallor. Normocephalic, atraumatic. No pharyngeal erythema. No thyromegaly. CARDIOVASCULAR: S1 and S2 present. No murmurs, rubs, or gallops. PULMONARY: Chest is clear to auscultation, no wheezing or crackles. ABDOMEN: Soft, nontender, nondistended, normoactive bowel sounds. No palpable organomegaly. MUSCULOSKELETAL: No joint swelling or deformity. EXTREMITIES: No cyanosis, clubbing, or pedal edema. NEUROLOGICAL: Gross neurological examination did not reveal any focal deficits. SKIN: No rashes. Assessment and plan Acute CHF Hypomagnesemia Elevated troponin Hypertension Inv-srxaavy-gbgxcectv diabetes mellitus Monitor vital signs Monitor CBC Monitor CMP Continue telemetry monitoring Strict I's and O's, daily weights Continue IV Lasix 40 mg every 12 Currently nothing by mouth, going for stress test today Follow-up on cardiology recommendations Labs and medication were reviewed.. Continue same treatment. Continue with sy mptomatic treatment. Resume home medication. Monitor labs and vitals. DVT and GI prophylaxis. Further recommendations as per clinical course of the patient Dictation was produced using [employer] dictation software. please excuse any grammatical, word or spelling errors. Objective - Vital Signs Vital signs: Vital Signs Temp 98.4 F 01/05/23 08:00 Pulse 74 01/05/23 08:00 Resp 17 01/05/23 08:00 BP 110/72 01/05/23 08:00 Pulse Ox 95 01/05/23 08:00 FiO2 Intake & Output 01/04/23 01/05/23 01/05/23 18:59 06:59 18:59 Intake Total 718 Output Total 1100 Balance -382 Weight 92.3 kg 91.3 kg Intake: Oral 718 Output: Urine 1100 - Labs CBC & Chem 7: 01/05/23 06:52 01/05/23 06:52 Labs: Abnormal Lab Results - Last 24 Hours (Table) 01/04/23 01/04/23 01/04/23 Range/Units 07:21 11:25 16:31 RBC (4.30-5.90) m/uL Hgb (13.0-17.5) gm/dL Hct (39.0-53.0) % RDW (11.5-15.5) % Sodium (137-145) mmol/L BUN (9-20) mg/dL Glucose (74-99) mg/dL POC Glucose (mg/dL) 231 H 184 H (70-110) mg/dL Hemoglobin A1c 7.2 H (<=6.0) % 01/04/23 01/05/23 01/05/23 Range/Units 20:13 06:09 06:52 RBC 3.80 L (4.30-5.90) m/uL Hgb 10.9 L (13.0-17.5) gm/dL Hct 34.3 L (39.0-53.0) % RDW 17.3 H (11.5-15.5) % Sodium (137-145) mmol/L BUN (9-20) mg/dL Glucose (74-99) mg/dL POC Glucose (mg/dL) 247 H 190 H (70-110) mg/dL Hemoglobin A1c (<=6.0) % 01/05/23 Range/Units 06:52 RBC (4.30-5.90) m/uL Hgb (13.0-17.5) gm/dL Hct (39.0-53.0) % RDW (11.5-15.5) % Sodium 136 L (137-145) mmol/L BUN 25 H (9-20) mg/dL Glucose 184 H (74-99) mg/dL POC Glucose (mg/dL) (70-110) mg/dL Hemoglobin A1c (<=6.0) %
[2023-01-05 16:21] LABS: Glucose,Whole Blood 172 mg/dL (70-110)
[2023-01-05] MEDS: FUROSEMIDE 40 MG TAB PO SCH (17:11)
[2023-01-05 20:07] LABS: Glucose,Whole Blood 224 mg/dL (70-110)
[2023-01-06] MEDS: ALPRAZolam 0.25 MG TAB PO PRN (00:24)
[2023-01-06 06:06] LABS: Glucose,Whole Blood 160 mg/dL (70-110)
[2023-01-06] MEDS: cilostazoL 100 MG TAB PO SCH (06:11)
[2023-01-06] MEDS: carvediloL 6.25 MG TAB PO SCH (06:11)
[2023-01-06] MEDS: INSULIN ASPART (NovoLOG) 100 UNIT/ML VIAL SQ SCH (06:11)
[2023-01-06] MEDS: IPRATROPIUM-ALBUTEROL 3 ML NEB INHALATION SCH ×2 (07:59→11:18)
[2023-01-06 08:35] VITALS: BP 96/62; RESP 18; TEMP 97.5
[2023-01-06] MEDS: SACUBITRIL/VALSARTAN 24 MG-26 MG TABLET PO SCH (08:37)
[2023-01-06] MEDS: CLOPIDOGREL 75 MG TAB PO SCH (08:37)
[2023-01-06] MEDS: ASPIRIN 81 MG PO SCH (08:37)
[2023-01-06] MEDS: FUROSEMIDE 40 MG TAB PO SCH (08:38)
[2023-01-06] MEDS: ATORVASTATIN 40 MG TAB PO SCH (08:38)
[2023-01-06 09:12] LABS: Anisocytosis Slight; Basophils % (A) 0 %; Eosinophils # (A) 0.3 k/uL (0-0.7); Eosinophils % (A) 3 %; HCT 35.9 % (39.0-53.0); HGB 11.2 gm/dL (13.0-17.5); Hypochromasia Moderate; Lymphocytes # (A) 1.1 k/uL (1.0-4.8); Lymphocytes % (A) 16 %; MCH 28.6 pg (25.0-35.0); MCHC 31.2 g/dL (31.0-37.0); MCV 91.5 fL (80.0-100.0); Monocytes # (A) 0.4 k/uL (0-1.0); Monocytes % (A) 5 %; Neutrophils # (A) 5.4 k/uL (1.3-7.7); Neutrophils % (A) 74 %; Platelet Count 259 k/uL (150-450); RBC 3.92 m/uL (4.30-5.90); WBC 7.3 k/uL (3.8-10.6)
[2023-01-06 09:41] LABS: ALT 25 U/L (4-49); AST 32 U/L (17-59); African American GFR (CKD) 82 (>60 ml/min/1.73 sqM); Albumin 3.9 g/dL (3.5-5.0); Alkaline Phosphatase 89 U/L (38-126); Anion Gap 9 mmol/L; Blood Urea Nitrogen 21 mg/dL (9-20); Calcium 8.9 mg/dL (8.4-10.2); Carbon Dioxide 29 mmol/L (22-30); Chloride 96 mmol/L (98-107); Glucose 353 mg/dL (74-99); Non-African American GFR(CKD) 71 (>60 ml/min/1.73 sqM); Potassium 4.4 mmol/L (3.5-5.1); Sodium 134 mmol/L (137-145); Total Bilirubin 0.7 mg/dL (0.2-1.3); Total Protein 6.7 g/dL (6.3-8.2)
[2023-01-06 11:19] VITALS: PULSE 80
[2023-01-06 11:35] LABS: Glucose,Whole Blood 268 mg/dL (70-110)
--- NOTE | 2023-01-06 12:57 | P.DS ---
Providers Date of admission: 01/04/23 12:51 Expected date of discharge: 01/06/23 Attending physician: Sukhdeep Meneses Consults: 01/02/23 23:05 Consult Physician Routine Consulting Provider: [facility] Consult Reason/Comments: CHF exas Do you want consulting provider notified?: Yes, Notify in am Primary care physician: Emmanuel Sevilla MD Hospital Course: Discharge diagnoses; Acute systolic CHF Hypomagnesemia Elevated troponin Hypertension Ycb-rskxapv-odtbqgmgr diabetes mellitus Hospital course; patient is a 67-year-old gentleman with past medical history significant for coronary artery disease status post stent placements, CHF, AICD placement who presented to the ER because of shortness of breath. Patient stated that he has been noticing increased shortness of breath on exertion for the last few days. [place] he noticed that he was getting short of breath on minimal exertion, patient denied any chest pain at the time. Patient was complaining of orthopnea and was waking up multiple times in the middle the night gasping for air. No complaint of palpitations. Denies any lightheadedness or dizziness. Shortness of breath continued to worsen and he decided come to the ER. Initial lab work done in the ER showed WBC 10.1, hemoglobin 10.7, platelet count 50, sodium 135, potassium 3.9, BUN 22, creatinine 1.40, magnesium 1.3, troponins 0.5-2, proBNP 2150 Chest x-ray done showed cardiomegaly with some pulmonary vascular congestion EKG done showed no acute ST segment elevation, did show T-wave inversions in lead 3 and aVF. Patient was admitted to medicine service 01/04. Patient seen and examined. Still having shortness of breath. There is no swelling of feet. 01/05. Patient seen and examined. Nothing by mouth going for stress test today 01/06. Patient seen and examined. Stress test done showed large fixed defect circumferentially around the mid to apical casillas of the left ventricle, there may be subtle juanita-infarct ischemia here. Results of stress test were reviewed by cardiology and were discussed with patient, at this time they recommended medical management and recommended outpatient follow-up. PHYSICAL EXAMINATION: GENERAL: The patient is alert and oriented x3, not in any acute distress. Well developed, well nourished. HEENT: Pupils are round and equally reacting to light. EOMI. No scleral icterus. No conjunctival pallor. Normocephalic, atraumatic. No pharyngeal erythema. No thyromegaly. CARDIOVASCULAR: S1 and S2 present. No murmurs, rubs, or gallops. PULMONARY: Chest is clear to auscultation, no wheezing or crackles. ABDOMEN: Soft, nontender, nondistended, normoactive bowel sounds. No palpable organomegaly. MUSCULOSKELETAL: No joint swelling or deformity. EXTREMITIES: No cyanosis, clubbing, or pedal edema. NEUROLOGICAL: Gross neurological examination did not reveal any focal deficits. SKIN: No rashes. Dictation was produced using [employer] dictation software. please excuse any grammatical, word or spelling errors. Patient Condition at Discharge: Stable Plan - Discharge Summary New Discharge Prescriptions: New Furosemide [Lasix] 40 mg PO BID@0900,1600 #60 tab Continue Glimepiride [Amaryl] 1 mg PO BID Ferrous Sulfate [Iron (65 MG Elemental)] 325 mg PO DAILY Atorvastatin [Lipitor] 40 mg PO DAILY Midodrine HCl [ProAmatine] 10 mg PO Q8H Sacubitril/Valsartan [Entresto 24 mg-26 mg Tablet] 0.5 tab PO BID cilostazoL [Pletal] 50 mg PO BID carvediloL [Coreg] 6.25 mg PO Q8H metFORMIN HCL [Glucophage] 1,000 mg PO BID Clopidogrel [Plavix] 75 mg PO DAILY Folic Acid 1 mg PO DAILY Nitroglycerin Sl Tabs [Nitrostat] 0.4 mg SL Q5M PRN PRN Reason: Chest Pain Pantoprazole [Protonix] 40 mg PO DAILY PRN PRN Reason: Heartburn Baclofen [Lioresal] 10 mg PO HS PRN PRN Reason: Muscle Spasm Empagliflozin [Jardiance] 10 mg PO DAILY Aspirin EC [Ecotrin Low Dose] 81 mg PO DAILY Albuterol Inhaler [Ventolin Hfa Inhaler] 4 puff INHALATION RT-Q6H PRN PRN Reason: Shortness Of Breath Or Wheezing Discontinued Furosemide [Lasix] 40 mg PO DAILY #30 tab Discharge Medication List Atorvastatin [Lipitor] 40 mg PO DAILY 10/19/21 [History] Clopidogrel [Plavix] 75 mg PO DAILY 10/19/21 [History] Ferrous Sulfate [Iron (65 MG Elemental)] 325 mg PO DAILY 10/19/21 [History] Glimepiride [Amaryl] 1 mg PO BID 10/19/21 [History] metFORMIN HCL [Glucophage] 1,000 mg PO BID 10/19/21 [History] Folic Acid 1 mg PO DAILY 11/19/21 [History] Nitroglycerin Sl Tabs [Nitrostat] 0.4 mg SL Q5M PRN 11/19/21 [History] Albuterol Inhaler [Ventolin Hfa Inhaler] 4 puff INHALATION RT-Q6H PRN 01/03/23 [History] Aspirin EC [Ecotrin Low Dose] 81 mg PO DAILY 01/03/23 [History] Baclofen [Lioresal] 10 mg PO HS PRN 01/03/23 [History] Empagliflozin [Jardiance] 10 mg PO DAILY 01/03/23 [History] Midodrine HCl [ProAmatine] 10 mg PO Q8H 01/03/23 [History] Pantoprazole [Protonix] 40 mg PO DAILY PRN 01/03/23 [History] Sacubitril/Valsartan [Entresto 24 mg-26 mg Tablet] 0.5 tab PO BID 01/03/23 [History] carvediloL [Coreg] 6.25 mg PO Q8H 01/03/23 [History] cilostazoL [Pletal] 50 mg PO BID 01/03/23 [History] Furosemide [Lasix] 40 mg PO BID@0900,1600 #60 tab 01/06/23 [Rx] Follow up Appointment(s)/Referral(s): Dale Fuchs DO [STAFF PHYSICIAN] - 1 Week (or his primary dermatology physician assistant in 1 week) Emmanule Sevilla MD [Primary Care Provider] - 1-2 days Discharge Disposition: HOME SELF-CARE
== END 2023-01-06 12:35 | disposition home or self-care (01) | DRG 291 ==
LOC: EC 20:14 → 6NMEDSUR 23:06 → 3SCARD 23:53 → OBSVTOIN 01-04 12:51
PROVIDERS: ADMIT Internal Medicine; ATTEND Internal Medicine
DX: I11.0 Hypertensive heart disease with heart failure (principal); I50.23 Acute on chronic systolic (congestive) heart failure; N17.9 Acute kidney failure, unspecified; I25.5 Ischemic cardiomyopathy; E83.42 Hypomagnesemia; E78.5 Hyperlipidemia, unspecified; E11.51 Type 2 diabetes mellitus with diabetic peripheral angiopathy without gangrene; F06.4 Anxiety disorder due to known physiological condition; R77.8 Other specified abnormalities of plasma proteins; I25.10 Atherosclerotic heart disease of native coronary artery without angina pectoris; R09.02 Hypoxemia; Z79.02 Long term (current) use of antithrombotics/antiplatelets; Z79.82 Long term (current) use of aspirin; Z79.84 Long term (current) use of oral hypoglycemic drugs; Z79.899 Other long term (current) drug therapy; Z95.5 Presence of coronary angioplasty implant and graft; Z95.810 Presence of automatic (implantable) cardiac defibrillator
CPT/HCPCS: 36415; 71046; 78452; 80053; 80069; 83036; 83735; 83880; 84484; 85025; 85610; 85730; 93005; 93017; 94640; 94760; 96374; 96375; 99285

== ENCOUNTER → 2023-02-08 | Outpatient (CLI) | payer MEDICARE ==
[2023-02-08 20:33] LABS: Basophils # (A) 0.05 X 10*3/uL (0.00-0.10); Basophils % (A) 0.5 %; HCT 42.9 % (39.6-50.0); HGB 13.6 d/dL (13.0-17.0); Lymphocytes # (A) 1.71 X 10*3/uL (0.90-5.00); MCH 29.6 pg (27.0-32.0); MCHC 31.7 d/dL (32.0-37.0); MCV 93.3 FL (80.0-97.0); Mean Platelet Volume 10.2 FL (9.5-12.2); Monocytes # (A) 0.95 X 10*3/uL (0.20-1.00); Monocytes % (A) 9.4 %; NRBC Per 100 WBC 0 X 10*3/uL (0.00-0.01); Neutrophils % (A) 69.5 %; Platelet Count 261 X 10*3/uL (140-440); RDW 15.8 % (11.5-14.5); WBC 10.07 X 10*3/uL (4.50-10.00)
[2023-02-08 21:07] LABS: ALT 17 U/L (10-49); AST 16 U/L (14-35); Albumin 4.9 d/dL (3.8-4.9); Albumin/Globulin Ratio 1.69 Ratio (1.60-3.17); Alkaline Phosphatase 74 U/L (41-126); BUN/Creat Ratio 15.15 Ratio (12.00-20.00); Blood Urea Nitrogen 19.7 mg/dL (9.0-27.0); Calcium 10.3 mg/dL (8.7-10.3); Chloride 98 mmol/L (96-109); Globulin 2.9 d/dL (1.6-3.3); Glucose 170 mg/dL (70-110); Sodium 139 mmol/L (135-145); Total Bilirubin 0.5 mg/dL (0.3-1.2); Total Protein 7.8 d/dL (6.2-8.2)
== END | disposition home or self-care (01) ==
LOC: LABWHC1 12:54
PROVIDERS: ATTEND Internal Medicine Interventional Cardiology
DX: I73.9 Peripheral vascular disease, unspecified (principal)
CPT/HCPCS: 36415; 80053; 85025

== ENCOUNTER 2023-03-03 23:59 | Inpatient (IN) | payer MEDICARE ==
[2023-03-04 00:11] LABS: Glucose,Whole Blood 296 mg/dL (70-110)
[2023-03-04] MEDS ORDERED: FUROSEMIDE 10 MG/ML 4 ML VIAL IV STA (00:12)
[2023-03-04 00:28] LABS: Basophils % (A) 0 %; Eosinophils # (A) 0.2 k/uL (0-0.7); Eosinophils % (A) 1 %; HCT 40.6 % (39.0-53.0); HGB 13.1 gm/dL (13.0-17.5); Hypochromasia Slight; Lymphocytes # (A) 2.5 k/uL (1.0-4.8); Lymphocytes % (A) 17 %; MCH 29.3 pg (25.0-35.0); MCHC 32.4 g/dL (31.0-37.0); MCV 90.4 fL (80.0-100.0); Mean Platelet Volume 7.9; Monocytes # (A) 0.9 k/uL (0-1.0); Monocytes % (A) 6 %; Neutrophils # (A) 10.9 k/uL (1.3-7.7); Neutrophils % (A) 74 %; Platelet Count 287 k/uL (150-450); RBC 4.49 m/uL (4.30-5.90); RDW 15.6 % (11.5-15.5); WBC 14.7 k/uL (3.8-10.6)
[2023-03-04 00:38] LABS: ALT 23 U/L (4-49); AST 25 U/L (17-59); African American GFR (CKD) 79 (>60 ml/min/1.73 sqM); Albumin 4.4 g/dL (3.5-5.0); Alkaline Phosphatase 82 U/L (38-126); Anion Gap 15 mmol/L; Blood Urea Nitrogen 17 mg/dL (9-20); Calcium 9.5 mg/dL (8.4-10.2); Carbon Dioxide 21 mmol/L (22-30); Chloride 100 mmol/L (98-107); Glucose 285 mg/dL (74-99); Lipase 203 U/L (23-300); Magnesium 1.7 mg/dL (1.6-2.3); Non-African American GFR(CKD) 69 (>60 ml/min/1.73 sqM); Potassium 4.4 mmol/L (3.5-5.1); Sodium 136 mmol/L (137-145); Total Bilirubin 0.5 mg/dL (0.2-1.3); Total Protein 7.6 g/dL (6.3-8.2)
[2023-03-04 00:45] LABS: NT-Pro-B-Type Natriuretic Pept 1380 pg/mL
[2023-03-04 01:03] LABS: Prothrombin Time 10.2 sec (9.0-12.0)
[2023-03-04] MEDS ORDERED: NALOXONE 0.4 MG/ML 1 ML VIAL IV PRN (01:54)
--- NOTE | 2023-03-04 01:54 | ED ---
General Adult HPI - General Chief complaint: Shortness of Breath Stated complaint: CHEST PAIN Time Seen by Provider: 03/04/23 00:04 Source: family Mode of arrival: wheelchair Limitations: no limitations - History of Present Illness Initial comments: This is a 67-year-old male with a past mental history including congestive heart failure as well as significant peripheral artery disease presents emergency department for acute shortness of breath today. The patient stated that he underwent an outpatient procedure for his lower extremity vasculature and stated that he was at home when he suddenly had increasing shortness of breath. The patient stated that he had worsening distress and needed to sit upright in order to breathe. The patient stated it felt as if he was fluid overloaded once again. The patient stated that this is happened multiple times in the past. The patient was tachypneic and in a tripod position during my evaluation however was able to speak full sentences. The patient denied any cough, congestion, fevers or chills. - Related Data Home Medications Medication Instructions Recorded Confirmed Atorvastatin [Lipitor] 40 mg PO DAILY 10/19/21 01/03/23 Clopidogrel [Plavix] 75 mg PO DAILY 10/19/21 01/03/23 Ferrous Sulfate [Iron (65 MG 325 mg PO DAILY 10/19/21 01/03/23 Elemental)] Glimepiride [Amaryl] 1 mg PO BID 10/19/21 01/03/23 metFORMIN HCL [Glucophage] 1,000 mg PO BID 10/19/21 01/03/23 Folic Acid 1 mg PO DAILY 11/19/21 01/03/23 Nitroglycerin Sl Tabs [Nitrostat] 0.4 mg SL Q5M PRN 11/19/21 01/03/23 Albuterol Inhaler [Ventolin Hfa 4 puff INHALATION RT-Q6H PRN 01/03/23 01/03/23 Inhaler] Aspirin EC [Ecotrin Low Dose] 81 mg PO DAILY 01/03/23 01/03/23 Baclofen [Lioresal] 10 mg PO HS PRN 01/03/23 01/03/23 Empagliflozin [Jardiance] 10 mg PO DAILY 01/03/23 01/03/23 Midodrine HCl [ProAmatine] 10 mg PO Q8H 01/03/23 01/03/23 Pantoprazole [Protonix] 40 mg PO DAILY PRN 01/03/23 01/03/23 Sacubitril/Valsartan [Entresto 24 0.5 tab PO BID 01/03/23 01/03/23 mg-26 mg Tablet] carvediloL [Coreg] 6.25 mg PO Q8H 01/03/23 01/03/23 cilostazoL [Pletal] 50 mg PO BID 01/03/23 01/03/23 Previous Rx's Medication Instructions Recorded Furosemide [Lasix] 40 mg PO BID@0900,1600 #60 tab 01/06/23 Allergies Allergy/AdvReac Type Severity Reaction Status Date / Time adhesive tape Allergy Unknown Rash/Hives Verified 03/04/23 00:11 Review of Systems ROS Statement: Those systems with pertinent positive or pertinent negative responses have been documented in the HPI. ROS Other: All systems not noted in ROS Statement are negative. Past Medical History Past Medical History: Coronary Artery Disease (CAD), Heart Failure, Diabetes Mellitus Additional Past Medical History / Comment(s): STATES TYPE 2 DIABETES-NO LONGER NEEDS MEDICATION DUE TO WT LOSS-BUT TAKES IT TO HELP WITH CONTINUED WT LOSS. , PAST HX OF STAPH INFECTION RIGHT SHOULDER WITH PICC LINE ., STATES PAIN RIGHT SHOULDER AND NECK. History of Any Multi-Drug Resistant Organisms: None Reported Past Surgical History: Heart Catheterization With Stent, Orthopedic Surgery Additional Past Surgical History / Comment(s): RIGHT SHOULDER X8., LEFT SHOULDER X2., PICC LINE. internal defibulator Past Anesthesia/Blood Transfusion Reactions: No Reported Reaction Date of Last Stent Placement:: 11/18/21 Past Psychological History: No Psychological Hx Reported Smoking Status: Former smoker Past Alcohol Use History: Occasional Past Drug Use History: None Reported - Past Family History Father Family Medical History: Cancer Additional Family Medical History / Comment(s): PROSTATE CANCER General Exam Limitations: no limitations General appearance: in distress (In respiratory distress, tripoding) Head exam: Present: atraumatic, normocephalic, normal inspection Eye exam: Present: normal appearance, PERRL Pupils: Present: normal accommodation ENT exam: Present: normal exam, normal oropharynx, mucous membranes moist Neck exam: Present: normal inspection, full ROM Respiratory exam: Present: accessory muscle use, decreased breath sounds. Absent: wheezes, rhonchi, chest wall tenderness Cardiovascular Exam: Present: normal rhythm, tachycardia GI/Abdominal exam: Present: soft, normal bowel sounds Extremities exam: Present: normal inspection, full ROM Back exam: Present: normal inspection, full ROM Neurological exam: Present: alert, oriented X3, CN II-XII intact Psychiatric exam: Present: normal affect, normal mood Skin exam: Present: warm, dry Course Vital Signs 03/04/23 03/04/23 03/04/23 00:09 00:18 00:22 Temperature 98 F Pulse Rate 125 H 111 H Respiratory 44 H 26 H Rate Blood Pressure 144/89 119/92 O2 Sat by Pulse 84 L 98 Oximetry Fraction of 50 Inspired Oxygen (FIO2) 03/04/23 03/04/23 03/04/23 00:27 00:30 00:45 Temperature Pulse Rate 106 H 101 H Respiratory 32 H 24 24 Rate Blood Pressure 119/92 94/82 O2 Sat by Pulse 94 L 98 Oximetry Fraction of Inspired Oxygen (FIO2) 03/04/23 03/04/23 01:00 01:15 Temperature Pulse Rate 93 90 Respiratory 24 22 Rate Blood Pressure 102/86 106/76 O2 Sat by Pulse 97 97 Oximetry Fraction of Inspired Oxygen (FIO2) EKG Findings - EKG Comments: EKG Findings:: An EKG was obtained and was interpreted by myself showing a rate of 121, NV interval 159, QRS duration 1:30 and QTC of 395. This EKG showed an alcohol chronically ventricular paced rhythm however there was no ST segment elevation or depression noted. Medical Decision Making - Medical Decision Making Was pt. sent in by a medical professional or institution (, PA, PLOW HOLDER, urgent ca re, hospital, or residential...) When possible be specific @ -No Did you speak to anyone other than the patient for history (EMS, parent, family, police, friend...)? What history was obtained from this source @ -No Did you review nursing and triage notes (agree or disagree)? Why? @ -I reviewed and agree with nursing and triage notes Were old charts reviewed (outside hosp., previous admission, EMS record, old EKG, old radiological studies, urgent care reports/EKG's, residential records)? Report findings @ -No old charts were reviewed Differential Diagnosis (chest pain, altered mental status, abdominal pain women, abdominal pain men, vaginal bleeding, weakness, fever, dyspnea, syncope, headache, dizziness, GI bleed, back pain, seizure, CVA, palpatations, mental health)? @ -CHF exacerbation, COPD exacerbation, pneumonia, pneumothorax EKG interpreted by me (3pts min.). @ -As above X-rays interpreted by me (1pt min.). @ -Chest x-ray was obtained and was interpreted by myself showing congestion CT interpreted by me (1pt min.). @ -None done U/S interpreted by me (1pt. min.). @ -None done What testing was considered but not performed or refused? (CT, X-rays, U/S, labs)? Why? @ -None What meds were considered but not given or refused? Why? @ -None Did you discuss the management of the patient with other professionals (professionals i.e. , PA, PLOW HOLDER, lab, RT, psych nurse, social security specialist, warehouse logistics coordinator, teacher, labor relations officer, director of casework services)? Give summary @ -Yes, Dr. Davila was contacted regarding patient admission. Was smoking cessation discussed for >3mins.? @ -No Was critical care preformed (if so, how long)? @ -Yes, see above Were there social determinants of health that impacted care today? How? (Homelessness, low income, unemployed, alcoholism, drug addiction, transportation, low edu. Level, literacy, decrease access to med. care, longterm, rehab)? @ -No Was there de-escalation of care discussed even if they declined (Discuss DNR or withdrawal of care, Hospice)? DNR status @ -No What co-morbidities impacted this encounter? (DM, HTN, Smoking, COPD, CAD, Cancer, CVA, ARF, Chemo, Hep., AIDS, mental health diagnosis, sleep apnea, morbid obesity)? @ -Congestive heart failure, peripheral artery disease Was patient admitted / discharged? Hospital course, mention meds given and route, prescriptions, significant lab abnormalities, going to OR and other pertinent info. @ -The patient was seen and evaluated in emergency department. On physical exam, the patient was resting in bed however was in laboratory distress, tripoding and tachypnea. The patient however was able to speak in full sentences. The patient did have an oxygen saturation of 83% on room air and was tachypneic on arrival. Due to this, the patient was placed on BiPAP immediately. Workup was obtained and likely she'll congestion and the patient's lungs however proBNP was mildly elevated. The patient's troponin was elevated however was decreased from the patient's normal baseline. On reevaluation, the patient's heart rate did decrease to the 70-80 range and had significant improvement of his status. The patient did state that his breathing had greatly improved. Due to the patient's likely CHF exacerbation, the patient did receiv e 1 dose of Lasix. The patient did require admission and Dr. Davila accepted the patient for admission. The patient was agreeable to this and the patient was admitted in stable condition. Undiagnosed new problem with uncertain prognosis? @ -No Drug Therapy requiring intensive monitoring for toxicity (Heparin, Nitro, Insulin, Cardizem)? @ -No Were any procedures done? @ -No Diagnosis/symptom? @ -CHF exacerbation, with hypoxia Acute, or Chronic, or Acute on Chronic? @ -Acute Uncomplicated (without systemic symptoms) or Complicated (systemic symptoms)? @ -Complicated Side effects of treatment? @ -No Exacerbation, Progression, or Severe Exacerbation? @ -Exacerbation Poses a threat to life or bodily function? How? (Chest pain, USA, SC, pneumonia, PE, COPD, DKA, ARF, appy, cholecystitis, CVA, Diverticulitis, Homicidal, Suicidal, threat to staff... and all critical care pts) @ -Yes, continued hypoxia with CHF can lead to permanent damage and possible . - Lab Data Result diagrams: 03/04/23 00:10 03/04/23 00:10 Lab Results 03/04/23 03/04/23 03/04/23 Range/Units 00:10 00:10 00:10 WBC 14.7 H (3.8-10.6) k/uL RBC 4.49 (4.30-5.90) m/uL Hgb 13.1 (13.0-17.5) gm/dL Hct 40.6 (39.0-53.0) % MCV 90.4 (80.0-100.0) fL MCH 29.3 (25.0-35.0) pg MCHC 32.4 (31.0-37.0) g/dL RDW 15.6 H (11.5-15.5) % Plt Count 287 (150-450) k/uL MPV 7.9 Neutrophils % 74 % Lymphocytes % 17 % Monocytes % 6 % Eosinophils % 1 % Basophils % 0 % Neutrophils # 10.9 H (1.3-7.7) k/uL Lymphocytes # 2.5 (1.0-4.8) k/uL Monocytes # 0.9 (0-1.0) k/uL Eosinophils # 0.2 (0-0.7) k/uL Basophils # 0.0 (0-0.2) k/uL Hypochromasia Slight PT 10.2 (9.0-12.0) sec INR 1.0 (<1.2) APTT 22.0 (22.0-30.0) sec Sodium (137-145) mmol/L Potassium (3.5-5.1) mmol/L Chloride (98-107) mmol/L Carbon Dioxide (22-30) mmol/L Anion Gap mmol/L BUN (9-20) mg/dL Creatinine (0.66-1.25) mg/dL Est GFR (CKD-EPI)AfAm (>60 ml/min/1.73 sqM) Est GFR (CKD-EPI)NonAf (>60 ml/min/1.73 sqM) Glucose (74-99) mg/dL POC Glucose (mg/dL) 296 H (70-110) mg/dL POC Glu Fret Saw Operator ID Tramaine Ham Calcium (8.4-10.2) mg/dL Magnesium (1.6-2.3) mg/dL Total Bilirubin (0.2-1.3) mg/dL AST (17-59) U/L ALT (4-49) U/L Alkaline Phosphatase (38-126) U/L Troponin I (0.000-0.034) ng/mL NT-Pro-B Natriuret Pep pg/mL Total Protein (6.3-8.2) g/dL Albumin (3.5-5.0) g/dL Lipase (23-300) U/L 03/04/23 03/04/23 Range/Units 00:10 00:10 WBC (3.8-10.6) k/uL RBC (4.30-5.90) m/uL Hgb (13.0-17.5) gm/dL Hct (39.0-53.0) % MCV (80.0-100.0) fL MCH (25.0-35.0) pg MCHC (31.0-37.0) g/dL RDW (11.5-15.5) % Plt Count (150-450) k/uL MPV Neutrophils % % Lymphocytes % % Monocytes % % Eosinophils % % Basophils % % Neutrophils # (1.3-7.7) k/uL Lymphocytes # (1.0-4.8) k/uL Monocytes # (0-1.0) k/uL Eosinophils # (0-0.7) k/uL Basophils # (0-0.2) k/uL Hypochromasia PT (9.0-12.0) sec INR (<1.2) APTT (22.0-30.0) sec Sodium 136 L (137-145) mmol/L Potassium 4.4 (3.5-5.1) mmol/L Chloride 100 (98-107) mmol/L Carbon Dioxide 21 L (22-30) mmol/L Anion Gap 15 mmol/L BUN 17 (9-20) mg/dL Creatinine 1.11 (0.66-1.25) mg/dL Est GFR (CKD-EPI)AfAm 79 (>60 ml/min/1.73 sqM) Est GFR (CKD-EPI)NonAf 69 (>60 ml/min/1.73 sqM) Glucose 285 H (74-99) mg/dL POC Glucose (mg/dL) (70-110) mg/dL POC Glu Fret Saw Operator ID Calcium 9.5 (8.4-10.2) mg/dL Magnesium 1.7 (1.6-2.3) mg/dL Total Bilirubin 0.5 (0.2-1.3) mg/dL AST 25 (17-59) U/L ALT 23 (4-49) U/L Alkaline Phosphatase 82 (38-126) U/L Troponin I 0.037 H* (0.000-0.034) ng/mL NT-Pro-B Natriuret Pep 1380 pg/mL Total Protein 7.6 (6.3-8.2) g/dL Albumin 4.4 (3.5-5.0) g/dL Lipase 203 (23-300) U/L Critical Care Time Critical Care Time: Yes Total Critical Care Time: 31 Disposition Clinical Impression: CHF (congestive heart failure), Respiratory failure Disposition: ADMITTED IP TO THIS HOSP Condition: Stable Is patient prescribed a controlled substance at d/c from ED?: No Referrals: Emmanuel Sevilla MD [Primary Care Provider] - 1-2 days Time of Disposition: 01:30 Decision to Admit Reason: Admit from EC Decision Date: 03/04/23 Decision Time: 01:30
--- NOTE | 2023-03-04 02:03 | XR ---
EXAM: XR Chest, 1 View CLINICAL HISTORY: ITS.REASON XR Reason: CP TECHNIQUE: Frontal view of the chest. COMPARISON: No relevant prior studies available. IMPRESSION: Cardiomegaly. Minimal vascular congestion
[2023-03-04] MEDS ORDERED: FUROSEMIDE 10 MG/ML 4 ML VIAL IV SCH (09:00)
[2023-03-04] MEDS ORDERED: BACLOFEN 10 MG TAB PO PRN (09:06)
[2023-03-04] MEDS ORDERED: ALBUTEROL NEBULIZED 2.5 MG/3 ML INHALATION PRN (09:06)
[2023-03-04] MEDS ORDERED: NITROGLYCERIN SL TABS 0.4 MG TAB SUBLINGUAL PRN (09:06)
[2023-03-04] MEDS ORDERED: Magnesium Replacement Protocol 1 EACH MISC MISCELLANE PRN (09:08)
[2023-03-04] MEDS ORDERED: DEXTROSE 50% SYRINGE 50 ML IVP PRN ×2 (09:08)
[2023-03-04] MEDS ORDERED: CLOPIDOGREL 75 MG TAB PO SCH (09:15)
[2023-03-04] MEDS ORDERED: ATORVASTATIN 40 MG TAB PO SCH (09:15)
[2023-03-04] MEDS ORDERED: FERROUS SULFATE 325 MG TAB PO SCH (09:15)
[2023-03-04] MEDS ORDERED: FOLIC ACID 1 MG TAB PO SCH (09:15)
[2023-03-04] MEDS ORDERED: cilostazoL 100 MG TAB PO SCH (09:30)
[2023-03-04] MEDS ORDERED: DAPAGLIFLOZIN PROPANEDIOL 5 MG TABLET PO SCH (09:30)
[2023-03-04] MEDS ORDERED: ASPIRIN 81 MG PO SCH (09:30)
[2023-03-04] MEDS ORDERED: MIDODRINE 5 MG TAB PO SCH (09:30)
[2023-03-04] MEDS ORDERED: GLIMEPIRIDE 1 MG TAB PO SCH (09:30)
[2023-03-04] MEDS ORDERED: PANTOPRAZOLE 40 MG TABLET PO SCH (09:30)
[2023-03-04] MEDS ORDERED: DIGOXIN 125 MCG TAB PO SCH (09:30)
[2023-03-04] MEDS ORDERED: MAGNESIUM SULFATE-D5W PMX 1 GM in DEXTROSE/WATER 1 100ML.BAG IVPB ONE (10:00)
[2023-03-04] MEDS ORDERED: ACETAMINOPHEN TAB 325 MG TAB PO PRN (11:12)
[2023-03-04 11:21] LABS: Glucose,Whole Blood 227 mg/dL (70-110)
[2023-03-04] MEDS ORDERED: HYDROcodone/APAP 5-325MG 1 EACH TAB PO PRN (11:22)
[2023-03-04 11:24] LABS: Glucose,Whole Blood 228 mg/dL (70-110)
[2023-03-04] MEDS ORDERED: INSULIN ASPART (NovoLOG) 100 UNIT/ML VIAL SQ SCH (12:30)
--- NOTE | 2023-03-04 13:24 | P.CRDCN ---
History of Present Illness Consult date: 03/04/23 Consult reason: congestive heart failure (Exacerbation with hypoxia) History of present illness: History of present illness: This is a 67-year-old male with a past medical history of Coronary artery disease s/p stenting, chronic systolic heart failure, ischemic cardiomyopathy with AICD, Peripheral artery disease s/p stenting and stenting to the right SFA, right common femoral artery, right iliac artery 11/2019, hypertension, dyslipidemia, former smoker. He follows with Dr. Hinojosa in [place]. We are asked to see in consultation for heart failure. Patient states that he had a procedure yesterday to "blockage of 50% behind his right knee at [place] with his i&c technician. He states he did not take Lasix during the day because of the procedure was on hold and when he got home later in the night he was feeling around 7:00 some shortness of breath and he took 40 mg. Then later he took another 20 mg couple hours later. He states he normally takes 40 mg daily. He then came into the hospital for further evaluation. He did not have any lower extremity edema which he states he never has. He states he had increasing shortness of breath and with exertion. This is resolved the patient is status post IV Lasix 40 mg 2. Home medications have been resumed. EKG reveals ventricularly paced rhythm Chest xray cardiomegaly, minimal vascular congestion WBC 10.1, hemoglobin 10.7, platelet count 250. INR 1. Sodium 135, potassium 3.9, BUN 22 and creatinine 1.4. Blood sugar 164. Magnesium 1.3. Troponin 0.5- 2. ProBNP 2150. Current home cardiac medications aspirin 81 mg daily, Lipitor 40 mg daily, Coreg 6.25 mg every 8 hours, pletal 50 mg twice daily, Plavix 75 mg daily, Jardiance 10 mg daily, Lasix 40 mg twice daily, midodrine 10 mg every 8 hours, Nitrostat as needed, Entresto 2426 milligrams half a tablet twice a day. [facility] cardiac imaging 03/2022 revealed markedly diminished LV EF measuring 23.1%. Echocardiogram 11/2021 revealed EF 25%, dilated left atrium severe, moderate mitr al regurgitation, mild tricuspid regurgitation, RVSP 33. Lexiscan Cardiolite stress test performed on 01/05/2023 at [facility] revealed correlate for ischemic cardiomyopathy. Large fixed defects circumferentially around the mid to apical casillas of the left ventricle. There may also be subtle. Infarct ischemia here. Jose hypokinesis with estimated LVEF of 15%. REVIEW OF SYSTEMS At the time of my exam: CONSTITUTIONAL: Denies fever or chills. CARDIOVASCULAR: Denies chest pain, Reports shortness of breath, +orthopnea, +PND Denies palpitations. RESPIRATORY: Denies cough. GASTROINTESTINAL: Denies abdominal pain, diarrhea, constipation, nausea or vomiting. MUSCULOSKELETAL: Denies myalgias. NEUROLOGIC: Denies numbness, tingling, headacbe or weakness. ENDOCRINE: Denies fatigue, weight change, polydipsia or polyurina. GENITOURINARY: Denies burning, hematuria or urgency with micturation. HEMATOLOGIC: Denies history of anemia or bleeding. PHYSICAL EXAMINATION Blood pressure 116/59 HR 81 afebrile 100% on BIPAP CONSTITUTIONAL: This is a 67-year-old male resting in bed appears to be comforta ble. HEENT: Head is normocephalic. Pupils are equal, round. Sclerae anicteric. Mucous membranes of the mouth are moist. No JVD. No carotid bruit. CHEST EXAMINATION: Lungs are clear to auscultation. No chest wall tenderness is noted on palpation or with deep breathing. HEART EXAMINATION: Regular rate and rhythm. S1, S2 heard. No murmurs, gallops or rub. ABDOMEN: Soft, nontender. Positive bowel sounds. EXTREMITIES: 2+ peripheral pulses, no lower extremity edema and no calf tenderness. NEUROLOGIC EXAMINATION: Patient is awake, alert and oriented x3. ASSESSMENT Acute on chronic systolic heart failure Ischemic cardiomyopathy status post AICD Acute kidney injury Elevated troponin possibly due to heart failure and kidney failure, rule out non-ST [place] Coronary artery disease s/p stenting Peripheral artery disease s/p stenting recently in September 2021, and stenting to the right SFA, right common femoral artery, right iliac artery 11/2019 Hypertension Dyslipidemia Former smoker PLAN Monitor I/Os, daily weights Monitor renal function and electrolytes Resume patient's home cardiac medications Patient is cleared from cardiology and may go back on all of his home medications. Recommend Lasix 40 mg in the morning and 2020 in the afternoon for the next 3 days. Patient is to follow-up with his primary i&c technician. Nurse practitioner note has been reviewed by physician. Signing provider agrees with the documented findings, assessment, and plan of care. Past Medical History Past Medical History: Coronary Artery Disease (CAD), Heart Failure, Diabetes Mellitus Additional Past Medical History / Comment(s): STATES TYPE 2 DIABETES-NO LONGER NEEDS MEDICATION DUE TO WT LOSS-BUT TAKES IT TO HELP WITH CONTINUED WT LOSS. , PAST HX OF STAPH INFECTION RIGHT SHOULDER WITH PICC LINE ., STATES PAIN RIGHT SHOULDER AND NECK. History of Any Multi-Drug Resistant Organisms: None Reported Past Surgical History: Heart Catheterization With Stent, Orthopedic Surgery Additional Past Surgical History / Comment(s): RIGHT SHOULDER X8., LEFT SHOULDER X2., PICC LINE. internal defibulator Past Anesthesia/Blood Transfusion Reactions: No Reported Reaction Date of Last Stent Placement:: 11/18/21 Past Psychological History: No Psychological Hx Reported Smoking Status: Former smoker Past Alcohol Use History: Occasional Additional Past Alcohol Use History / Comment(s): SMOKES 1/2 PPD, (DOWN FROM 1PPD). SMOKING FOR 40 YEARS. Past Drug Use History: None Reported - Past Family History Father Family Medical History: Cancer Additional Family Medical History / Comment(s): PROSTATE CANCER Medications and Allergies Home Medications Medication Instructions Recorded Confirmed Type Atorvastatin [Lipitor] 40 mg PO DAILY 10/19/21 03/04/23 History Clopidogrel [Plavix] 75 mg PO DAILY 10/19/21 03/04/23 History Ferrous Sulfate [Iron (65 MG 325 mg PO DAILY 10/19/21 03/04/23 History Elemental)] Glimepiride [Amaryl] 1 mg PO BID 10/19/21 03/04/23 History metFORMIN HCL [Glucophage] 1,000 mg PO DIRECTED 10/19/21 03/04/23 History Folic Acid 1 mg PO DAILY 11/19/21 03/04/23 History Nitroglycerin Sl Tabs [Nitrostat] 0.4 mg SL Q5M PRN 11/19/21 03/04/23 History Albuterol Inhaler [Ventolin Hfa 4 puff INHALATION RT-Q6H PRN 01/03/23 03/04/23 History Inhaler] Aspirin EC [Ecotrin Low Dose] 81 mg PO DAILY 01/03/23 03/04/23 History Baclofen [Lioresal] 10 mg PO HS PRN 01/03/23 03/04/23 History Empagliflozin [Jardiance] 10 mg PO DAILY 01/03/23 03/04/23 History Midodrine HCl [ProAmatine] 10 mg PO BID 01/03/23 03/04/23 History Pantoprazole [Protonix] 40 mg PO DAILY PRN 01/03/23 03/04/23 History Sacubitril/Valsartan [Entresto 24 0.5 tab PO BID 01/03/23 03/04/23 History mg-26 mg Tablet] carvediloL [Coreg] 6.25 mg PO Q8H 01/03/23 03/04/23 History cilostazoL [Pletal] 50 mg PO BID 01/03/23 03/04/23 History Furosemide [Lasix] 40 mg PO BID@0900,1600 #60 tab 01/06/23 03/04/23 Rx Digoxin [Digitek] 125 mcg PO DAILY 03/04/23 03/04/23 History lisinopriL [Zestril] 5 mg PO BID 03/04/23 03/04/23 History Allergies Allergy/AdvReac Type Severity Reaction Status Date / Time adhesive tape Allergy Unknown Rash/Hives Verified 03/04/23 08:52 Physical Exam Vitals: Vital Signs Temp Pulse Pulse Resp BP BP Pulse Ox 03/04/23 04:00 88 20 03/04/23 03:34 97.6 F 88 22 100/53 96 03/04/23 02:49 97.9 F 03/04/23 02:30 86 19 119/90 98 03/04/23 02:00 91 37 H 108/67 99 03/04/23 01:45 85 27 H 104/49 98 03/04/23 01:30 96 48 H 121/92 97 03/04/23 01:15 90 22 106/76 97 03/04/23 01:00 93 24 102/86 97 03/04/23 00:45 101 H 24 94/82 98 03/04/23 00:30 106 H 24 119/92 94 L 03/04/23 00:27 32 H 03/04/23 00:22 111 H 26 H 119/92 98 03/04/23 00:18 03/04/23 00:09 98 F 125 H 44 H 144/89 84 L FiO2 03/04/23 04:00 03/04/23 03:34 03/04/23 02:49 03/04/23 02:30 03/04/23 02:00 03/04/23 01:45 03/04/23 01:30 03/04/23 01:15 03/04/23 01:00 03/04/23 00:45 03/04/23 00:30 03/04/23 00:27 03/04/23 00:22 03/04/23 00:18 50 03/04/23 00:09 Intake and Output 03/03/23 03/04/23 03/04/23 22:59 06:59 14:59 Intake Total 0 Output Total 0 Balance 0 Intake: Oral 0 Output: Urine 0 Other: Voiding Method Toilet Weight 92.5 kg Results 03/04/23 00:10 03/04/23 00:10 Cardiac Enzymes 03/04/23 03/04/23 Range/Units 00:10 00:10 AST 25 (17-59) U/L Troponin I 0.037 H* (0.000-0.034) ng/mL Coagulation 03/04/23 Range/Units 00:10 PT 10.2 (9.0-12.0) sec APTT 22.0 (22.0-30.0) sec CBC 03/04/23 Range/Units 00:10 WBC 14.7 H (3.8-10.6) k/uL RBC 4.49 (4.30-5.90) m/uL Hgb 13.1 (13.0-17.5) gm/dL Hct 40.6 (39.0-53.0) % Plt Count 287 (150-450) k/uL Comprehensive Metabolic Panel 03/04/23 Range/Units 00:10 Sodium 136 L (137-145) mmol/L Potassium 4.4 (3.5-5.1) mmol/L Chloride 100 (98-107) mmol/L Carbon Dioxide 21 L (22-30) mmol/L BUN 17 (9-20) mg/dL Creatinine 1.11 (0.66-1.25) mg/dL Glucose 285 H (74-99) mg/dL Calcium 9.5 (8.4-10.2) mg/dL AST 25 (17-59) U/L ALT 23 (4-49) U/L Alkaline Phosphatase 82 (38-126) U/L Total Protein 7.6 (6.3-8.2) g/dL Albumin 4.4 (3.5-5.0) g/dL Current Medications Generic Name Dose Route Start Last Admin Trade Name Freq PRN Reason Stop Dose Admin Naloxone HCl 0.2 mg 03/04/23 01:54 Naloxone 0.4 Mg/Ml 1 Ml Vial IV Q2M PRN Opioid Reversal Intake and Output 03/03/23 03/04/23 03/04/23 22:59 06:59 14:59 Intake Total 0 Output Total 0 Balance 0 Intake: Oral 0 Output: Urine 0 Other: Voiding Method Toilet Weight 92.5 kg 03/04/23 00:10 03/04/23 00:10
[2023-03-04 15:31] VITALS: BP 112/55; PULSE 46; RESP 18; TEMP 97.5
[2023-03-04 15:33] VITALS: BMI 31.0
--- NOTE | 2023-03-04 21:29 | P.HPIM ---
History of Present Illness H&P Date: 03/04/23 This is a 67 year old male with medical history of coronary artery disease prior cardiac stenting, ischemic cardiomyopathy, heart failure, diabetes mellitus, and former smoker. Patient comes to the ER with complaints of worsening shortness of breath and felt like he was in a CHF exacerbation. Patient underwent elective peripheral revascularization with Dr. Issa yesterday and missed his AM lasix dos e. He then tried to catch up took a 40 mg tablet and a 20 mg tablet a few hrs later in the evening without improvement in symptoms so he came in to the ER. A chest xray shows cardiomegaly with minimal vascular congestion. EKG shows ventricular pacemaker, patient has an AICD for known ischemic cardiomyopathy with an EF of 15%. He denies chest pain, no palpitations. Blood sugar 200s, troponin 0.037, proBNP 1380. Stable renal function. Patient was admitted with cardiology consultation. He was given IV lasix with improvement in symptoms. He has some degree of shortness of breath at baseline. REVIEW OF SYSTEMS: CONSTITUTIONAL: No fever, no malaise, no fatigue. HEENT: No recent visual problems or hearing problems. Denied any sore throat. CARDIOVASCULAR: No chest pain, orthopnea, PND, no palpitations, no syncope. PULMONARY: Reports shortness of breath, no cough, no hemoptysis. GASTROINTESTINAL: No diarrhea, no nausea, no vomiting, no abdominal pain. NEUROLOGICAL: No headaches, no weakness, no numbness. HEMATOLOGICAL: Denies any bleeding or petechiae. GENITOURINARY: Denies any burning micturition, frequency, or urgency. MUSCULOSKELETAL/RHEUMATOLOGICAL: Denies any joint pain, swelling, or any muscle pain. ENDOCRINE: Denies any polyuria or polydipsia. The rest of the 14-point review of systems is negative. PHYSICAL EXAMINATION: GENERAL: The patient is alert and oriented x3, not in any acute distress. Well developed, well nourished. HEENT: Pupils are round and equally reacting to light. EOMI. No scleral icterus. No conjunctival pallor. Normocephalic, atraumatic. No pharyngeal erythema. No thyromegaly. CARDIOVASCULAR: S1 and S2 present. No murmurs, rubs, or gallops. PULMONARY: Chest is clear to auscultation, no wheezing or crackles. ABDOMEN: Soft, nontender, nondistended, normoactive bowel sounds. No palpable organomegaly. MUSCULOSKELETAL: No joint swelling or deformity. EXTREMITIES: No cyanosis, clubbing, or pedal edema. NEUROLOGICAL: Gross neurological examination did not reveal any focal deficits. SKIN: No rashes. Assessment Shortness of breath Acute on chronic systolic dysfunction Troponin elevation possibly due to heart failure exacerbation Peripheral artery disease with stenting Ischemic cardiomyopathy EF 15% Hypertension Dyslipidemia Hx of AICD Diabetes Mellitus type 2 Former Smoker GI prophylaxis Full Code Plan Transition back to PO lasix cardiology recommending 40 mg lasix in the AM 20 mg lasix in the PM for the next 3 days and transition back to oral lasix 40 mg BID. Cardiology consultation pending If patient is cleared by cardio can D/C home to follow up in the office The impression and plan of care has been dictated by Verenice Wright Nurse Practitioner as directed. Dr. Catalina MD I have performed a history and physical examination and medical decision making of this patient, discussed the same with the dictator, and agree with the dictators assessment and plan as written, documented as a scribe. Based on total visit time, I have performed more than 50% of this visit. Past Medical History Past Medical History: Coronary Artery Disease (CAD), Heart Failure, Diabetes Mellitus Additional Past Medical History / Comment(s): STATES TYPE 2 DIABETES-NO LONGER NEEDS MEDICATION DUE TO WT LOSS-BUT TAKES IT TO HELP WITH CONTINUED WT LOSS. , PAST HX OF STAPH INFECTION RIGHT SHOULDER WITH PICC LINE ., STATES PAIN RIGHT SHOULDER AND NECK. History of Any Multi-Drug Resistant Organisms: None Reported Past Surgical History: Heart Catheterization With Stent, Orthopedic Surgery Additional Past Surgical History / Comment(s): RIGHT SHOULDER X8., LEFT SHOULDER X2., PICC LINE. internal defibulator Past Anesthesia/Blood Transfusion Reactions: No Reported Reaction Date of Last Stent Placement:: 11/18/21 Past Psychological History: No Psychological Hx Reported Smoking Status: Former smoker Past Alcohol Use History: Occasional Additional Past Alcohol Use History / Comment(s): SMOKES 1/2 PPD, (DOWN FROM 1PPD). SMOKING FOR 40 YEARS. Past Drug Use History: None Reported - Past Family History Father Family Medical History: Cancer Additional Family Medical History / Comment(s): PROSTATE CANCER Medications and Allergies Home Medications Medication Instructions Recorded Confirmed Type Atorvastatin [Lipitor] 40 mg PO DAILY 10/19/21 03/04/23 History Clopidogrel [Plavix] 75 mg PO DAILY 10/19/21 03/04/23 History Ferrous Sulfate [Iron (65 MG 325 mg PO DAILY 10/19/21 03/04/23 History Elemental)] Glimepiride [Amaryl] 1 mg PO BID 10/19/21 03/04/23 History Folic Acid 1 mg PO DAILY 11/19/21 03/04/23 History Nitroglycerin Sl Tabs [Nitrostat] 0.4 mg SL Q5M PRN 11/19/21 03/04/23 History Albuterol Inhaler [Ventolin Hfa 4 puff INHALATION RT-Q6H PRN 01/03/23 03/04/23 History Inhaler] Aspirin EC [Ecotrin Low Dose] 81 mg PO DAILY 01/03/23 03/04/23 History Baclofen [Lioresal] 10 mg PO HS PRN 01/03/23 03/04/23 History Midodrine HCl [ProAmatine] 10 mg PO BID 01/03/23 03/04/23 History Pantoprazole [Protonix] 40 mg PO DAILY PRN 01/03/23 03/04/23 History Sacubitril/Valsartan [Entresto 24 0.5 tab PO BID 01/03/23 03/04/23 History mg-26 mg Tablet] carvediloL [Coreg] 6.25 mg PO Q8H 01/03/23 03/04/23 History cilostazoL [Pletal] 50 mg PO BID 01/03/23 03/04/23 History Furosemide [Lasix] 40 mg PO BID@0900,1600 #60 tab 01/06/23 03/04/23 Rx Digoxin [Digitek] 125 mcg PO DAILY 03/04/23 03/04/23 History Empagliflozin [Jardiance] 25 mg PO DAILY #30 tablet 03/04/23 Rx lisinopriL [Zestril] 5 mg PO BID 03/04/23 03/04/23 History Allergies Allergy/AdvReac Type Severity Reaction Status Date / Time adhesive tape Allergy Unknown Rash/Hives Verified 03/04/23 08:52 Physical Exam Vitals: Vital Signs Temp Pulse Pulse Resp BP BP Pulse Ox 03/04/23 04:00 88 20 03/04/23 03:34 97.6 F 88 22 100/53 96 03/04/23 02:49 97.9 F 03/04/23 02:30 86 19 119/90 98 03/04/23 02:00 91 37 H 108/67 99 03/04/23 01:45 85 27 H 104/49 98 03/04/23 01:30 96 48 H 121/92 97 03/04/23 01:15 90 22 106/76 97 03/04/23 01:00 93 24 102/86 97 03/04/23 00:45 101 H 24 94/82 98 03/04/23 00:30 106 H 24 119/92 94 L 03/04/23 00:27 32 H 03/04/23 00:22 111 H 26 H 119/92 98 03/04/23 00:18 03/04/23 00:09 98 F 125 H 44 H 144/89 84 L FiO2 03/04/23 04:00 03/04/23 03:34 03/04/23 02:49 03/04/23 02:30 03/04/23 02:00 03/04/23 01:45 03/04/23 01:30 03/04/23 01:15 03/04/23 01:00 03/04/23 00:45 03/04/23 00:30 03/04/23 00:27 03/04/23 00:22 03/04/23 00:18 50 03/04/23 00:09 Intake and Output 03/03/23 03/04/23 03/04/23 22:59 06:59 14:59 Intake Total 0 Output Total 0 Balance 0 Intake: Oral 0 Output: Urine 0 Other: Voiding Method Toilet Weight 92.5 kg Results CBC & Chem 7: 03/04/23 00:10 03/04/23 00:10 Labs: Abnormal Lab Results - Last 24 Hours (Table) 03/04/23 03/04/23 03/04/23 Range/Units 00:10 00:10 00:10 WBC 14.7 H (3.8-10.6) k/uL RDW 15.6 H (11.5-15.5) % Neutrophils # 10.9 H (1.3-7.7) k/uL Sodium 136 L (137-145) mmol/L Carbon Dioxide 21 L (22-30) mmol/L Glucose 285 H (74-99) mg/dL POC Glucose (mg/dL) 296 H (70-110) mg/dL Troponin I (0.000-0.034) ng/mL 03/04/23 Range/Units 00:10 WBC (3.8-10.6) k/uL RDW (11.5-15.5) % Neutrophils # (1.3-7.7) k/uL Sodium (137-145) mmol/L Carbon Dioxide (22-30) mmol/L Glucose (74-99) mg/dL POC Glucose (mg/dL) (70-110) mg/dL Troponin I 0.037 H* (0.000-0.034) ng/mL Thrombosis Risk Factor Assmnt - Choose All That Apply Each Factor Represents 1 point: Age 41-60 years, Heart failure (<1month), Minor surgery planned Other congenital or acquired thrombophilia - If yes, enter type in comment: No Thrombosis Risk Factor Assessment Total Risk Factor Score: 3 Thrombosis Risk Factor Assessment Level: Moderate Risk Assessment and Plan Time with Patient: Less than 30
--- NOTE | 2023-03-06 17:12 | P.DS ---
Providers Date of admission: 03/04/23 01:57 Attending physician: Cortez Davila MD Consults: 03/04/23 01:54 Consult Physician Routine Consulting Provider: [facility] Consult Reason/Comments: CHF exas with hypoxia Do you want consulting provider notified?: Yes, Notify in am Primary care physician: Emmanuel Sevilla MD Hospital Course: Final Diagnosis Shortness of breath Acute on chronic systolic dysfunction resolved with IV lasix Troponin elevation possibly due to heart failure exacerbation Peripheral artery disease with revascularizatin. Ischemic cardiomyopathy EF 15% Hypertension Dyslipidemia Hx of AICD Diabetes Mellitus type 2 Former Smoker GI prophylaxis Full Code Discharge Disposition Patient is stable for discharge home has been cleared by cardiology. Patient recommended to take lasix 40 mg in the AM and 20 mg in the PM for the next 3 days than to continue 40 mg BID. Follow up with cardiology on discharge in 1 to 2 weeks. Recommend to increase jardiance to 25 mg daily. Stop metformin due to a mild metabolic acidosis. Recommend to discuss glycemic control with your PCP on discharge. Hospital Course This is a 67 year old male with medical history of coronary artery disease prior cardiac stenting, ischemic cardiomyopathy, heart failure, diabetes mellitus, and former smoker. Patient comes to the ER with complaints of worsening shortness of breath and felt like he was in a CHF exacerbation. Patient underwent elective peripheral revascularization with Dr. Issa yesterday and missed his AM lasix dose. He then tried to catch up took a 40 mg tablet and a 20 mg tablet a few hrs later in the evening without improvement in symptoms so he came in to the ER. A chest xray shows cardiomegaly with minimal vascular congestion. EKG shows ventricular pacemaker, patient has an AICD for known ischemic cardiomyopathy with an EF of 15%. He denies chest pain, no palpitations. Blood sugar 200s, troponin 0.037, proBNP 1380. Stable renal function. Patient was admitted with cardiology consultation. He was given IV lasix with improvement in symptoms. He has some degree of shortness of breath at baseline. Patient will be discharged home with the above mentioned recommendations. Cardiology has cleared patient for discharged medically he is stable and at baseline. Please see medication reconciliation for a list of current medication. Thank you for allowing us to participate in the care of this patient. The impression and plan of care has been dictated by Verenice Wright, Nurse Practitioner as directed. Dr. Catalina MD I have performed a history and physical examination and medical decision making of this patient, discussed the same with the dictator, and agree with the dictators assessment and plan as written, documented as a scribe. Based on total visit time, I have performed more than 50% of this visit. Patient Condition at Discharge: Stable Plan - Discharge Summary Discharge Rx Participant: No New Discharge Prescriptions: New Empagliflozin [Jardiance] 25 mg PO DAILY #30 tablet Continue Glimepiride [Amaryl] 1 mg PO BID Ferrous Sulfate [Iron (65 MG Elemental)] 325 mg PO DAILY Atorvastatin [Lipitor] 40 mg PO DAILY Midodrine HCl [ProAmatine] 10 mg PO BID Sacubitril/Valsartan [Entresto 24 mg-26 mg Tablet] 0.5 tab PO BID cilostazoL [Pletal] 50 mg PO BID carvediloL [Coreg] 6.25 mg PO Q8H Furosemide [Lasix] 40 mg PO BID@0900,1600 #60 tab lisinopriL [Zestril] 5 mg PO BID Clopidogrel [Plavix] 75 mg PO DAILY Folic Acid 1 mg PO DAILY Nitroglycerin Sl Tabs [Nitrostat] 0.4 mg SL Q5M PRN PRN Reason: Chest Pain Pantoprazole [Protonix] 40 mg PO DAILY PRN PRN Reason: Heartburn Baclofen [Lioresal] 10 mg PO HS PRN PRN Reason: Muscle Spasm Aspirin EC [Ecotrin Low Dose] 81 mg PO DAILY Albuterol Inhaler [Ventolin Hfa Inhaler] 4 puff INHALATION RT-Q6H PRN PRN Reason: Shortness Of Breath Or Wheezing Digoxin [Digitek] 125 mcg PO DAILY Discontinued metFORMIN HCL [Glucophage] 1,000 mg PO DIRECTED Empagliflozin [Jardiance] 10 mg PO DAILY Discharge Medication List Atorvastatin [Lipitor] 40 mg PO DAILY 10/19/21 [History] Clopidogrel [Plavix] 75 mg PO DAILY 10/19/21 [History] Ferrous Sulfate [Iron (65 MG Elemental)] 325 mg PO DAILY 10/19/21 [History] Glimepiride [Amaryl] 1 mg PO BID 10/19/21 [History] Folic Acid 1 mg PO DAILY 11/19/21 [History] Nitroglycerin Sl Tabs [Nitrostat] 0.4 mg SL Q5M PRN 11/19/21 [History] Albuterol Inhaler [Ventolin Hfa Inhaler] 4 puff INHALATION RT-Q6H PRN 01/03/23 [History] Aspirin EC [Ecotrin Low Dose] 81 mg PO DAILY 01/03/23 [History] Baclofen [Lioresal] 10 mg PO HS PRN 01/03/23 [History] Midodrine HCl [ProAmatine] 10 mg PO BID 01/03/23 [History] Pantoprazole [Protonix] 40 mg PO DAILY PRN 01/03/23 [History] Sacubitril/Valsartan [Entresto 24 mg-26 mg Tablet] 0.5 tab PO BID 01/03/23 [History] carvediloL [Coreg] 6.25 mg PO Q8H 01/03/23 [History] cilostazoL [Pletal] 50 mg PO BID 01/03/23 [History] Furosemide [Lasix] 40 mg PO BID@0900,1600 #60 tab 01/06/23 [Rx] Digoxin [Digitek] 125 mcg PO DAILY 03/04/23 [History] Empagliflozin [Jardiance] 25 mg PO DAILY #30 tablet 03/04/23 [Rx] lisinopriL [Zestril] 5 mg PO BID 03/04/23 [History] Follow up Appointment(s)/Referral(s): Emmanuel Sevilla MD [Primary Care Provider] - 03/08/23 9:45 am Patient Instructions/Handouts: Heart Failure (DC) Activity/Diet/Wound Care/Special Instructions: Follow up with cardiology on discharge in 1 to 2 weeks Recommend to continue on lasix cardiology recommending for the next 3 days 40 mg daily of lasix and 20 mg in the afternoon. Than resume 40 mg twice a day. Recommend to increase jardiance to 25 mg daily. Stop metformin due to a mild metabolic acidosis. Recommend to discuss glycemic control with your PCP on discharge. Discharge Disposition: HOME SELF-CARE
== END 2023-03-04 15:01 | disposition home or self-care (01) | DRG 291 ==
LOC: EC 23:59 → 3SCARD 03-04 01:57
PROVIDERS: ADMIT Internal Medicine; ATTEND Internal Medicine
DX: I11.0 Hypertensive heart disease with heart failure (principal); I50.23 Acute on chronic systolic (congestive) heart failure; J96.91 Respiratory failure, unspecified with hypoxia; N17.9 Acute kidney failure, unspecified; I73.9 Peripheral vascular disease, unspecified; E11.9 Type 2 diabetes mellitus without complications; I25.10 Atherosclerotic heart disease of native coronary artery without angina pectoris; E78.5 Hyperlipidemia, unspecified; I25.5 Ischemic cardiomyopathy; Z79.02 Long term (current) use of antithrombotics/antiplatelets; Z79.82 Long term (current) use of aspirin; Z79.84 Long term (current) use of oral hypoglycemic drugs; Z79.899 Other long term (current) drug therapy; Z80.42 Family history of malignant neoplasm of prostate; Z86.19 Personal history of other infectious and parasitic diseases; Z95.5 Presence of coronary angioplasty implant and graft; Z95.810 Presence of automatic (implantable) cardiac defibrillator; Z87.891 Personal history of nicotine dependence; Z88.8 Allergy status to other drugs, medicaments and biological substances
CPT/HCPCS: 36415; 71045; 80053; 83690; 83735; 83880; 84484; 85025; 85610; 85730; 94660; 96374; 99285

== ENCOUNTER → 2023-04-08 | Outpatient (CLI) | payer MEDICARE ==
[2023-04-08 08:56] LABS: NT-Pro-B-Type Natriuretic Pept 1260 pg/mL
[2023-04-08 10:22] LABS: ALT 23 U/L (4-49); AST 21 U/L (17-59); African American GFR (CKD) 78 (>60 ml/min/1.73 sqM); Albumin 4.4 g/dL (3.5-5.0); Albumin/Globulin Ratio 1.4; Alkaline Phosphatase 88 U/L (38-126); Anion Gap 15 mmol/L; Blood Urea Nitrogen 21 mg/dL (9-20); Calcium 9.4 mg/dL (8.4-10.2); Carbon Dioxide 21 mmol/L (22-30); Chloride 100 mmol/L (98-107); Digoxin <0.4 ng/mL; Globulin 3.2 g/dL; Glucose 355 mg/dL (74-99); Magnesium 2.1 mg/dL (1.6-2.3); Non-African American GFR(CKD) 68 (>60 ml/min/1.73 sqM); Potassium 4.5 mmol/L (3.5-5.1); Sodium 136 mmol/L (137-145); Total Bilirubin 0.5 mg/dL (0.2-1.3); Total Protein 7.6 g/dL (6.3-8.2)
[2023-04-08 11:12] LABS: HCT 45.8 % (39.6-50.0); HGB 14.7 d/dL (13.0-17.0); MCH 29.2 pg (27.0-32.0); MCHC 32.1 d/dL (32.0-37.0); MCV 91.1 FL (80.0-97.0); Mean Platelet Volume 9.6 FL (9.5-12.2); NRBC Per 100 WBC 0 X 10*3/uL (0.00-0.01); Platelet Count 191 X 10*3/uL (140-440); RBC 5.03 X 10*6/uL (4.40-5.60); RDW 17.5 % (11.5-14.5); WBC 10.03 X 10*3/uL (4.50-10.00)
[2023-04-08 14:43] LABS: BUN/Creat Ratio 15.62 Ratio (12.00-20.00)
== END | disposition home or self-care (01) ==
LOC: LABWHC1 07:56
PROVIDERS: ATTEND Student in an Organized Health Care Education/Training Program
DX: I50.9 Heart failure, unspecified (principal); I25.10 Atherosclerotic heart disease of native coronary artery without angina pectoris; I73.9 Peripheral vascular disease, unspecified
CPT/HCPCS: 36415; 80053; 80162; 82728; 83735; 83880; 84466; 85027

== ENCOUNTER → 2023-04-27 | Outpatient (CLI) | payer MEDICARE ==
[2023-04-27 09:45] LABS: ALT 25 U/L (4-49); AST 22 U/L (17-59); African American GFR (CKD) 67 (>60 ml/min/1.73 sqM); Albumin 4.4 g/dL (3.5-5.0); Albumin/Globulin Ratio 1.3; Alkaline Phosphatase 81 U/L (38-126); Anion Gap 13 mmol/L; Blood Urea Nitrogen 22 mg/dL (9-20); Calcium 9.9 mg/dL (8.4-10.2); Carbon Dioxide 28 mmol/L (22-30); Chloride 98 mmol/L (98-107); Globulin 3.4 g/dL; Glucose 214 mg/dL (74-99); Non-African American GFR(CKD) 58 (>60 ml/min/1.73 sqM); Potassium 4.9 mmol/L (3.5-5.1); Sodium 139 mmol/L (137-145); Total Bilirubin 0.6 mg/dL (0.2-1.3); Total Protein 7.8 g/dL (6.3-8.2)
[2023-04-27 09:53] LABS: NT-Pro-B-Type Natriuretic Pept 803 pg/mL
[2023-04-27 17:17] LABS: HCT 51.2 % (39.6-50.0); HGB 16.2 g/dL (13.0-17.0); MCH 29.5 pg (27.0-32.0); MCHC 31.6 g/dL (32.0-37.0); MCV 93.1 FL (80.0-97.0); NRBC Per 100 WBC 0 X 10*3/uL (0.00-0.01); Platelet Count 211 X 10*3/uL (140-440); RDW 17.1 % (11.5-14.5); WBC 10.48 X 10*3/uL (4.50-10.00)
== END | disposition home or self-care (01) ==
LOC: LABWHC1 07:58
PROVIDERS: ATTEND Student in an Organized Health Care Education/Training Program
DX: I50.9 Heart failure, unspecified (principal); N18.9 Chronic kidney disease, unspecified
CPT/HCPCS: 36415; 80053; 83880; 85027

== ENCOUNTER → 2023-05-10 | Outpatient (CLI) | payer MEDICARE ==
[2023-05-10 09:38] LABS: African American GFR (CKD) 80 (>60 ml/min/1.73 sqM); Anion Gap 11 mmol/L; Blood Urea Nitrogen 23 mg/dL (9-20); Calcium 9.3 mg/dL (8.4-10.2); Carbon Dioxide 25 mmol/L (22-30); Chloride 99 mmol/L (98-107); Digoxin <0.4 ng/mL; Glucose 251 mg/dL (74-99); Magnesium 2.1 mg/dL (1.6-2.3); Non-African American GFR(CKD) 69 (>60 ml/min/1.73 sqM); Potassium 4.6 mmol/L (3.5-5.1); Sodium 135 mmol/L (137-145)
[2023-05-10 09:43] LABS: NT-Pro-B-Type Natriuretic Pept 725 pg/mL
== END | disposition home or self-care (01) ==
LOC: LABWHC1 08:03
PROVIDERS: ATTEND Internal Medicine Cardiovascular Disease
DX: Z00.00 Encounter for general adult medical examination without abnormal findings (principal); I25.10 Atherosclerotic heart disease of native coronary artery without angina pectoris; I50.22 Chronic systolic (congestive) heart failure
CPT/HCPCS: 36415; 80048; 80162; 83036; 83735; 83880

== ENCOUNTER → 2023-05-25 | Outpatient (CLI) | payer MEDICARE ==
--- NOTE | 2023-05-25 16:34 | XR ---
EXAMINATION TYPE: XR cervical spine limited DATE OF EXAM: 05/25/2023 TECHNIQUE: Frontal, lateral, swimmer's, and open mouth view of the cervical spine are obtained. HISTORY: M54.12 COMPARISON: Cervical spine x-ray December 22, 2022 FINDINGS: The cervical spine is visualized from C1 thru the mid C6 level, persistent grade 1 anterol isthesis C4 on C5. The pre-vertebral soft tissue remaining within normal limits. The C1-C2 articula tion is within normal limits on the open mouth view. Vertebral body heights are preserved. Persistent moderate disc space narrowing and spurring at C5-C6 level. Suboptimal evaluation of lower cervical s pine despite attempted swimmer's view due to habitus and overlying upper extremity. Surgical clips in the right neck are redemonstrated. Moderate to severe vascular calcification in the left carotid bul b region is noted. IMPRESSION: As above. No significant change from most recent prior.
== END | disposition home or self-care (01) ==
LOC: RADXRMAIN 14:53
PROVIDERS: ATTEND Internal Medicine
DX: M50.122 Cervical disc disorder at C5-C6 level with radiculopathy (principal)
CPT/HCPCS: 72040

== ENCOUNTER → 2023-06-15 | Outpatient (CLI) | payer MEDICARE ==
[2023-06-15 15:12] LABS: ALT 28 U/L (10-49); AST 22 U/L (14-35); Albumin 4.2 g/dL (3.8-4.9); Alkaline Phosphatase 70 U/L (41-126); BUN/Creat Ratio 17.46 Ratio (12.00-20.00); Basophils # (A) 0.04 X 10*3/uL (0.00-0.10); Basophils % (A) 0.5 %; Blood Urea Nitrogen 22.7 mg/dL (9.0-27.0); Carbon Dioxide 26.8 mmol/L (21.6-31.8); Chloride 98 mmol/L (96-109); Chol/HDL Ratio 6.38 Ratio; Eosinophils # (A) 0.26 X 10*3/uL (0.04-0.35); Globulin 2.8 g/dL (1.6-3.3); Glucose 212 mg/dL (70-110); HCT 45.6 % (39.6-50.0); HGB 15.4 g/dL (13.0-17.0); Lymphocytes # (A) 1.95 X 10*3/uL (0.90-5.00); Lymphocytes % (A) 22.3 %; MCH 30.7 pg (27.0-32.0); MCHC 33.8 g/dL (32.0-37.0); Mean Platelet Volume 10.2 FL (9.5-12.2); NRBC Per 100 WBC 0 X 10*3/uL (0.00-0.01); Neutrophils # (A) 5.74 X 10*3/uL (1.80-7.70); Neutrophils % (A) 65.7 %; Platelet Count 152 X 10*3/uL (140-440); Potassium 4.7 mmol/L (3.5-5.5); Prostate Specific Antigen 1.58 ng/mL (0.000-4.500); RBC 5.01 X 10*6/uL (4.40-5.60); RDW 15.4 % (11.5-14.5); Sodium 138 mmol/L (135-145); Total Bilirubin 0.4 mg/dL (0.3-1.2); WBC 8.73 X 10*3/uL (4.50-10.00)
== END | disposition home or self-care (01) ==
LOC: LABWHC1 08:04
PROVIDERS: ATTEND Internal Medicine
DX: Z11.59 Encounter for screening for other viral diseases (principal); I73.9 Peripheral vascular disease, unspecified; E11.42 Type 2 diabetes mellitus with diabetic polyneuropathy; I25.10 Atherosclerotic heart disease of native coronary artery without angina pectoris; Z80.42 Family history of malignant neoplasm of prostate
CPT/HCPCS: 36415; 80053; 80061; 83036; 83721; 84153; 85025; 86803

== ENCOUNTER → 2023-07-13 | Outpatient (CLI) | payer MEDICARE ==
[2023-07-13 15:41] LABS: HCT 42.8 % (39.6-50.0); HGB 14.2 g/dL (13.0-17.0); MCH 30.7 pg (27.0-32.0); MCHC 33.2 g/dL (32.0-37.0); MCV 92.4 FL (80.0-97.0); Mean Platelet Volume 10.4 FL (9.5-12.2); NRBC Per 100 WBC 0 X 10*3/uL (0.00-0.01); Platelet Count 226 X 10*3/uL (140-440); RBC 4.63 X 10*6/uL (4.40-5.60); RDW 14.8 % (11.5-14.5); WBC 11.16 X 10*3/uL (4.50-10.00)
[2023-07-13 16:00] LABS: BUN/Creat Ratio 16.92 Ratio (12.00-20.00); Calcium 9.5 mg/dL (8.7-10.3); Carbon Dioxide 24.3 mmol/L (21.6-31.8); Chloride 97 mmol/L (96-109); Glucose 309 mg/dL (70-110); Sodium 137 mmol/L (135-145)
== END | disposition home or self-care (01) ==
LOC: LABWHC1 08:11
DX: I10 Essential (primary) hypertension (principal); E11.59 Type 2 diabetes mellitus with other circulatory complications; I42.9 Cardiomyopathy, unspecified; F17.211 Nicotine dependence, cigarettes, in remission; I25.10 Atherosclerotic heart disease of native coronary artery without angina pectoris; E78.2 Mixed hyperlipidemia; I87.323 Chronic venous hypertension (idiopathic) with inflammation of bilateral lower extremity; I70.221 Atherosclerosis of native arteries of extremities with rest pain, right leg
CPT/HCPCS: 36415; 80048; 85027

== ENCOUNTER → 2023-07-22 | Outpatient (CLI) | payer MEDICARE ==
[2023-07-22 09:35] LABS: NT-Pro-B-Type Natriuretic Pept 941 pg/mL
[2023-07-22 09:38] LABS: ALT 32 U/L (4-49); AST 28 U/L (17-59); African American GFR (CKD) 83 (>60 ml/min/1.73 sqM); Albumin 4.3 g/dL (3.5-5.0); Albumin/Globulin Ratio 1.5; Alkaline Phosphatase 77 U/L (38-126); Anion Gap 10 mmol/L; Blood Urea Nitrogen 22 mg/dL (9-20); Calcium 9.6 mg/dL (8.4-10.2); Carbon Dioxide 25 mmol/L (22-30); Chloride 102 mmol/L (98-107); Globulin 2.9 g/dL; Glucose 178 mg/dL (74-99); Non-African American GFR(CKD) 72 (>60 ml/min/1.73 sqM); Potassium 4.8 mmol/L (3.5-5.1); Sodium 137 mmol/L (137-145); Total Bilirubin 0.6 mg/dL (0.2-1.3); Total Protein 7.2 g/dL (6.3-8.2)
== END | disposition home or self-care (01) ==
LOC: LABWHC1 08:05
PROVIDERS: ATTEND Student in an Organized Health Care Education/Training Program
DX: E11.9 Type 2 diabetes mellitus without complications (principal); I50.9 Heart failure, unspecified; N18.9 Chronic kidney disease, unspecified
CPT/HCPCS: 36415; 80053; 83036; 83605; 83880

== ENCOUNTER → 2023-08-10 | Outpatient (CLI) | payer MEDICARE ==
[2023-08-10 10:59] LABS: HCT 44.7 % (39.6-50.0); HGB 14.5 g/dL (13.0-17.0); MCH 30.6 pg (27.0-32.0); MCHC 32.4 g/dL (32.0-37.0); MCV 94.3 FL (80.0-97.0); NRBC Per 100 WBC 0 X 10*3/uL (0.00-0.01); Platelet Count 187 X 10*3/uL (140-440); RBC 4.74 X 10*6/uL (4.40-5.60); WBC 10.45 X 10*3/uL (4.50-10.00)
[2023-08-10 11:21] LABS: BUN/Creat Ratio 11.92 Ratio (12.00-20.00); Blood Urea Nitrogen 15.5 mg/dL (9.0-27.0); Calcium 9.8 mg/dL (8.7-10.3); Carbon Dioxide 24.3 mmol/L (21.6-31.8); Chloride 100 mmol/L (96-109); Chol/HDL Ratio 4.84 Ratio; Glucose 203 mg/dL (70-110); LDL Cholesterol,Calculated 21.4 mg/dL (0.0-131.0); Potassium 4.7 mmol/L (3.5-5.5); Sodium 139 mmol/L (135-145)
== END | disposition home or self-care (01) ==
LOC: LABWHC1 07:44
DX: I10 Essential (primary) hypertension (principal); I42.9 Cardiomyopathy, unspecified; I70.221 Atherosclerosis of native arteries of extremities with rest pain, right leg; I25.10 Atherosclerotic heart disease of native coronary artery without angina pectoris; I87.323 Chronic venous hypertension (idiopathic) with inflammation of bilateral lower extremity; E11.59 Type 2 diabetes mellitus with other circulatory complications; F17.211 Nicotine dependence, cigarettes, in remission; E78.2 Mixed hyperlipidemia
CPT/HCPCS: 36415; 80048; 80061; 85027

== ENCOUNTER → 2023-08-26 | Outpatient (CLI) | payer MEDICARE ==
[2023-08-24 12:01] LABS: HCT 41.7 % (39.0-53.0); HGB 14.3 gm/dL (13.0-17.5); MCHC 34.4 g/dL (31.0-37.0); MCV 92.9 fL (80.0-100.0); Mean Platelet Volume 8.1; Platelet Count 249 k/uL (150-450); RBC 4.49 m/uL (4.30-5.90); RDW 15.5 % (11.5-15.5); WBC 12.6 k/uL (3.8-10.6)
--- NOTE | 2023-08-25 08:50 | US ---
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; PAD, rt popliteal artery stent 1 month ago History of: Smoker: previous Hypertension: No Diabetic: Yes Hyperlipidemia: No TIA/CVA: No Previous Vascular Surgery: right leg several vascular surgeries, cadaver vein, popliteal artery sten t CAD: No [place]: No Vascular Ulcers: No Claudication: Right Gangrene: No Doppler Waveforms: Right: Multiphasic Left: Multiphasic Right Brachial Pressure: 103 Left Brachial Pressure: 89 Ankle-Brachial Indices: Right: 0.97 Left: 0.93 Toe Brachial Indices: Right: could not occlude Left: could not occlude IMPRESSION: Ankle-brachial indices within normal limits bilaterally.
== END | disposition home or self-care (01) ==
LOC: RADUSWWP 08-24 10:42
PROVIDERS: ATTEND Hospitalist
DX: I70.221 Atherosclerosis of native arteries of extremities with rest pain, right leg (principal); E11.59 Type 2 diabetes mellitus with other circulatory complications; I42.9 Cardiomyopathy, unspecified; I10 Essential (primary) hypertension; I25.10 Atherosclerotic heart disease of native coronary artery without angina pectoris; E78.2 Mixed hyperlipidemia; I87.323 Chronic venous hypertension (idiopathic) with inflammation of bilateral lower extremity; F17.211 Nicotine dependence, cigarettes, in remission
CPT/HCPCS: 36415; 85027; 93922

== ENCOUNTER → 2023-11-02 | Outpatient (CLI) | payer MEDICARE ==
[2023-11-02 14:35] LABS: Basophils # (A) 0.05 X 10*3/uL (0.00-0.10); Basophils % (A) 0.4 %; Eosinophils # (A) 0.23 X 10*3/uL (0.04-0.35); HCT 46.1 % (39.6-50.0); HGB 15.2 g/dL (13.0-17.0); Lymphocytes # (A) 2.18 X 10*3/uL (0.90-5.00); Lymphocytes % (A) 19.3 %; MCH 30.3 pg (27.0-32.0); MCV 91.8 FL (80.0-97.0); Mean Platelet Volume 10.3 FL (9.5-12.2); Monocytes # (A) 0.84 X 10*3/uL (0.20-1.00); Monocytes % (A) 7.5 %; NRBC Per 100 WBC 0 X 10*3/uL (0.00-0.01); Neutrophils # (A) 7.93 X 10*3/uL (1.80-7.70); Neutrophils % (A) 70.4 %; Platelet Count 199 X 10*3/uL (140-440); RBC 5.02 X 10*6/uL (4.40-5.60); RDW 14.2 % (11.5-14.5); WBC 11.27 X 10*3/uL (4.50-10.00)
[2023-11-02 15:03] LABS: NT-Pro-B-Type Natriuretic Pept 394 pg/mL (0-125)
[2023-11-02 15:48] LABS: ALT 20 U/L (10-49); AST 18 U/L (14-35); Albumin 4.4 g/dL (3.8-4.9); Albumin/Globulin Ratio 1.63 Ratio (1.60-3.17); Alkaline Phosphatase 61 U/L (41-126); BUN/Creat Ratio 15.71 Ratio (12.00-20.00); Calcium 10.3 mg/dL (8.7-10.3); Carbon Dioxide 25.7 mmol/L (21.6-31.8); Chloride 96 mmol/L (96-109); Chol/HDL Ratio 4.19 Ratio; Globulin 2.7 g/dL (1.6-3.3); Glucose 182 mg/dL (70-110); LDL Cholesterol,Calculated 11.1 mg/dL (0.0-131.0); Potassium 4.7 mmol/L (3.5-5.5); Sodium 138 mmol/L (135-145); Total Bilirubin 0.4 mg/dL (0.3-1.2); Total Protein 7.1 g/dL (6.2-8.2)
== END | disposition home or self-care (01) ==
LOC: LABWHC1 08:35
PROVIDERS: ATTEND Internal Medicine
DX: I50.9 Heart failure, unspecified (principal); I25.10 Atherosclerotic heart disease of native coronary artery without angina pectoris; E78.5 Hyperlipidemia, unspecified; E11.42 Type 2 diabetes mellitus with diabetic polyneuropathy
CPT/HCPCS: 36415; 80053; 80061; 83036; 83880; 85025

== ENCOUNTER → 2024-04-11 | Outpatient (CLI) | payer MEDICARE ==
[2024-04-11 20:01] LABS: Basophils # (A) 0.04 X 10*3/uL (0.00-0.10); Basophils % (A) 0.4 %; Eosinophils # (A) 0.19 X 10*3/uL (0.04-0.35); Eosinophils % (A) 2.1 %; HGB 8.6 g/dL (13.0-17.0); Lymphocytes # (A) 1.56 X 10*3/uL (0.90-5.00); Lymphocytes % (A) 17.5 %; MCH 28.7 pg (27.0-32.0); MCHC 29.7 g/dL (32.0-37.0); MCV 96.7 FL (80.0-97.0); Mean Platelet Volume 11.3 FL (9.5-12.2); Monocytes # (A) 0.65 X 10*3/uL (0.20-1.00); Monocytes % (A) 7.3 %; NRBC Per 100 WBC 0.02 X 10*3/uL (0.00-0.01); Neutrophils # (A) 6.35 X 10*3/uL (1.80-7.70); Neutrophils % (A) 71.6 %; Platelet Count 189 X 10*3/uL (140-440); RDW 17.8 % (11.5-14.5); WBC 8.89 X 10*3/uL (4.50-10.00)
[2024-04-11 20:05] LABS: INR 1.29 sec (0.93-1.11); Prothrombin Time 13.7 sec (9.9-11.9)
[2024-04-11 21:39] LABS: ALT 480 U/L (10-49); AST 95 U/L (14-35); Albumin 3.8 g/dL (3.8-4.9); Albumin/Globulin Ratio 1.41 Ratio (1.60-3.17); Alkaline Phosphatase 120 U/L (41-126); BUN/Creat Ratio 13.14 Ratio (12.00-20.00); Blood Urea Nitrogen 27.6 mg/dL (9.0-27.0); Calcium 9.1 mg/dL (8.7-10.3); Carbon Dioxide 21.4 mmol/L (21.6-31.8); Chloride 102 mmol/L (96-109); Globulin 2.7 g/dL (1.6-3.3); Glucose 120 mg/dL (70-110); Potassium 3.9 mmol/L (3.5-5.5); Sodium 141 mmol/L (135-145); Total Bilirubin 0.5 mg/dL (0.3-1.2); Total Protein 6.5 g/dL (6.2-8.2)
== END | disposition home or self-care (01) ==
LOC: LABWHC1 13:25
PROVIDERS: ATTEND Internal Medicine Interventional Cardiology
DX: I25.10 Atherosclerotic heart disease of native coronary artery without angina pectoris (principal)
CPT/HCPCS: 36415; 80053; 85025; 85610

== ENCOUNTER → 2024-08-24 | Outpatient (CLI) | payer MEDICARE ==
--- NOTE | 2024-08-24 11:37 | CTL ---
EXAMINATION TYPE: CT Low Dose Lung DATE OF EXAM ORDERED: 08/24/2024 COMPARISON: CTA chest 11/19/2021 CLINICAL INDICATION: Male, 68 years old with history of Z12.2 LUNG CA SCR Z87.891 [employer]MER [employer]; [facility], Former smoker quit x3yrs. Hx of 1PPD x50yrs., Lung cancer screening, History of Smoking/tobacco use. TECHNIQUE: Low dose computed tomography scan was performed through the chest at 1 mm thick sections a nd reconstructed images in multiple planes at 1 mm and [address] DLP: 80.[address] CTDI: 2.4 mGy Automated exposure control for dose reduction was used. CT DIAGNOSTIC QUALITY: Satisfactory FINDINGS: Nodules: Medial right midlung calcified granuloma measuring up to 3 mm. Few scattered bilateral micronodules m easuring less than 4 mm with exam including a right middle lobe 3.6 mm pulmonary nodule (series 4, im age 89). LUNGS: COPD: Severity: None Fibrosis: Severity: None Lymph nodes: None Other findings: None RIGHT PLEURAL SPACE: Effusion: None Calcification: None Thickening: None Pneumothorax: None LEFT PLEURAL SPACE: Effusion: None Calcification: None Thickening: None Pneumothorax: None HEART: Heart Size: Mildly Enlarged. Small aortic valvular calcifications. Coronary Calcification: Severe Pericardial Effusion: None OTHER FINDINGS: Upper abdomen: Left renal upper pole 5.5 cm cyst. Bony thorax: Right shoulder arthroplasty change. Multilevel osteophytosis of the thoracic spine. Supraclavicular region: None Other: Left chest wall cardiac pacemaker device with leads terminating in the cardiac septum, right a trium and right ventricle. Mild atherosclerotic calcification of the aorta and its branches. IMPRESSION: 1.No clinically significant pulmonary nodule greater than 4 mm. 2. Severe three-vessel coronary artery calcifications. CT LUNG RAD AND CT CHEST RECOMMENDATION: Lung-Rad 2 Benign Appearance or Behavior: Continue annual sc reening with LDCT in 12 months. S Modifier (other clinically significant findings): None [facility], , 08/24/2024 11:34 AM
== END | disposition home or self-care (01) ==
LOC: RADCTMAIN 11:04
PROVIDERS: ATTEND Internal Medicine
DX: Z12.2 Encounter for screening for malignant neoplasm of respiratory organs (principal); I25.10 Atherosclerotic heart disease of native coronary artery without angina pectoris; Z87.891 Personal history of nicotine dependence
CPT/HCPCS: 71271